=== PATIENT | male | born 1985 | race Caucasian/White ===

== ENCOUNTER 2023-08-25 01:14 | Emergency (ER) | payer SELFPAY ==
[2023-08-25 01:43] VITALS: BP 115/80
[2023-08-25 03:26] VITALS: PULSE 68; RESP 16
== END 2023-08-25 03:12 | disposition home or self-care (01) ==
LOC: EC 01:14
DX: Z02.83 Encounter for blood-alcohol and blood-drug test (principal)
CPT/HCPCS: 99499

== ENCOUNTER 2024-09-21 23:34 | Inpatient (IN) | payer OTHER ==
--- NOTE | 2024-09-22 00:07 | ED ---
Abdominal Pain HPI - General Chief Complaint: Abdominal Pain Stated Complaint: Abdominal Pain Time Seen by Provider: 09/21/24 23:49 Source: patient, EMS Mode of arrival: EMS Limitations: no limitations - History of Present Illness Initial Comments: Patient is a 39-year-old man with history of Crohn's disease. He presents to have evaluation of diffuse abdominal pain. The patient states he had been at work and started having abdominal pain that progressed until it was severe. He states it had come on about an hour prior to calling EMS. He states he has had similar episodes to this including 10 days ago when he was seen in emergency department here. The patient states at that time he had been discharged with prescription to have a course of steroid and other medication but he did not get the prescriptions filled. The patient states that he did have a bowel movement about 3 hours ago and that it was normal. No change in urination. He has had nausea. No hematemesis. Patient states he has had appendectomy when he was a youth. MD Complaint: abdominal pain Onset/Timin -: hour(s) Location: diffuse Radiation: none Migration to: no migration Severity: severe Quality: cramping, fullness Consistency: constant Improves With: nothing Worsens With: nothing Associated Symptoms: nausea - Related Data Home Medications Medication Instructions Recorded Confirmed No Known Home Medications 09/22/24 09/22/24 Allergies Allergy/AdvReac Type Severity Reaction Status Date / Time No Known Allergies Allergy Verified 09/22/24 09:43 Review of Systems ROS Statement: Those systems with pertinent positive or pertinent negative responses have been documented in the HPI. ROS Other: All systems not noted in ROS Statement are negative. Constitutional: Denies: fever, chills Respiratory: Denies: cough, dyspnea Cardiovascular: Denies: chest pain, palpitations, edema, syncope Gastrointestinal: Reports: abdominal pain, nausea. Denies: vomiting, diarrhea, constipation, melena, hematochezia Genitourinary: Denies: dysuria, hematuria, testicular pain, testicular mass Musculoskeletal: Denies: back pain Skin: Denies: rash Neurological: Denies: headache, weakness, numbness Past Medical History Additional Past Medical History / Comment(s): Crohns History of Any Multi-Drug Resistant Organisms: None Reported Past Surgical History: Appendectomy Past Psychological History: No Psychological Hx Reported Smoking Status: Current every day smoker, Vaper Past Alcohol Use History: Occasional Past Drug Use History: Marijuana General Exam Limitations: no limitations General appearance: alert, in no apparent distress Head exam: Present: atraumatic, normocephalic Eye exam: Present: normal appearance. Absent: scleral icterus, conjunctival injection ENT exam: Present: other (poor dentition) Neck exam: Present: normal inspection Respiratory exam: Present: normal lung sounds bilaterally. Absent: respiratory distress, wheezes, rales, rhonchi, stridor, accessory muscle use Cardiovascular Exam: Present: normal rhythm, bradycardia, normal heart sounds. Absent: systolic murmur, diastolic murmur, rubs, gallop GI/Abdominal exam: Present: distended, tenderness. Absent: guarding, rebound, rigid, mass, pulsatile mass, hernia Extremities exam: Present: normal inspection, normal capillary refill. Absent: pedal edema, calf tenderness Back exam: Present: normal inspection. Absent: CVA tenderness (R), CVA tenderness (L) Neurological exam: Present: alert Skin exam: Present: warm, dry, intact, normal color. Absent: rash Course Vital Signs 09/21/24 09/22/24 09/22/24 23:38 02:00 03:00 Temperature 97.8 F Pulse Rate 47 L 46 L 42 L Respiratory 20 20 18 Rate Blood Pressure 146/88 141/73 138/73 O2 Sat by Pulse 100 100 98 Oximetry 09/22/24 09/22/24 04:00 05:00 Temperature Pulse Rate 42 L 89 Respiratory 16 18 Rate Blood Pressure 122/72 138/82 O2 Sat by Pulse 96 100 Oximetry Medical Decision Making - Medical Decision Making Patient is a 39-year-old man here with abdominal pain. Patient is found to have distended abdomen with mild diffuse tenderness no rebound or guarding. The patient did have borborygmus. He is sent for CT scan and I did receive report that there were concerns about volvulus, however the symptoms had resolved after he had walked, had and passed some flatus an episode of vomiting. The patient's repeat lactic acid also decreasing. I did discuss the report with Dr. Reyes. Patient had been feeling better and was wanting to go home but then his symptoms began to recur. He had another episode of vomiting and recurrence of pain therefore patient will be admitted. At this time he did agree to have NG tube which he had initially refused which is placed by nursing staff and he is having nonbloody, clear yellow stomach content. - Lab Data Result diagrams: 09/22/24 18:30 09/22/24 18:30 Lab Results 09/21/24 09/21/24 09/21/24 Range/Units 23:50 23:50 23:50 WBC 15.72 H (4.50-10.00) 10*3/uL RBC 3.79 L (4.40-5.60) 10*6/uL Hgb 12.4 L (13.0-17.0) g/dL Hct 36.8 L (39.6-50.0) % MCV 97.1 H (80.0-97.0) fL MCH 32.7 H (27.0-32.0) pg MCHC 33.7 (32.0-37.0) g/dL Plt Count 498 H (140-440) 10*3/uL MPV 9.8 (9.5-12.2) fL Immature Gran % (Auto) 0.4 % Neutrophils % 66.2 % Lymphocytes % 23.7 % Monocytes % 7.9 % Eosinophils % 1.1 % Basophils % 0.7 % Immature Gran # 0.06 H (0.00-0.04) 10*3/uL Neutrophils # 10.41 H (1.80-7.70) 10*3/uL Lymphocytes # 3.73 (0.90-5.00) 10*3/uL Monocytes # 1.24 H (0.20-1.00) 10*3/uL Eosinophils # 0.17 (0.04-0.35) 10*3/uL Basophils # 0.11 H (0.00-0.10) 10*3/uL Sodium 142 (137-145) mmol/L Potassium 3.5 (3.5-5.1) mmol/L Chloride 107 (98-107) mmol/L Carbon Dioxide 20 L (22-30) mmol/L Anion Gap 15 mmol/L BUN 14 (9-20) mg/dL Creatinine 0.72 (0.66-1.25) mg/dL Est GFR (CKD-EPI)AfAm >90 (>60 ml/min/1.73 sqM) Est GFR (CKD-EPI)NonAf >90 (>60 ml/min/1.73 sqM) Glucose 108 H (74-99) mg/dL Lactic Ac Sepsis Rflx Plasma Lactic Acid Juan J 2.4 H* (0.7-2.0) mmol/L Calcium 10.0 (8.4-10.2) mg/dL Total Bilirubin 0.7 (0.2-1.3) mg/dL AST 48 (17-59) U/L ALT 56 H (4-49) U/L Alkaline Phosphatase 147 H (38-126) U/L C-Reactive Protein <0.5 (<1.0) mg/dL Total Protein 7.6 (6.3-8.2) g/dL Albumin 4.6 (3.5-5.0) g/dL Amylase 46 (30-110) U/L Lipase 68 (23-300) U/L Blood Type Confirm 09/21/24 09/22/24 09/22/24 Range/Units 23:50 00:49 03:19 WBC (4.50-10.00) 10*3/uL RBC (4.40-5.60) 10*6/uL Hgb (13.0-17.0) g/dL Hct (39.6-50.0) % MCV (80.0-97.0) fL MCH (27.0-32.0) pg MCHC (32.0-37.0) g/dL Plt Count (140-440) 10*3/uL MPV (9.5-12.2) fL Immature Gran % (Auto) % Neutrophils % % Lymphocytes % % Monocytes % % Eosinophils % % Basophils % % Immature Gran # (0.00-0.04) 10*3/uL Neutrophils # (1.80-7.70) 10*3/uL Lymphocytes # (0.90-5.00) 10*3/uL Monocytes # (0.20-1.00) 10*3/uL Eosinophils # (0.04-0.35) 10*3/uL Basophils # (0.00-0.10) 10*3/uL Sodium (137-145) mmol/L Potassium (3.5-5.1) mmol/L Chloride (98-107) mmol/L Carbon Dioxide (22-30) mmol/L Anion Gap mmol/L BUN (9-20) mg/dL Creatinine (0.66-1.25) mg/dL Est GFR (CKD-EPI)AfAm (>60 ml/min/1.73 sqM) Est GFR (CKD-EPI)NonAf (>60 ml/min/1.73 sqM) Glucose (74-99) mg/dL Lactic Ac Sepsis Rflx Y Plasma Lactic Acid Juan J 1.5 (0.7-2.0) mmol/L Calcium (8.4-10.2) mg/dL Total Bilirubin (0.2-1.3) mg/dL AST (17-59) U/L ALT (4-49) U/L Alkaline Phosphatase (38-126) U/L C-Reactive Protein (<1.0) mg/dL Total Protein (6.3-8.2) g/dL Albumin (3.5-5.0) g/dL Amylase (30-110) U/L Lipase (23-300) U/L Blood Type Confirm O Negative Disposition Clinical Impression: Abdominal pain Disposition: ADMITTED IP TO THIS HOSP Condition: Undetermined Is patient prescribed a controlled substance at d/c from ED?: No
[2024-09-22 00:19] LABS: Basophils # (A) 0.11 10*3/uL (0.00-0.10); Basophils % (A) 0.7 %; Eosinophils # (A) 0.17 10*3/uL (0.04-0.35); Eosinophils % (A) 1.1 %; HCT 36.8 % (39.6-50.0); HGB 12.4 g/dL (13.0-17.0); Lymphocytes # (A) 3.73 10*3/uL (0.90-5.00); Lymphocytes % (A) 23.7 %; MCH 32.7 pg (27.0-32.0); MCHC 33.7 g/dL (32.0-37.0); MCV 97.1 fL (80.0-97.0); Mean Platelet Volume 9.8 fL (9.5-12.2); Monocytes # (A) 1.24 10*3/uL (0.20-1.00); Monocytes % (A) 7.9 %; Neutrophils # (A) 10.41 10*3/uL (1.80-7.70); Neutrophils % (A) 66.2 %; Platelet Count 498 10*3/uL (140-440); RBC 3.79 10*6/uL (4.40-5.60); RDW 14.9 % (11.5-14.5); WBC 15.72 10*3/uL (4.50-10.00)
[2024-09-22] MEDS: SODIUM CHLORIDE 0.9% 500 ML 500 ML IV STA (00:24)
[2024-09-22] MEDS: MORPHINE SULFATE 4 MG/ML SYRINGE IV STA ×2 (00:25→00:55)
[2024-09-22 00:29] LABS: ALT 56 U/L (4-49); AST 48 U/L (17-59); African American GFR (CKD) >90 (>60 ml/min/1.73 sqM); Albumin 4.6 g/dL (3.5-5.0); Alkaline Phosphatase 147 U/L (38-126); Amylase 46 U/L (30-110); Anion Gap 15 mmol/L; Blood Urea Nitrogen 14 mg/dL (9-20); C Reactive Protein <0.5 mg/dL (<1.0); Carbon Dioxide 20 mmol/L (22-30); Chloride 107 mmol/L (98-107); Glucose 108 mg/dL (74-99); Lipase 68 U/L (23-300); Non-African American GFR(CKD) >90 (>60 ml/min/1.73 sqM); Potassium 3.5 mmol/L (3.5-5.1); Sodium 142 mmol/L (137-145); Total Bilirubin 0.7 mg/dL (0.2-1.3); Total Protein 7.6 g/dL (6.3-8.2)
[2024-09-22] MEDS: HYDROmorphone 0.5 MG/0.5 ML SYRINGE IVP STA ×3 (01:21→06:27)
--- NOTE | 2024-09-22 04:11 | CT ---
EXAM: CT Abdomen and Pelvis With Intravenous Contrast CLINICAL HISTORY: Diffuse Abdominal Pain TECHNIQUE: Axial computed tomography images of the abdomen and pelvis with intravenous contrast. CTDI is 14 mGy and DLP is 764.8 mGy-cm. This CT exam was performed using one or more of the following dose reduction techniques: automated exposure control, adjustment of the mA and/or kV according to patient size, and/or use of iterative reconstruction technique. COMPARISON: CT abdomen and pelvis 09/12/2024 FINDINGS: Lung bases: Unremarkable. No mass. No consolidation. ABDOMEN: Liver: Unremarkable. No mass. Gallbladder and bile ducts: Unremarkable. No calcified stones. No ductal dilation. Pancreas: Unremarkable. No mass. No ductal dilation. Spleen: Unremarkable. No splenomegaly. Adrenals: Unremarkable. No mass. Kidneys and ureters: Simple appearing bilateral renal cysts are present, no follow up is needed. No hydronephrosis. Stomach and bowel: Redemonstrated markedly distended small bowel with new thickening of the wall of the portion small bowel. PELVIS: Appendix: No findings to suggest acute appendicitis. Bladder: Unremarkable. No mass. Reproductive: Unremarkable as visualized. ABDOMEN and PELVIS: Intraperitoneal space: On the coronal images there appears to be swirling of the mesentery at the level of the occlusion of the SMA. No free air. No significant fluid collection. Bones/joints: No acute fracture. No dislocation. Soft tissues: Unremarkable. 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 No abdominal aortic aneurysm. Lymph nodes: Mesenteric lymphadenopathy is nonspecific. IMPRESSION: 1. 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 2. Redemonstrated markedly distended small bowel with new thickening of the wall of the portion small bowel. This is highly concerning for ischemia. 3. On the coronal images there appears to be swirling of the mesentery at the level of the occlusion of the SMA. Given this closed loop obstruction is high in the differential and could be the etiology of the occlusion of the SMA. Surgical consultation is recommended. 4. Mesenteric lymphadenopathy is nonspecific. <MYCVCSECTION> Communications: 09/22/24 04:18 Call Doctor Regarding Above results, called Dr. Walters on 09/22 04:18 (-04:00)
[2024-09-22] MEDS ORDERED: NALOXONE 0.4 MG/ML 1 ML VIAL IV PRN (05:09)
[2024-09-22] MEDS: SODIUM CHLORIDE 0.9% 1,000 ML IV SCH (06:27)
[2024-09-22] MEDS: ONDANSETRON 4 MG/2 ML VIAL IVP STA (06:28)
[2024-09-22] MEDS ORDERED: IOPAMIDOL CONTRAST (ORAL USE) VIAL PO PRN (06:58)
--- NOTE | 2024-09-22 07:13 | XR ---
EXAMINATION TYPE: XR chest 1V confirm line plcmt DATE OF EXAM: 09/22/2024 6:46 AM COMPARISON: CT CLINICAL INDICATION: Male, 39 years old with history of ng tube placement; [facility] TECHNIQUE: XR chest 1V confirm line plcmt Frontal view of the chest. FINDINGS: Lungs/Pleura: There is no evidence of pleural effusion, focal consolidation, or pneumothorax. Pulmonary vascularity: Unremarkable. Heart/mediastinum: Cardiomediastinal silhouette is unremarkable. Musculoskeletal: No acute osseous pathology. Other findings: Gaseous dilation of bowel throughout the abdomen Lines/Tubes: Nasogastric tube with its distal tip and side-port projecting under the diaphragm. IMPRESSION: Gaseous dilation of bowel throughout the abdomen with NG tube in appropriate position. [facility], , 09/22/2024 7:10 AM
--- NOTE | 2024-09-22 09:05 | P.GSCN ---
History of Present Illness Consult date: 09/22/24 Reason for Consult: Acute abdominal pain, nausea vomiting History of present illness: This is a 39-year-old male who presented the emergency room with complaints of severe abdominal pain nausea and vomiting. Patient was seen with similar symp toms on September 17 in the ER. Patient was sent home as it was thought to be a flareup of his Crohn's. Patient was prescribed prednisone. Patient has had increased abdominal distention nausea and abdominal pain. Patient is moaning in his bed. Patient's CAT scan is suggestive of possible small bowel ischemia with internal herniation and occlusion of the SMA. The patient has a massively distended stomach and small bowel. Past Medical History Additional Past Medical History / Comment(s): Crohns History of Any Multi-Drug Resistant Organisms: None Reported Past Surgical History: Appendectomy Past Psychological History: No Psychological Hx Reported Smoking Status: Current every day smoker, Vaper Past Alcohol Use History: Occasional Past Drug Use History: Marijuana Medications and Allergies Home Medications Medication Instructions Recorded Confirmed Type Ondansetron Odt [Zofran Odt] 4 mg PO Q8HR PRN #10 tab 09/12/24 Rx predniSONE [Deltasone] 40 mg PO DAILY 7 Days #14 tab 09/12/24 Rx Allergies Allergy/AdvReac Type Severity Reaction Status Date / Time No Known Allergies Allergy Verified 09/21/24 23:41 Surgical - Exam Vital Signs Temp Pulse Resp BP Pulse Ox 97.8 F 47 L 20 146/88 100 09/21/24 23:38 09/21/24 23:38 09/21/24 23:38 09/21/24 23:38 09/21/24 23:38 - General moderate distress, chronically ill - Eyes PERRL - ENT normal pinna - Cardiovascular Rhythm: regular - Abdomen Abdomen is massively distended. There is rebound tenderness. Results - Labs 09/21/24 23:50 09/21/24 23:50 Abnormal Lab Results - Last 24 Hours (Table) 09/21/24 09/21/24 09/21/24 Range/Units 23:50 23:50 23:50 WBC 15.72 H (4.50-10.00) 10*3/uL RBC 3.79 L (4.40-5.60) 10*6/uL Hgb 12.4 L (13.0-17.0) g/dL Hct 36.8 L (39.6-50.0) % MCV 97.1 H (80.0-97.0) fL MCH 32.7 H (27.0-32.0) pg Plt Count 498 H (140-440) 10*3/uL Immature Gran # 0.06 H (0.00-0.04) 10*3/uL Neutrophils # 10.41 H (1.80-7.70) 10*3/uL Monocytes # 1.24 H (0.20-1.00) 10*3/uL Basophils # 0.11 H (0.00-0.10) 10*3/uL Carbon Dioxide 20 L (22-30) mmol/L Glucose 108 H (74-99) mg/dL Plasma Lactic Acid Juan J 2.4 H* (0.7-2.0) mmol/L ALT 56 H (4-49) U/L Alkaline Phosphatase 147 H (38-126) U/L Diabetes panel 09/21/24 Range/Units 23:50 Sodium 142 (137-145) mmol/L Potassium 3.5 (3.5-5.1) mmol/L Chloride 107 (98-107) mmol/L Carbon Dioxide 20 L (22-30) mmol/L BUN 14 (9-20) mg/dL Creatinine 0.72 (0.66-1.25) mg/dL Glucose 108 H (74-99) mg/dL Calcium 10.0 (8.4-10.2) mg/dL AST 48 (17-59) U/L ALT 56 H (4-49) U/L Alkaline Phosphatase 147 H (38-126) U/L Total Protein 7.6 (6.3-8.2) g/dL Albumin 4.6 (3.5-5.0) g/dL Calcium panel 09/21/24 Range/Units 23:50 Calcium 10.0 (8.4-10.2) mg/dL Albumin 4.6 (3.5-5.0) g/dL Pituitary panel 09/21/24 Range/Units 23:50 Sodium 142 (137-145) mmol/L Potassium 3.5 (3.5-5.1) mmol/L Chloride 107 (98-107) mmol/L Carbon Dioxide 20 L (22-30) mmol/L BUN 14 (9-20) mg/dL Creatinine 0.72 (0.66-1.25) mg/dL Glucose 108 H (74-99) mg/dL Calcium 10.0 (8.4-10.2) mg/dL Adrenal panel 09/21/24 Range/Units 23:50 Sodium 142 (137-145) mmol/L Potassium 3.5 (3.5-5.1) mmol/L Chloride 107 (98-107) mmol/L Carbon Dioxide 20 L (22-30) mmol/L BUN 14 (9-20) mg/dL Creatinine 0.72 (0.66-1.25) mg/dL Glucose 108 H (74-99) mg/dL Calcium 10.0 (8.4-10.2) mg/dL Total Bilirubin 0.7 (0.2-1.3) mg/dL AST 48 (17-59) U/L ALT 56 H (4-49) U/L Alkaline Phosphatase 147 H (38-126) U/L Total Protein 7.6 (6.3-8.2) g/dL Albumin 4.6 (3.5-5.0) g/dL Assessment and Plan Plan: Small bowel obstruction. Patient will be taken to the OR today.
[2024-09-22] MEDS: HYDROmorphone 0.5 MG/0.5 ML SYRINGE IVP PRN (09:19)
[2024-09-22] MEDS: PANTOPRAZOLE 40 MG/10 ML VIAL IV SCH (09:20)
[2024-09-22 09:55] LABS: Glucose,Whole Blood 255 mg/dL (70-110)
[2024-09-22] MEDS: ALBUMIN HUMAN 5% 250 ML in EMPTY BAG 1 BAG IVPB STA (10:26)
[2024-09-22] MEDS ORDERED: ETOMIDATE 2 MG/ML 10 ML VIAL ONE (10:47)
[2024-09-22] MEDS ORDERED: KETAMINE HCL IN 0.9 % NACL 50 MG/5 ML SYRINGE ONE (10:47)
[2024-09-22] MEDS ORDERED: VASOPRESSIN 20 UNIT/ML 1 ML VIAL ONE (10:47)
[2024-09-22] MEDS ORDERED: SUCCINYLCHOLINE CHLORIDE 200 MG/10 ML VIAL IV ONE (10:47)
[2024-09-22] MEDS ORDERED: SODIUM BICARB 8.4% 50 ML SYR (1 MEQ/ML) ONE (10:47)
[2024-09-22] MEDS ORDERED: PROPOFOL 10 MG/ML 20 ML VIAL IV ONE (10:47)
[2024-09-22] MEDS ORDERED: WATER FOR INJECTION, STERILE 10 ML VIAL IV ONE (10:47)
[2024-09-22] MEDS ORDERED: CALCIUM CHLORIDE 100 MG/ML 10 ML SYRINGE ONE (10:47)
[2024-09-22] MEDS ORDERED: ROCURONIUM 10 MG/ML (5 ML VIAL) IV ONE (10:47)
[2024-09-22] MEDS: LACTATED RINGERS 1,000 ML IV ONE ×4 (10:52→18:50)
--- NOTE | 2024-09-22 11:10 | XR ---
EXAMINATION TYPE: XR chest 1V portable DATE OF EXAM: 09/22/2024 10:37 AM COMPARISON: Chest radiographs from CLINICAL INDICATION: Male, 39 years old with history of check line placement; [facility] TECHNIQUE: XR chest 1V portable Frontal view of the chest. FINDINGS: Lungs/Pleura: There is no evidence of pleural effusion, focal consolidation, or pneumothorax. Pulmonary vascularity: Unremarkable. Heart/mediastinum: Cardiomediastinal silhouette is unremarkable. Musculoskeletal: No acute osseous pathology. Other findings: Gaseous dilation of bowel in the abdomen. Lines/Tubes: Nasogastric tube with its distal tip and side-port projecting under the diaphragm. Right internal jugular central venous catheter with distal tip at the cavoatrial junction. IMPRESSION: 1. No acute cardiopulmonary disease/process. 2. NG tube noted in appropriate position. Gaseous dilation of bowel throughout the abdomen. [facility], , 09/22/2024 11:08 AM
[2024-09-22 12:28] LABS: Allen Test Performed? Yes
[2024-09-22 12:30] LABS: ABG Base Excess -14.2 mmol/L; ABG HCO3 14 mmol/L (21-25); ABG Oxygen Saturation 97.7 % (94-97); ABG PCO2 40 mmHg (35-45); ABG PO2 249 mmHg (83-108); ABG TCO2 15 mmol/L (19-24)
--- NOTE | 2024-09-22 12:30 | P.OP ---
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 He received general anesthesia. His abdomen was prepped and draped you sterile fashion. The abdomen was tense and quite distended. A skin incision was made. And then the skin abdominal cavity is entered by dividing the abdominal wall with electrocautery. The small bowel appeared to be dusky and was massively dilated. The small bowel was dilated to approximately 15 cm in diameter. Due to the small bowel dilatation it was very difficult to see the source of the obstruction. At this point a enterotomy was made in the small bowel and then decompression of the small bowel was performed with suction. Approximately 7 L of fluid was removed from the small bowel. The enterotomy was then stapled with a BI stapler. At this point the small bowel obstruction was visualized. The small bowel had been previously operated on. There was evidence of a ileotrans verse colonic anastomosis. It was unsure if the area prior to the anastomosis was strictured down due to scar tissue or Crohn's disease. The small bowel was transected proximal to the stricture and then the colon was transected distal to the stricture and then using the Enseal device the mesentery of the bowel was divided and steps of the pathology. At this point there appeared to be rotation of the small bowel. The small bowel w was rotated to relieve the torsion. The small bowel appeared to be viable. At this point the ileostomy brought up in the right lower quadrant. The fascia was closed looped in #1-0 PDS suture. The skin was closed A rodrigo s. The ileostomy matured with 3-0 Vicryl suture. Patient tolerated procedure. He was sent to the ICU in critical condition.
[2024-09-22 12:31] LABS: ABG PH 7.15 (7.35-7.45)
[2024-09-22 12:32] LABS: INR 1.5 (<1.2); Prothrombin Time 15.3 sec (10.0-12.5)
[2024-09-22 12:42] LABS: ALT 28 U/L (4-49); AST 25 U/L (17-59); African American GFR (CKD) >90 (>60 ml/min/1.73 sqM); Albumin 2.7 g/dL (3.5-5.0); Alkaline Phosphatase 67 U/L (38-126); Anion Gap 18 mmol/L; Blood Urea Nitrogen 16 mg/dL (9-20); Calcium 7.7 mg/dL (8.4-10.2); Carbon Dioxide 12 mmol/L (22-30); Chloride 114 mmol/L (98-107); Glucose 233 mg/dL (74-99); Non-African American GFR(CKD) >90 (>60 ml/min/1.73 sqM); Potassium 3.4 mmol/L (3.5-5.1); Sodium 144 mmol/L (137-145); Total Bilirubin 0.3 mg/dL (0.2-1.3); Total Protein 4.7 g/dL (6.3-8.2)
[2024-09-22] MEDS ORDERED: Magnesium Replacement Protocol 1 EACH MISC MISCELLANE PRN (12:53)
[2024-09-22] MEDS ORDERED: Potassium Replacement Protocol 1 EACH MISC MISCELLANE PRN (12:53)
[2024-09-22 13:03] LABS: Glucose,Whole Blood 181 mg/dL (70-110)
[2024-09-22 13:16] LABS: ABG Base Excess -6.8 mmol/L; ABG HCO3 20 mmol/L (21-25); ABG Oxygen Saturation 98.5 % (94-97); ABG PCO2 48 mmHg (35-45); ABG PH 7.24 (7.35-7.45); ABG PO2 279 mmHg (83-108); ABG TCO2 22 mmol/L (19-24); Allen Test Performed? Yes
[2024-09-22 13:23] LABS: Basophils # (A) 0.04 10*3/uL (0.00-0.10); Basophils % (A) 0.3 %; HCT 28.6 % (39.6-50.0); Lymphocytes # (A) 1.04 10*3/uL (0.90-5.00); Lymphocytes % (A) 7.7 %; MCHC 33.2 g/dL (32.0-37.0); MCV 96.3 fL (80.0-97.0); Mean Platelet Volume 8.9 fL (9.5-12.2); Monocytes # (A) 1.04 10*3/uL (0.20-1.00); Monocytes % (A) 7.7 %; Neutrophils # (A) 11.33 10*3/uL (1.80-7.70); Neutrophils % (A) 84.1 %; Platelet Count 233 10*3/uL (140-440); RBC 2.97 10*6/uL (4.40-5.60); RDW 16.8 % (11.5-14.5); WBC 13.48 10*3/uL (4.50-10.00)
--- NOTE | 2024-09-22 13:24 | P.HPIM ---
History of Present Illness 39-year-old male with history of severe Crohn's came to the hospital with nausea vomiting patient was recently discharged from the hospital after he was treated for Crohn's with prednisone. Patient is found to have bowel obstruction. Patient was taken to IR even before I evaluated the patient. 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 Patient underwent expiratory laparotomy and decompression of the small bowel, ileocolonic anastomotic resection and ileostomy creation. Patient is presently intubated on pressor support patient probably will require 2 pressors at this time receiving IV fluids. REVIEW OF SYSTEMS: All other systems are negative except those mentioned in the HPI PHYSICAL EXAMINATION: GENERAL intubated sedated on ventilatory support. HEENT: Pupils are round and equally reacting to light. EOMI. No scleral icterus. No conjunctival pallor. Normocephalic, atraumatic. No pharyngeal erythema. No thyromegaly. CARDIOVASCULAR: S1 and S2 present. No murmurs, rubs, or gallops. PULMONARY: Chest is clear to auscultation, no wheezing or crackles. ABDOMEN: Postsurgical defect abdomen, ileostomy MUSCULOSKELETAL: No joint swelling or deformity. EXTREMITIES: No cyanosis, clubbing, or pedal edema. NEUROLOGICAL sedated SKIN: No rashes. Assessment and plan -Small bowel obstruction status post small bowel resection patient has Crohn's disease and stricture secondary to that patient is presently hemodynamically unstable is on ventilatory support - Acute respiratory failure ventilator dependence post to surgery - Hypovolemic shock for which patient is on 2 pressors patient is presently not on IV antibiotics patient may end up needing empiric antibiotics. Continue with IV fluids - History of Crohn's disease complicated Hypokalemia replace potassium DVT prophylaxis: Subcutaneous heparin Past Medical History Additional Past Medical History / Comment(s): Crohns History of Any Multi-Drug Resistant Organisms: None Reported Past Surgical History: Appendectomy Past Psychological History: No Psychological Hx Reported Smoking Status: Current every day smoker, Vaper Past Alcohol Use History: Occasional Past Drug Use History: Marijuana Medications and Allergies Home Medications Medication Instructions Recorded Confirmed Type No Known Home Medications 09/22/24 09/22/24 History Allergies Allergy/AdvReac Type Severity Reaction Status Date / Time No Known Allergies Allergy Verified 09/22/24 09:43 Physical Exam Vitals: Vital Signs Temp Pulse Pulse Resp BP BP Pulse Ox 09/22/24 13:04 09/22/24 12:57 09/22/24 10:40 155 H 45 H 110/47 89 L 09/22/24 10:16 150 H 35 H 124/90 95 09/22/24 10:09 97.5 F L 144 H 35 H 154/82 96 09/22/24 05:00 89 18 138/82 100 09/22/24 04:00 42 L 16 122/72 96 09/22/24 03:00 42 L 18 138/73 98 09/22/24 02:00 46 L 20 141/73 100 09/21/24 23:38 97.8 F 47 L 20 146/88 100 FiO2 09/22/24 13:04 60 09/22/24 12:57 60 09/22/24 10:40 09/22/24 10:16 09/22/24 10:09 09/22/24 05:00 09/22/24 04:00 09/22/24 03:00 09/22/24 02:00 09/21/24 23:38 Intake and Output 09/21/24 09/22/24 09/22/24 22:59 06:59 14:59 Intake Total 2375 Output Total 360 2014 Intake: IV 1800 Blood Product 575 Rc Pheresis 2 As3 Unit 295 [id number] Rc Pheresis 2 As3 Unit 280 [id number] Output: Urine 200 Estimated Blood Loss 160 Other: Weight 63.503 kg Results CBC & Chem 7: 09/21/24 23:50 09/22/24 11:47 Labs: Abnormal Lab Results - Last 24 Hours (Table) 09/21/24 09/21/24 09/21/24 Range/Units 23:50 23:50 23:50 WBC 15.72 H (4.50-10.00) 10*3/uL RBC 3.79 L (4.40-5.60) 10*6/uL Hgb 12.4 L (13.0-17.0) g/dL Hct 36.8 L (39.6-50.0) % MCV 97.1 H (80.0-97.0) fL MCH 32.7 H (27.0-32.0) pg Plt Count 498 H (140-440) 10*3/uL Immature Gran # 0.06 H (0.00-0.04) 10*3/uL Neutrophils # 10.41 H (1.80-7.70) 10*3/uL Monocytes # 1.24 H (0.20-1.00) 10*3/uL Basophils # 0.11 H (0.00-0.10) 10*3/uL PT (10.0-12.5) sec INR (<1.2) ABG pH (7.35-7.45) ABG pCO2 (35-45) mmHg ABG pO2 (83-108) mmHg ABG HCO3 (21-25) mmol/L ABG Total CO2 (19-24) mmol/L ABG O2 Saturation (94-97) % Hemoglobin (13.0-17.5) gm/dL Potassium (3.5-5.1) mmol/L Chloride (98-107) mmol/L Carbon Dioxide 20 L (22-30) mmol/L Glucose 108 H (74-99) mg/dL POC Glucose (mg/dL) (70-110) mg/dL Plasma Lactic Acid Juan J 2.4 H* (0.7-2.0) mmol/L Calcium (8.4-10.2) mg/dL ALT 56 H (4-49) U/L Alkaline Phosphatase 147 H (38-126) U/L Total Protein (6.3-8.2) g/dL Albumin (3.5-5.0) g/dL Crossmatch 09/22/24 09/22/24 09/22/24 Range/Units 08:28 09:24 11:47 WBC (4.50-10.00) 10*3/uL RBC (4.40-5.60) 10*6/uL Hgb (13.0-17.0) g/dL Hct (39.6-50.0) % MCV (80.0-97.0) fL MCH (27.0-32.0) pg Plt Count (140-440) 10*3/uL Immature Gran # (0.00-0.04) 10*3/uL Neutrophils # (1.80-7.70) 10*3/uL Monocytes # (0.20-1.00) 10*3/uL Basophils # (0.00-0.10) 10*3/uL PT (10.0-12.5) sec INR (<1.2) ABG pH 7.15 L* (7.35-7.45) ABG pCO2 (35-45) mmHg ABG pO2 249 H (83-108) mmHg ABG HCO3 14 L (21-25) mmol/L ABG Total CO2 15 L (19-24) mmol/L ABG O2 Saturation 97.7 H (94-97) % Hemoglobin (13.0-17.5) gm/dL Potassium (3.5-5.1) mmol/L Chloride (98-107) mmol/L Carbon Dioxide (22-30) mmol/L Glucose (74-99) mg/dL POC Glucose (mg/dL) 255 H (70-110) mg/dL Plasma Lactic Acid Juan J (0.7-2.0) mmol/L Calcium (8.4-10.2) mg/dL ALT (4-49) U/L Alkaline Phosphatase (38-126) U/L Total Protein (6.3-8.2) g/dL Albumin (3.5-5.0) g/dL Crossmatch See Detail 09/22/24 09/22/24 09/22/24 Range/Units 11:47 11:47 13:01 WBC (4.50-10.00) 10*3/uL RBC (4.40-5.60) 10*6/uL Hgb (13.0-17.0) g/dL Hct (39.6-50.0) % MCV (80.0-97.0) fL MCH (27.0-32.0) pg Plt Count (140-440) 10*3/uL Immature Gran # (0.00-0.04) 10*3/uL Neutrophils # (1.80-7.70) 10*3/uL Monocytes # (0.20-1.00) 10*3/uL Basophils # (0.00-0.10) 10*3/uL PT 15.3 H (10.0-12.5) sec INR 1.5 H (<1.2) ABG pH (7.35-7.45) ABG pCO2 (35-45) mmHg ABG pO2 (83-108) mmHg ABG HCO3 (21-25) mmol/L ABG Total CO2 (19-24) mmol/L ABG O2 Saturation (94-97) % Hemoglobin (13.0-17.5) gm/dL Potassium 3.4 L (3.5-5.1) mmol/L Chloride 114 H (98-107) mmol/L Carbon Dioxide 12 L (22-30) mmol/L Glucose 233 H (74-99) mg/dL POC Glucose (mg/dL) 181 H (70-110) mg/dL Plasma Lactic Acid Juan J (0.7-2.0) mmol/L Calcium 7.7 L (8.4-10.2) mg/dL ALT (4-49) U/L Alkaline Phosphatase (38-126) U/L Total Protein 4.7 L (6.3-8.2) g/dL Albumin 2.7 L (3.5-5.0) g/dL Crossmatch 09/22/24 Range/Units 13:11 WBC (4.50-10.00) 10*3/uL RBC (4.40-5.60) 10*6/uL Hgb (13.0-17.0) g/dL Hct (39.6-50.0) % MCV (80.0-97.0) fL MCH (27.0-32.0) pg Plt Count (140-440) 10*3/uL Immature Gran # (0.00-0.04) 10*3/uL Neutrophils # (1.80-7.70) 10*3/uL Monocytes # (0.20-1.00) 10*3/uL Basophils # (0.00-0.10) 10*3/uL PT (10.0-12.5) sec INR (<1.2) ABG pH 7.24 L (7.35-7.45) ABG pCO2 48 H (35-45) mmHg ABG pO2 279 H (83-108) mmHg ABG HCO3 20 L (21-25) mmol/L ABG Total CO2 (19-24) mmol/L ABG O2 Saturation 98.5 H (94-97) % Hemoglobin 9.8 L (13.0-17.5) gm/dL Potassium (3.5-5.1) mmol/L Chloride (98-107) mmol/L Carbon Dioxide (22-30) mmol/L Glucose (74-99) mg/dL POC Glucose (mg/dL) (70-110) mg/dL Plasma Lactic Acid Juan J (0.7-2.0) mmol/L Calcium (8.4-10.2) mg/dL ALT (4-49) U/L Alkaline Phosphatase (38-126) U/L Total Protein (6.3-8.2) g/dL Albumin (3.5-5.0) g/dL Crossmatch
[2024-09-22] MEDS: NOREPINEPHRINE 8 MG in SODIUM CHLORIDE 0.9% 250 ML IV SCH (13:27)
[2024-09-22] MEDS: VASOPRESSIN 60 UNIT in SODIUM CHLORIDE 0.9% 150 ML IV SCH (13:28)
[2024-09-22 13:34] LABS: African American GFR (CKD) >90 (>60 ml/min/1.73 sqM); Anion Gap 11 mmol/L; Blood Urea Nitrogen 19 mg/dL (9-20); Calcium 8.1 mg/dL (8.4-10.2); Carbon Dioxide 20 mmol/L (22-30); Chloride 114 mmol/L (98-107); Glucose 178 mg/dL (74-99); Magnesium 1.7 mg/dL (1.6-2.3); Non-African American GFR(CKD) >90 (>60 ml/min/1.73 sqM); Potassium 3.5 mmol/L (3.5-5.1); Sodium 145 mmol/L (137-145)
[2024-09-22] MEDS: SODIUM BICARB 8.4% 50 ML SYR (1 MEQ/ML) IV STA (13:46)
--- NOTE | 2024-09-22 13:46 | XR ---
EXAMINATION TYPE: XR chest 1V portable DATE OF EXAM: 09/22/2024 1:36 PM COMPARISON: Chest radiographs from 09/22/2024 CLINICAL INDICATION: Male, 39 years old with history of Tube placement; [facility] TECHNIQUE: XR chest 1V portable Frontal view of the chest. FINDINGS: Lungs/Pleura: Low lung volumes are present. There is no evidence of pleural effusion, focal consolida tion, or pneumothorax. Pulmonary vascularity: Unremarkable. Heart/mediastinum: Cardiomediastinal silhouette is unremarkable. Musculoskeletal: No acute osseous pathology. Other findings: None Lines/Tubes: Endotracheal tube with distal tip 3.0 cm above the jeaneth. Nasogastric tube with its distal tip and side-port projecting under the diaphragm. Right internal jugular central venous catheter with distal tip at the cavoatrial junction. IMPRESSION: Support tubes in satisfactory position. [facility], , 09/22/2024 1:43 PM
[2024-09-22] MEDS: CISATRACURIUM 2 MG/ML 5 ML VIAL IV ONE (13:57)
[2024-09-22 14:07] LABS: HGB 9.5 g/dL (13.0-17.0)
[2024-09-22] MEDS: MAGNESIUM SULFATE-D5W PMX 1 GM in DEXTROSE/WATER 1 100ML.BAG IVPB ONE (14:12)
[2024-09-22] MEDS: POTASSIUM CHLORIDE 20 MEQ in WATER FOR INJECTION 1 100ML.BAG IVPB SCH (14:12)
[2024-09-22] MEDS: DEXTROSE 5% IN WATER 1,000 ML with SODIUM BICARB (1 MEQ/ML) 150 ML IV SCH (14:22)
[2024-09-22] MEDS: EPINEPHrine 4 MG in DEXTROSE 5% IN WATER 250 ML IV SCH (14:31)
--- NOTE | 2024-09-22 14:32 | P.CNPUL ---
History of Present Illness Consult date: 09/22/24 Requesting physician: Nazario Reyes Chief complaint: Severe hypotension, ICU management History of present illness: This is a 39-year-old white male with history of Crohn's disease, presented to the ER with chronic massive small bowel obstruction with small bowel dilated up to 15 cm. Patient is known to have history of Crohn's strictures of ileocolonic anastomosis. Patient had to be taken to the operating room by surgery, underwent exploratory laparotomy decompression of small bowel, ileocolonic anastomotic resection, and ileostomy. Patient was found to have small bowel appeared dusky with massive dilatation, it was dilated up to 15 cm in diameter. It was difficult to assess the source of the obstruction hence the patient underwent enterotomy made in the small bowel and then the decompression of the small bowel was performed with suction. Apparently the patient had 7 L of fluid removed from the small bowel, enterotomy was then stapled with a BI stapler. Then the surgeon was able to visualize the small bowel obstruction, surgeon was able to visualize the site of his previous small bowel surgery and the site was noted to have ileotransverse colonic anastomosis. It was unsure if the area prior to the anastomosis was strictured down due to scar tissue or Crohn's disease. Small bowel was transected proximal to the stricture and then the colon was transected distal to the stricture then using the Enseal device the mesentery of the bowel was divided and steps of the pathology. Patient was also noted to have rotation of the small bowel and small bowel was rotated to relieve the torsion. Small bowel appeared viable then the patient underwent ileostomy which was brought up to the right lower quadrant. Patient was transferred to the ICU after surgery and he was quite hypotensive presently intubated mechanically ventilated hypotensive requiring maximal pressors patient is now on maximal norepinephrine at 0.6 mcg/kg/min receiving vasopressin at 0.04 units/min he is also receiving epinephrine being titrated. Patient is intubated and mechanically ventilated. On assist-control rate of 12 which was changed to 16 tidal volume was 500 FiO2 100% which was brought down to 60% and PEEP at 5. ABG showed a pO2 of 279 pCO2 48 pH of 7.24 patient is also receiving bicarb is also on a bicarb drip because prior ABG showed a pH of 7.15 with a PCO2 of 40. WBC count is 13.48 hemoglobin 9.5 platelets are 233. When I saw the patient in the ICU, apparently he needed more venous access according to the nurse taking care of the patient, although he does have a double-lumen catheter in the right IJ area. Went ahead and placed a triple-lumen catheter in the right femoral vein. Recommended more fluids, more blood to be given, and pressors to be titrated accordingly. The overall picture looks very grim, clinically the patient is quite ill, and remains hypotensive in spite of all these pressors. Review of Systems ROS unobtainable: due to endotracheal tube Past Medical History Additional Past Medical History / Comment(s): Crohns History of Any Multi-Drug Resistant Organisms: None Reported Past Surgical History: Appendectomy Past Psychological History: No Psychological Hx Reported Smoking Status: Current every day smoker, Vaper Past Alcohol Use History: Occasional Past Drug Use History: Marijuana Medications and Allergies Home Medications Medication Instructions Recorded Confirmed Type No Known Home Medications 09/22/24 09/22/24 History Allergies Allergy/AdvReac Type Severity Reaction Status Date / Time No Known Allergies Allergy Verified 09/22/24 09:43 Physical Exam Vitals: Vital Signs Temp Pulse Pulse Resp BP BP Pulse Ox 09/22/24 13:04 09/22/24 12:57 09/22/24 12:06 146 H 16 121/74 09/22/24 10:40 155 H 45 H 110/47 89 L 09/22/24 10:16 150 H 35 H 124/90 95 09/22/24 10:09 97.5 F L 144 H 35 H 154/82 96 09/22/24 05:00 89 18 138/82 100 09/22/24 04:00 42 L 16 122/72 96 09/22/24 03:00 42 L 18 138/73 98 09/22/24 02:00 46 L 20 141/73 100 09/21/24 23:38 97.8 F 47 L 20 146/88 100 FiO2 09/22/24 13:04 60 09/22/24 12:57 60 09/22/24 12:06 09/22/24 10:40 09/22/24 10:16 09/22/24 10:09 09/22/24 05:00 09/22/24 04:00 09/22/24 03:00 09/22/24 02:00 09/21/24 23:38 Intake and Output 09/21/24 09/22/24 09/22/24 22:59 06:59 14:59 Intake Total 2709.143 Output Total 385 Balance 2324.143 Intake: IV 2133 Magnesium Sulfate-D5w Pmx 100 1 gm In Dextrose/Water 1 100ml.bag @ 100 mls/hr IVPB ONCE ONE Rx#: [id number] Potassium Chloride 20 meq 100 In Water For Injection 1 100ml.bag @ 50 mls/hr IVPB Q2H [facility] Rx#: [id number] Pressure bag 3 Sodium Chloride 0.9% 1, 130 000 ml @ 130 mls/hr IV . [id number] [facility] Rx#:[id number] Intake, IV Titration 1.143 Amount propofoL 1,000 mg In 1.143 Empty Bag 1 bag @ 15 MCG/ KG/MIN 5.715 mls/hr IV . [id number] [facility] Rx#:[id number] Blood Product 575 Rc Pheresis 2 As3 Unit 295 [id number] Rc Pheresis 2 As3 Unit 280 [id number] Rc Pheresis As-3 Unit 0 [id number] Output: Urine 225 Estimated Blood Loss 160 Other: Weight 63.503 kg GENERAL revealed 39-year-old white male, intubated, mechanically ventilated, given Nimbex during my evaluation. HEENT: Pupils are round and equally reacting to light. EOMI. No scleral icterus. No conjunctival pallor. Normocephalic, atraumatic. No pharyngeal erythema. No thyromegaly. CARDIOVASCULAR: Tachycardic, normal S1 and S2 present. No murmurs, rubs, or gallops. PULMONARY: Diminished breath sound bilaterally no rhonchi no wheezes ABDOMEN: Postsurgical defect abdomen, ileostomy noted. MUSCULOSKELETAL: No deformities EXTREMITIES: no clubbing edema or cyanosis. Diminished distal pulses NEUROLOGICAL sedated, could not assess. SKIN: No rashes, multiple tattoos noted. Results - Laboratory Findings CBC and BMP: 09/22/24 13:10 09/22/24 13:10 ABG ABG pH 7.24 (7.35-7.45) L 09/22/24 13:11 ABG pCO2 48 mmHg (35-45) H 09/22/24 13:11 ABG pO2 279 mmHg (83-108) H 09/22/24 13:11 ABG O2 Saturation 98.5 % (94-97) H 09/22/24 13:11 PT/INR, D-dimer PT 15.3 sec (10.0-12.5) H 09/22/24 11:47 INR 1.5 (<1.2) H 09/22/24 11:47 Abnormal lab findings: Abnormal Labs 09/21/24 09/21/24 09/21/24 23:50 23:50 23:50 WBC 15.72 H RBC 3.79 L Hgb 12.4 L Hct 36.8 L MCV 97.1 H MCH 32.7 H Plt Count 498 H MPV Immature Gran # 0.06 H Neutrophils # 10.41 H Monocytes # 1.24 H Eosinophils # Basophils # 0.11 H PT INR ABG pH ABG pCO2 ABG pO2 ABG HCO3 ABG Total CO2 ABG O2 Saturation Hemoglobin Potassium Chloride Carbon Dioxide 20 L Glucose 108 H POC Glucose (mg/dL) Plasma Lactic Acid Juan J 2.4 H* Calcium ALT 56 H Alkaline Phosphatase 147 H Total Protein Albumin Crossmatch 09/22/24 09/22/24 09/22/24 08:28 09:24 11:47 WBC RBC Hgb Hct MCV MCH Plt Count MPV Immature Gran # Neutrophils # Monocytes # Eosinophils # Basophils # PT INR ABG pH 7.15 L* ABG pCO2 ABG pO2 249 H ABG HCO3 14 L ABG Total CO2 15 L ABG O2 Saturation 97.7 H Hemoglobin Potassium Chloride Carbon Dioxide Glucose POC Glucose (mg/dL) 255 H Plasma Lactic Acid Juan J Calcium ALT Alkaline Phosphatase Total Protein Albumin Crossmatch See Detail 09/22/24 09/22/24 09/22/24 11:47 11:47 13:01 WBC RBC Hgb Hct MCV MCH Plt Count MPV Immature Gran # Neutrophils # Monocytes # Eosinophils # Basophils # PT 15.3 H INR 1.5 H ABG pH ABG pCO2 ABG pO2 ABG HCO3 ABG Total CO2 ABG O2 Saturation Hemoglobin Potassium 3.4 L Chloride 114 H Carbon Dioxide 12 L Glucose 233 H POC Glucose (mg/dL) 181 H Plasma Lactic Acid Juan J Calcium 7.7 L ALT Alkaline Phosphatase Total Protein 4.7 L Albumin 2.7 L Crossmatch 09/22/24 09/22/24 09/22/24 13:10 13:10 13:11 WBC 13.48 H RBC 2.97 L Hgb 9.5 L D Hct 28.6 L MCV MCH Plt Count MPV 8.9 L Immature Gran # Neutrophils # 11.33 H Monocytes # 1.04 H Eosinophils # 0.00 L Basophils # PT INR ABG pH 7.24 L ABG pCO2 48 H ABG pO2 279 H ABG HCO3 20 L ABG Total CO2 ABG O2 Saturation 98.5 H Hemoglobin 9.8 L Potassium Chloride 114 H Carbon Dioxide 20 L Glucose 178 H POC Glucose (mg/dL) Plasma Lactic Acid Juan J Calcium 8.1 L ALT Alkaline Phosphatase Total Protein Albumin Crossmatch - Diagnostic Findings Chest x-ray: image reviewed (Chest x-ray reviewed no evidence of active disease. Endotracheal tube in proper position nasogastric tube in proper position and ri ght IJ central line is also in the proper position.) Assessment and Plan Assessment: Impression: Status post exploratory laparotomy, decompression of small bowel, ileocolonic anastomotic resection and ileostomy. Postoperative #0 Severe hypotension secondary to hypovolemia and possible abdominal sepsis/septic shock. Acute small bowel obstruction, status post bowel resection and ileostomy History of Crohn's disease Recommendation: Continue ventilatory support Continue hemodynamic support/pressors including norepinephrine, epinephrine, and vasopressin Continue IV fluids, and blood products and albumin GI and DVT prophylaxis Antibiotics/broad-spectrum for presumptive abdominal sepsis Will address nutritional support in the next 24 hours may need to be on TPN Continue to monitor in the ICU Patient is critically ill prognosis is poor and guarded We will continue to follow Critical care time is over 55 minutes Time with Patient: Greater than 30
[2024-09-22] MEDS: LACTATED RINGERS 1,000 ML BAG IV STA ×2 (15:05→17:02)
[2024-09-22] MEDS: PIPERACILLIN-TAZOBACTAM 3.375 GM in SODIUM CHLORIDE 0.9% 100 ML IVPB SCH (15:18)
--- NOTE | 2024-09-22 15:24 | OP ---
OPERATIVE REPORT DATE OF SERVICE : OPERATIVE PROCEDURE: Placement of femoral triple-lumen catheter. PREOPERATIVE DIAGNOSES: 1. Profound hypotension. 2. Ischemic bowel. 3. Small-bowel obstruction. POSTOPERATIVE DIAGNOSES: 1. Profound hypotension. 2. Ischemic bowel. 3. Small-bowel obstruction. ANESTHESIA USED: None deployed. DESCRIPTION OF PROCEDURE: The right groin was prepared in a sterile fashion. Drapes were applied. The right femoral vein was easily cannulated, and a guidewire was placed. Area around the guidewire was dilated. The triple-lumen catheter was inserted over the guidewire, and the guidewire was removed. Good blood flow was noted in the 3 different ports of the triple-lumen catheter. Line was secured using 3.0 silk suture. No complications. MMODL / IJN: [id number] /
[2024-09-22] MEDS: CISATRACURIUM 200 MG in SODIUM CHLORIDE 0.9% 180 ML IV SCH (15:29)
[2024-09-22] MEDS: HYDROCORTISONE SUCCINATE 100 MG/2 ML VIAL IV SCH (15:41)
[2024-09-22 15:49] LABS: Glucose,Whole Blood 233 mg/dL (70-110)
[2024-09-22] MEDS ORDERED: DEXTROSE 50% SYRINGE 50 ML IVP PRN ×2 (15:50)
[2024-09-22] MEDS: INSULIN LISPRO (HumaLOG) 100 UNIT/ML 10 mL VL SQ SCH (16:28)
[2024-09-22 16:38] LABS: Appearance,Urine Cloudy (Clear); Bacteria,Urine Rare /hpf; Bilirubin,Urine Negative (Negative); Blood,Urine Moderate (Negative); Color,Urine Yellow; Glucose,Urine (UA) Trace (Negative); Hyaline Casts,Urine 50 /lpf (0-2); Ketones,Urine Negative (Negative); Leukocyte Esterase,Urine Negative (Negative); Mucus,Urine Rare /hpf; Nitrite,Urine Negative (Negative); PH, Urine 5.5 (5.0-8.0); Protein,Urine 1+ (Negative); RBC,Urine 12 /hpf (0-5); Specific Gravity,Urine 1.038 (1.001-1.035); Squamous Epithelial Cell,Urine 1 /hpf (0-4); Urobilinogen,Urine <2.0 mg/dL (<2.0); WBC,Urine 14 /hpf (0-5)
[2024-09-22] MEDS: ALBUMIN HUMAN 5% IVPB ONE (17:07)
--- NOTE | 2024-09-22 17:57 | P.ANPRN ---
Procedure Note - Anesthesia - Invasive Line Right Central Line Time Out Performed: Yes Date of Procedure: 09/22/24 Time of Procedure: 10:15 Location of Patient: PreOp Preparation: Sterile Prep, Sterile Dressing Central Line Location: Internal Jugular Ultrasound Used: No Purpose - Visualization and Identification of Vasculature: No Image Stored and Saved: No Narrative: Invasive line placement per sterile protocol utilized.
--- NOTE | 2024-09-22 17:57 | P.ANPRN ---
Procedure Note - Anesthesia - Invasive Line Left Arterial Line Time Out Performed: Yes Date of Procedure: 09/22/24 Time of Procedure: 11:09 Location of Patient: OR Preparation: Sterile Prep, Sterile Dressing Arterial Line Location: Briachial Ultrasound Used: No Purpose - Visualization and Identification of Vasculature: No Image Stored and Saved: No Narrative: Invasive line placement per sterile protocol utilized.
[2024-09-22 18:47] LABS: HCT 32.9 % (39.6-50.0); HGB 11.3 g/dL (13.0-17.0); MCHC 34.3 g/dL (32.0-37.0); Mean Platelet Volume 9.3 fL (9.5-12.2); Platelet Count 185 10*3/uL (140-440); RBC 3.64 10*6/uL (4.40-5.60); RDW 18.5 % (11.5-14.5); WBC 4.82 10*3/uL (4.50-10.00)
[2024-09-22 19:11] LABS: ALT 24 U/L (4-49); AST 64 U/L (17-59); African American GFR (CKD) >90 (>60 ml/min/1.73 sqM); Albumin 1.8 g/dL (3.5-5.0); Alkaline Phosphatase 37 U/L (38-126); Anion Gap 8 mmol/L; Blood Urea Nitrogen 20 mg/dL (9-20); Calcium 6.7 mg/dL (8.4-10.2); Carbon Dioxide 21 mmol/L (22-30); Chloride 114 mmol/L (98-107); Glucose 218 mg/dL (74-99); Non-African American GFR(CKD) >90 (>60 ml/min/1.73 sqM); Potassium 3.9 mmol/L (3.5-5.1); Sodium 143 mmol/L (137-145); Total Bilirubin 1.7 mg/dL (0.2-1.3); Total Protein 3.3 g/dL (6.3-8.2)
[2024-09-22 19:13] LABS: MCV 90.4 fL (80.0-97.0)
[2024-09-22 20:04] LABS: Glucose,Whole Blood 244 mg/dL (70-110)
[2024-09-22] MEDS: fentaNYL (PF). 1,000 MCG in SODIUM CHLORIDE 0.9% 80 ML IV SCH (20:45)
[2024-09-22] MEDS: CHLORHEXIDINE GLUCONATE 15 ML CUP MUCOUS MEM SCH (21:01)
[2024-09-22 22:47] LABS: HCT 31.4 % (39.6-50.0); MCH 31.4 pg (27.0-32.0); MCV 89.7 fL (80.0-97.0); Platelet Count 185 10*3/uL (140-440); RDW 18.7 % (11.5-14.5); WBC 5.11 10*3/uL (4.50-10.00)
[2024-09-22 23:35] LABS: ABG HCO3 22 mmol/L (21-25); ABG Oxygen Saturation 99.1 % (94-97); ABG PCO2 35 mmHg (35-45); ABG PH 7.39 (7.35-7.45); ABG PO2 256 mmHg (83-108); ABG TCO2 23 mmol/L (19-24)
[2024-09-22 23:42] LABS: Allen Test Performed? No
[2024-09-22] MEDS: HYDROmorphone 1 MG/ML 1 ML SYRINGE IVP PRN (23:42)
[2024-09-23] MEDS: LACTATED RINGERS 1,000 ML IV ONE (00:17)
[2024-09-23 00:26] LABS: Glucose,Whole Blood 232 mg/dL (70-110)
[2024-09-23 02:14] LABS: Band Neutrophils % 1 %; Metamyelocytes # (M) 0.05 k/uL (0); Metamyelocytes % 1 %; Monocytes # (M) 0.46 k/uL (0-1.0); Neutrophils # (M) 2.45 k/uL (1.3-7.7); Neutrophils % (M) 47 %; Nucleated Red Blood Cells 0 /100 WBC (0-0); Total Cells Counted 200
[2024-09-23 02:15] LABS: RBC Morphology Normal
[2024-09-23 03:24] LABS: HCT 29.8 % (39.6-50.0); HGB 10.2 g/dL (13.0-17.0); MCHC 34.2 g/dL (32.0-37.0); MCV 90.6 fL (80.0-97.0); Mean Platelet Volume 10.5 fL (9.5-12.2); Platelet Count 179 10*3/uL (140-440); RBC 3.29 10*6/uL (4.40-5.60); WBC 6.11 10*3/uL (4.50-10.00)
[2024-09-23 04:16] LABS: Glucose,Whole Blood 179 mg/dL (70-110)
[2024-09-23 04:29] LABS: Band Neutrophils % 4 %; Lymphocytes # (M) 1.49 k/uL (1.0-4.8); Metamyelocytes # (M) 0.19 k/uL (0); Metamyelocytes % 4 %; Monocytes # (M) 0.19 k/uL (0-1.0); Neutrophils # (M) 2.98 k/uL (1.3-7.7); Neutrophils % (M) 58 %; Nucleated Red Blood Cells 0 /100 WBC (0-0); Total Cells Counted 200
[2024-09-23 04:30] LABS: RBC Morphology Normal
[2024-09-23 05:22] LABS: African American GFR (CKD) >90 (>60 ml/min/1.73 sqM); Anion Gap 4 mmol/L; Blood Urea Nitrogen 22 mg/dL (9-20); Carbon Dioxide 25 mmol/L (22-30); Chloride 109 mmol/L (98-107); Glucose 159 mg/dL (74-99); Magnesium 1.1 mg/dL (1.6-2.3); Non-African American GFR(CKD) >90 (>60 ml/min/1.73 sqM); Potassium 4.1 mmol/L (3.5-5.1); Sodium 138 mmol/L (137-145)
[2024-09-23 05:24] LABS: Band Neutrophils % 2 %; Lymphocytes # (M) 1.77 k/uL (1.0-4.8); Metamyelocytes # (M) 0.12 k/uL (0); Metamyelocytes % 2 %; Monocytes # (M) 0.61 k/uL (0-1.0); Neutrophils # (M) 3.72 k/uL (1.3-7.7); Neutrophils % (M) 59 %; Nucleated Red Blood Cells 1 /100 WBC (0-0); Total Cells Counted 200
[2024-09-23 05:25] LABS: Mixed Population RBC Present
[2024-09-23 05:28] LABS: Calcium 6.1 mg/dL (8.4-10.2)
[2024-09-23 05:29] LABS: ABG Base Excess -2.9 mmol/L; ABG HCO3 24 mmol/L (21-25); ABG Oxygen Saturation 97.8 % (94-97); ABG PCO2 50 mmHg (35-45); ABG PH 7.29 (7.35-7.45); ABG PO2 120 mmHg (83-108); ABG TCO2 26 mmol/L (19-24)
[2024-09-23] MEDS: MAGNESIUM SULFATE-D5W PMX 1 GM in DEXTROSE/WATER 1 100ML.BAG IVPB SCH (06:06)
[2024-09-23 06:11] LABS: Allen Test Performed? No
[2024-09-23] MEDS: CALCIUM GLUCONATE IN NACL 1 GM in SALINE 1 100ML.BAG IVPB ONE (06:50)
--- NOTE | 2024-09-23 07:34 | XR ---
EXAMINATION TYPE: XR chest 1V portable DATE OF EXAM: 09/23/2024 5:20 AM COMPARISON: 09/22/2024 CLINICAL INDICATION: Male, 39 years old with history of Tube placement, TECHNIQUE: XR chest 1V portable view(s) obtained. FINDINGS: The heart size is normal. The pulmonary vasculature is normal. Mild bibasilar infiltrates are present. Correlate for atelectasis. Endometrial tracheal tube tip is 4.5 cm. Nasogastric tube transverses the thorax. Right central venou s catheter tip is in the proximal right atrium. No pneumothorax evident. IMPRESSION: 1. Development Bibasilar infiltrates. Correlate for atelectasis. 2. Lines and catheters discussed above. [facility], , 09/23/2024 7:32 AM
[2024-09-23] MEDS: IPRATROPIUM-ALBUTEROL 3 ML NEB INHALATION SCH (07:50)
[2024-09-23 08:01] LABS: Glucose,Whole Blood 204 mg/dL (70-110)
[2024-09-23] MEDS ORDERED: ACETAMINOPHEN IV (For NPO) 1,000 MG in EMPTY BAG 1 BAG IVPB PRN (09:15)
[2024-09-23 10:54] LABS: HCT 30.3 % (39.6-50.0); HGB 10.3 g/dL (13.0-17.0); MCH 31.2 pg (27.0-32.0); MCV 91.8 fL (80.0-97.0); Mean Platelet Volume 10.6 fL (9.5-12.2); Platelet Count 160 10*3/uL (140-440); WBC 11.37 10*3/uL (4.50-10.00)
--- NOTE | 2024-09-23 11:11 | P.PN ---
Subjective Progress Note Date: 09/23/24 SURGICAL PROGRESS NOTE CHIEF COMPLAINT: Ischemic bowel HISTORY OF PRESENT ILLNESS: Patient is postop day #1 status post exploratory laparotomy, decompression of small bowel, ileocolonic anastomotic resection and ileostomy. Patient remains in the ICU intubated and on mechanical ventilation. He is on blood pressure support with levo, vaso and epinephrine. Patient is receiving large amount of fluids including bicarb and normal saline. He did receive 4 units of blood yesterday. Patient remains tachycardic. Low-grade temp of 100.4. WBC 6.11 Hgb stable at 10.3 lactic acid 2.9. Magnesium 1.1 NG t ube with 180 mL output PHYSICAL EXAM: VITAL SIGNS: Reviewed. GENERAL: no acute distress. HEENT: No sclera icterus. Extraocular movements grossly intact. Moist buccal mucosa. Head is atraumatic, normocephalic. ABDOMEN: Distended. Incision site clean dry and intact. Ileostomy on the right stoma is dark. Bloody drainage noted in the ostomy bag. NEUROLOGIC: Intubated and sedated ASSESSMENT: 1. Chronic massive small bowel obstruction with small bowel dilated to 15 cm 2. Internal hernia with rotation of midgut 3. Possible Crohn's stricture of ileocolonic anastomosis PLAN: - Continue ICU management - Continue supportive care - Continue IV fluids - Keep patient n.p.o. - Magnesium being replaced - Continue to monitor stoma - Continue to monitor closely Physician Sales Assistant note has been reviewed by physician. Signing provider agrees with the documented findings, assessment, and plan of care. Objective - Vital Signs Vital signs: Vital Signs Temp 100.0 F H 09/23/24 08:00 Pulse 140 H 09/23/24 10:45 Resp 20 09/23/24 10:45 BP 99/59 09/23/24 10:45 Pulse Ox 96 09/23/24 10:45 FiO2 40 09/23/24 08:00 Intake & Output 09/22/24 09/23/24 09/23/24 18:59 06:59 18:59 Intake Total 7457.169 5504.770 1704.450 Output Total 630 2970 505 Balance 6827.169 2534.770 1199.450 Weight 74.6 kg Intake: IV 3268 3426 858 Dextrose 5% in Water 1, 600 1800 450 000 ml @ 150 mls/hr IV . Q7H40M [facility] with Sodium Bicarb (1 Meq/ml) 150 ml Rx#:[id number] Magnesium Sulfate-D5w Pmx 100 1 gm In Dextrose/Water 1 100ml.bag @ 100 mls/hr IVPB ONCE ONE Rx#: [id number] Potassium Chloride 20 meq 100 In Water For Injection 1 100ml.bag @ 50 mls/hr IVPB Q2H [facility] Rx#: [id number] Pressure bag 18 66 18 Sodium Chloride 0.9% 1, 650 1560 390 000 ml @ 130 mls/hr IV . Q7H42M [facility] Rx#:[id number] Intake, IV Titration 3053.169 2078.770 846.450 Amount Albumin Human 5% 250 ml 500 In Empty Bag 2 bag @ 250 mls/hr IVPB ONCE ONE Rx#: [id number] Cisatracurium 200 mg In 9.842 2.413 Sodium Chloride 0.9% 180 ml @ 1 MCG/KG/MIN 3.81 mls/hr IV .Q24H [facility] Rx#: [id number] EPINEPHrine 4 mg In 51.040 213.330 218.726 Dextrose 5% in Water 250 ml @ 0.03 MCG/KG/MIN 7. 144 mls/hr IV .Q24H [facility] Rx#:[id number] Lactated Ringers 1,000 ml 1000 @ 0 mls/hr IV .STK-MED ONE Rx#:[id number] Lactated Ringers 1,000 ml 1000 @ 0 mls/hr IV .STK-MED ONE Rx#:[id number] Lactated Ringers 1,000 ml 1000 @ 999 mls/hr IV .Q1H1M ONE Rx#:[id number] Magnesium Sulfate-D5w Pmx 200 1 gm In Dextrose/Water 1 100ml.bag @ 100 mls/hr IVPB Q1H [facility] Rx#: [id number] Norepinephrine 8 mg In 369.045 760.528 258.000 Sodium Chloride 0.9% 250 ml @ 0.03 MCG/KG/MIN 3. 686 mls/hr IV .Q24H [facility] Rx#:[id number] Piperacillin-Tazobactam 3 100 .375 gm In Sodium Chloride 0.9% 100 ml @ 25 mls/hr IVPB Q8HR [facility] Rx# :[id number] Vasopressin 60 unit In 27.693 90.984 Sodium Chloride 0.9% 150 ml @ 0.03 UNITS/MIN 4.59 mls/hr IV .Q24H [facility] Rx#: [id number] fentaNYL (PF). 1,000 mcg 2.381 78.74 In Sodium Chloride 0.9% 80 ml @ 0.5 MCG/KG/HR 3. 175 mls/hr IV .Q24H [facility] Rx#:[id number] propofoL 1,000 mg In 23.242 72.425 Empty Bag 1 bag @ 15 MCG/ KG/MIN 5.715 mls/hr IV . [id number] [facility] Rx#:[id number] Blood Product 1136 Rc Pheresis 2 As3 Unit 295 [id number] Rc Pheresis 2 As3 Unit 280 [id number] Rc Pheresis 2 As3 Unit 282 [id number] Rc Pheresis As-3 Unit 279 [id number] Output: Gastric Drainage 80 100 Urine 290 320 105 Stool 2550 400 Oral Regurgitation 100 Estimated Blood Loss 160 Other: Voiding Method Indwelling Catheter Indwelling Catheter ABP, PAP, CO, CI - Last Documented Arterial Blood Pressure 94/48 - Labs CBC & Chem 7: 09/23/24 10:24 09/23/24 04:11 Labs: Abnormal Lab Results - Last 24 Hours (Table) 09/22/24 09/22/24 09/22/24 Range/Units 09:24 11:47 11:47 WBC (4.50-10.00) 10*3/uL RBC (4.40-5.60) 10*6/uL Hgb (13.0-17.0) g/dL Hct (39.6-50.0) % MPV (9.5-12.2) fL Immature Gran # (0.00-0.04) 10*3/uL Neutrophils # (1.80-7.70) 10*3/uL Monocytes # (0.20-1.00) 10*3/uL Eosinophils # (0.04-0.35) 10*3/uL Metamyelocytes # (Man) (0) k/uL Nucleated RBCs (0-0) /100 WBC PT 15.3 H (10.0-12.5) sec INR 1.5 H (<1.2) ABG pH 7.15 L* (7.35-7.45) ABG pCO2 (35-45) mmHg ABG pO2 249 H (83-108) mmHg ABG HCO3 14 L (21-25) mmol/L ABG Total CO2 15 L (19-24) mmol/L ABG O2 Saturation 97.7 H (94-97) % ABG Lactic Acid (0.5-1.6) mmol/L Hemoglobin (13.0-17.5) gm/dL Potassium (3.5-5.1) mmol/L Chloride (98-107) mmol/L Carbon Dioxide (22-30) mmol/L BUN (9-20) mg/dL Glucose (74-99) mg/dL POC Glucose (mg/dL) (70-110) mg/dL Plasma Lactic Acid Juan J (0.7-2.0) mmol/L Calcium (8.4-10.2) mg/dL Ionized Calcium Carolyn (4.5-5.3) mg/dL Magnesium (1.6-2.3) mg/dL Total Bilirubin (0.2-1.3) mg/dL AST (17-59) U/L Alkaline Phosphatase (38-126) U/L Total Protein (6.3-8.2) g/dL Albumin (3.5-5.0) g/dL Ur Specific [place] (1.001-1.035) Urine Protein (Negative) Urine Glucose (UA) (Negative) Urine Blood (Negative) Urine RBC (0-5) /hpf Urine WBC (0-5) /hpf Urine WBC Clumps (None) /hpf Urine Bacteria (None) /hpf Hyaline Casts (0-2) /lpf Urine Mucus (None) /hpf Crossmatch See Detail 09/22/24 09/22/24 09/22/24 Range/Units 11:47 13:01 13:10 WBC 13.48 H (4.50-10.00) 10*3/uL RBC 2.97 L (4.40-5.60) 10*6/uL Hgb 9.5 L D (13.0-17.0) g/dL Hct 28.6 L (39.6-50.0) % MPV 8.9 L (9.5-12.2) fL Immature Gran # (0.00-0.04) 10*3/uL Neutrophils # 11.33 H (1.80-7.70) 10*3/uL Monocytes # 1.04 H (0.20-1.00) 10*3/uL Eosinophils # 0.00 L (0.04-0.35) 10*3/uL Metamyelocytes # (Man) (0) k/uL Nucleated RBCs (0-0) /100 WBC PT (10.0-12.5) sec INR (<1.2) ABG pH (7.35-7.45) ABG pCO2 (35-45) mmHg ABG pO2 (83-108) mmHg ABG HCO3 (21-25) mmol/L ABG Total CO2 (19-24) mmol/L ABG O2 Saturation (94-97) % ABG Lactic Acid (0.5-1.6) mmol/L Hemoglobin (13.0-17.5) gm/dL Potassium 3.4 L (3.5-5.1) mmol/L Chloride 114 H (98-107) mmol/L Carbon Dioxide 12 L (22-30) mmol/L BUN (9-20) mg/dL Glucose 233 H (74-99) mg/dL POC Glucose (mg/dL) 181 H (70-110) mg/dL Plasma Lactic Acid Juan J (0.7-2.0) mmol/L Calcium 7.7 L (8.4-10.2) mg/dL Ionized Calcium Carolyn (4.5-5.3) mg/dL Magnesium (1.6-2.3) mg/dL Total Bilirubin (0.2-1.3) mg/dL AST (17-59) U/L Alkaline Phosphatase (38-126) U/L Total Protein 4.7 L (6.3-8.2) g/dL Albumin 2.7 L (3.5-5.0) g/dL Ur Specific [place] (1.001-1.035) Urine Protein (Negative) Urine Glucose (UA) (Negative) Urine Blood (Negative) Urine RBC (0-5) /hpf Urine WBC (0-5) /hpf Urine WBC Clumps (None) /hpf Urine Bacteria (None) /hpf Hyaline Casts (0-2) /lpf Urine Mucus (None) /hpf Crossmatch 06/15/25 06/15/25 06/15/25 Range/Units 13:10 13:11 15:47 WBC (4.50-10.00) 10*3/uL RBC (4.40-5.60) 10*6/uL Hgb (13.0-17.0) g/dL Hct (39.6-50.0) % MPV (9.5-12.2) fL Immature Gran # (0.00-0.04) 10*3/uL Neutrophils # (1.80-7.70) 10*3/uL Monocytes # (0.20-1.00) 10*3/uL Eosinophils # (0.04-0.35) 10*3/uL Metamyelocytes # (Man) (0) k/uL Nucleated RBCs (0-0) /100 WBC PT (10.0-12.5) sec INR (<1.2) ABG pH 7.24 L (7.35-7.45) ABG pCO2 48 H (35-45) mmHg ABG pO2 279 H (83-108) mmHg ABG HCO3 20 L (21-25) mmol/L ABG Total CO2 (19-24) mmol/L ABG O2 Saturation 98.5 H (94-97) % ABG Lactic Acid (0.5-1.6) mmol/L Hemoglobin 9.8 L (13.0-17.5) gm/dL Potassium (3.5-5.1) mmol/L Chloride 114 H (98-107) mmol/L Carbon Dioxide 20 L (22-30) mmol/L BUN (9-20) mg/dL Glucose 178 H (74-99) mg/dL POC Glucose (mg/dL) 233 H (70-110) mg/dL Plasma Lactic Acid Juan J (0.7-2.0) mmol/L Calcium 8.1 L (8.4-10.2) mg/dL Ionized Calcium Carolyn (4.5-5.3) mg/dL Magnesium (1.6-2.3) mg/dL Total Bilirubin (0.2-1.3) mg/dL AST (17-59) U/L Alkaline Phosphatase (38-126) U/L Total Protein (6.3-8.2) g/dL Albumin (3.5-5.0) g/dL Ur Specific [place] (1.001-1.035) Urine Protein (Negative) Urine Glucose (UA) (Negative) Urine Blood (Negative) Urine RBC (0-5) /hpf Urine WBC (0-5) /hpf Urine WBC Clumps (None) /hpf Urine Bacteria (None) /hpf Hyaline Casts (0-2) /lpf Urine Mucus (None) /hpf Crossmatch 09/22/24 09/22/24 09/22/24 Range/Units 16:02 18:30 18:30 WBC (4.50-10.00) 10*3/uL RBC 3.64 L (4.40-5.60) 10*6/uL Hgb 11.3 L (13.0-17.0) g/dL Hct 32.9 L (39.6-50.0) % MPV 9.3 L (9.5-12.2) fL Immature Gran # (0.00-0.04) 10*3/uL Neutrophils # (1.80-7.70) 10*3/uL Monocytes # (0.20-1.00) 10*3/uL Eosinophils # (0.04-0.35) 10*3/uL Metamyelocytes # (Man) 0.19 H (0) k/uL Nucleated RBCs (0-0) /100 WBC PT (10.0-12.5) sec INR (<1.2) ABG pH (7.35-7.45) ABG pCO2 (35-45) mmHg ABG pO2 (83-108) mmHg ABG HCO3 (21-25) mmol/L ABG Total CO2 (19-24) mmol/L ABG O2 Saturation (94-97) % ABG Lactic Acid (0.5-1.6) mmol/L Hemoglobin (13.0-17.5) gm/dL Potassium (3.5-5.1) mmol/L Chloride 114 H (98-107) mmol/L Carbon Dioxide 21 L (22-30) mmol/L BUN (9-20) mg/dL Glucose 218 H (74-99) mg/dL POC Glucose (mg/dL) (70-110) mg/dL Plasma Lactic Acid Juan J (0.7-2.0) mmol/L Calcium 6.7 L (8.4-10.2) mg/dL Ionized Calcium Carolyn (4.5-5.3) mg/dL Magnesium (1.6-2.3) mg/dL Total Bilirubin 1.7 H (0.2-1.3) mg/dL AST 64 H (17-59) U/L Alkaline Phosphatase 37 L (38-126) U/L Total Protein 3.3 L (6.3-8.2) g/dL Albumin 1.8 L (3.5-5.0) g/dL Ur Specific [place] 1.038 H (1.001-1.035) Urine Protein 1+ H (Negative) Urine Glucose (UA) Trace H (Negative) Urine Blood Moderate H (Negative) Urine RBC 12 H (0-5) /hpf Urine WBC 14 H (0-5) /hpf Urine WBC Clumps Rare H (None) /hpf Urine Bacteria Rare H (None) /hpf Hyaline Casts 50 H (0-2) /lpf Urine Mucus Rare H (None) /hpf Crossmatch 09/22/24 09/22/24 09/22/24 Range/Units 20:03 22:35 23:31 WBC (4.50-10.00) 10*3/uL RBC 3.50 L (4.40-5.60) 10*6/uL Hgb 11.0 L (13.0-17.0) g/dL Hct 31.4 L (39.6-50.0) % MPV (9.5-12.2) fL Immature Gran # (0.00-0.04) 10*3/uL Neutrophils # (1.80-7.70) 10*3/uL Monocytes # (0.20-1.00) 10*3/uL Eosinophils # (0.04-0.35) 10*3/uL Metamyelocytes # (Man) 0.05 H (0) k/uL Nucleated RBCs (0-0) /100 WBC PT (10.0-12.5) sec INR (<1.2) ABG pH (7.35-7.45) ABG pCO2 (35-45) mmHg ABG pO2 256 H (83-108) mmHg ABG HCO3 (21-25) mmol/L ABG Total CO2 (19-24) mmol/L ABG O2 Saturation 99.1 H (94-97) % ABG Lactic Acid (0.5-1.6) mmol/L Hemoglobin 11.5 L (13.0-17.5) gm/dL Potassium (3.5-5.1) mmol/L Chloride (98-107) mmol/L Carbon Dioxide (22-30) mmol/L BUN (9-20) mg/dL Glucose (74-99) mg/dL POC Glucose (mg/dL) 244 H (70-110) mg/dL Plasma Lactic Acid Juan J (0.7-2.0) mmol/L Calcium (8.4-10.2) mg/dL Ionized Calcium Carolyn (4.5-5.3) mg/dL Magnesium (1.6-2.3) mg/dL Total Bilirubin (0.2-1.3) mg/dL AST (17-59) U/L Alkaline Phosphatase (38-126) U/L Total Protein (6.3-8.2) g/dL Albumin (3.5-5.0) g/dL Ur Specific [place] (1.001-1.035) Urine Protein (Negative) Urine Glucose (UA) (Negative) Urine Blood (Negative) Urine RBC (0-5) /hpf Urine WBC (0-5) /hpf Urine WBC Clumps (None) /hpf Urine Bacteria (None) /hpf Hyaline Casts (0-2) /lpf Urine Mucus (None) /hpf Crossmatch 09/23/24 09/23/24 09/23/24 Range/Units 00:24 03:00 03:15 WBC (4.50-10.00) 10*3/uL RBC 3.29 L (4.40-5.60) 10*6/uL Hgb 10.2 L (13.0-17.0) g/dL Hct 29.8 L (39.6-50.0) % MPV (9.5-12.2) fL Immature Gran # (0.00-0.04) 10*3/uL Neutrophils # (1.80-7.70) 10*3/uL Monocytes # (0.20-1.00) 10*3/uL Eosinophils # (0.04-0.35) 10*3/uL Metamyelocytes # (Man) 0.12 H (0) k/uL Nucleated RBCs 1 H (0-0) /100 WBC PT (10.0-12.5) sec INR (<1.2) ABG pH (7.35-7.45) ABG pCO2 (35-45) mmHg ABG pO2 (83-108) mmHg ABG HCO3 (21-25) mmol/L ABG Total CO2 (19-24) mmol/L ABG O2 Saturation (94-97) % ABG Lactic Acid 2.7 H* (0.5-1.6) mmol/L Hemoglobin (13.0-17.5) gm/dL Potassium (3.5-5.1) mmol/L Chloride (98-107) mmol/L Carbon Dioxide (22-30) mmol/L BUN (9-20) mg/dL Glucose (74-99) mg/dL POC Glucose (mg/dL) 232 H (70-110) mg/dL Plasma Lactic Acid Juan J (0.7-2.0) mmol/L Calcium (8.4-10.2) mg/dL Ionized Calcium Carolyn (4.5-5.3) mg/dL Magnesium (1.6-2.3) mg/dL Total Bilirubin (0.2-1.3) mg/dL AST (17-59) U/L Alkaline Phosphatase (38-126) U/L Total Protein (6.3-8.2) g/dL Albumin (3.5-5.0) g/dL Ur Specific [place] (1.001-1.035) Urine Protein (Negative) Urine Glucose (UA) (Negative) Urine Blood (Negative) Urine RBC (0-5) /hpf Urine WBC (0-5) /hpf Urine WBC Clumps (None) /hpf Urine Bacteria (None) /hpf Hyaline Casts (0-2) /lpf Urine Mucus (None) /hpf Crossmatch 09/23/24 09/23/24 09/23/24 Range/Units 04:11 04:15 05:34 WBC (4.50-10.00) 10*3/uL RBC (4.40-5.60) 10*6/uL Hgb (13.0-17.0) g/dL Hct (39.6-50.0) % MPV (9.5-12.2) fL Immature Gran # (0.00-0.04) 10*3/uL Neutrophils # (1.80-7.70) 10*3/uL Monocytes # (0.20-1.00) 10*3/uL Eosinophils # (0.04-0.35) 10*3/uL Metamyelocytes # (Man) (0) k/uL Nucleated RBCs (0-0) /100 WBC PT (10.0-12.5) sec INR (<1.2) ABG pH (7.35-7.45) ABG pCO2 (35-45) mmHg ABG pO2 (83-108) mmHg ABG HCO3 (21-25) mmol/L ABG Total CO2 (19-24) mmol/L ABG O2 Saturation (94-97) % ABG Lactic Acid (0.5-1.6) mmol/L Hemoglobin (13.0-17.5) gm/dL Potassium (3.5-5.1) mmol/L Chloride 109 H (98-107) mmol/L Carbon Dioxide (22-30) mmol/L BUN 22 H (9-20) mg/dL Glucose 159 H (74-99) mg/dL POC Glucose (mg/dL) 179 H (70-110) mg/dL Plasma Lactic Acid Juan J (0.7-2.0) mmol/L Calcium 6.1 L* (8.4-10.2) mg/dL Ionized Calcium Carolyn 3.9 L (4.5-5.3) mg/dL Magnesium 1.1 L (1.6-2.3) mg/dL Total Bilirubin (0.2-1.3) mg/dL AST (17-59) U/L Alkaline Phosphatase (38-126) U/L Total Protein (6.3-8.2) g/dL Albumin (3.5-5.0) g/dL Ur Specific [place] (1.001-1.035) Urine Protein (Negative) Urine Glucose (UA) (Negative) Urine Blood (Negative) Urine RBC (0-5) /hpf Urine WBC (0-5) /hpf Urine WBC Clumps (None) /hpf Urine Bacteria (None) /hpf Hyaline Casts (0-2) /lpf Urine Mucus (None) /hpf Crossmatch 09/23/24 09/23/24 09/23/24 Range/Units 07:55 07:55 10:24 WBC 11.37 H (4.50-10.00) 10*3/uL RBC 3.30 L (4.40-5.60) 10*6/uL Hgb 10.3 L (13.0-17.0) g/dL Hct 30.3 L (39.6-50.0) % MPV (9.5-12.2) fL Immature Gran # 0.08 H (0.00-0.04) 10*3/uL Neutrophils # (1.80-7.70) 10*3/uL Monocytes # (0.20-1.00) 10*3/uL Eosinophils # (0.04-0.35) 10*3/uL Metamyelocytes # (Man) (0) k/uL Nucleated RBCs (0-0) /100 WBC PT (10.0-12.5) sec INR (<1.2) ABG pH (7.35-7.45) ABG pCO2 (35-45) mmHg ABG pO2 (83-108) mmHg ABG HCO3 (21-25) mmol/L ABG Total CO2 (19-24) mmol/L ABG O2 Saturation (94-97) % ABG Lactic Acid (0.5-1.6) mmol/L Hemoglobin (13.0-17.5) gm/dL Potassium (3.5-5.1) mmol/L Chloride (98-107) mmol/L Carbon Dioxide (22-30) mmol/L BUN (9-20) mg/dL Glucose (74-99) mg/dL POC Glucose (mg/dL) 204 H (70-110) mg/dL Plasma Lactic Acid Juan J 2.9 H* (0.7-2.0) mmol/L Calcium (8.4-10.2) mg/dL Ionized Calcium Carolyn (4.5-5.3) mg/dL Magnesium (1.6-2.3) mg/dL Total Bilirubin (0.2-1.3) mg/dL AST (17-59) U/L Alkaline Phosphatase (38-126) U/L Total Protein (6.3-8.2) g/dL Albumin (3.5-5.0) g/dL Ur Specific [place] (1.001-1.035) Urine Protein (Negative) Urine Glucose (UA) (Negative) Urine Blood (Negative) Urine RBC (0-5) /hpf Urine WBC (0-5) /hpf Urine WBC Clumps (None) /hpf Urine Bacteria (None) /hpf Hyaline Casts (0-2) /lpf Urine Mucus (None) /hpf Crossmatch
[2024-09-23 12:03] LABS: Band Neutrophils % 3 %; Eosinophils # (M) 0.11 k/uL (0-0.7); Lymphocytes # (M) 1.71 k/uL (1.0-4.8); Metamyelocytes # (M) 0.11 k/uL (0); Metamyelocytes % 1 %; Monocytes # (M) 0.68 k/uL (0-1.0); Neutrophils # (M) 8.75 k/uL (1.3-7.7); Neutrophils % (M) 74 %; Nucleated Red Blood Cells 0 /100 WBC (0-0); Total Cells Counted 100
[2024-09-23 12:05] LABS: Glucose,Whole Blood 196 mg/dL (70-110)
[2024-09-23] MEDS: FLUDROCORTISONE 0.1 MG TAB PO SCH (13:28)
--- NOTE | 2024-09-23 14:07 | P.PN ---
Subjective Progress Note Date: 09/23/24 Principal diagnosis: Abdominal pain. This is a 39-year-old white male with history of Crohn's disease, presented to the ER with chronic massive small bowel obstruction with small bowel dilated up to 15 cm. Patient is known to have history of Crohn's strictures of ileocolonic anastomosis. Patient had to be taken to the operating room by surgery, underwent exploratory laparotomy decompression of small bowel, ileocolonic anastomotic resection, and ileostomy. Patient was found to have small bowel appeared dusky with massive dilatation, it was dilated up to 15 cm in diameter. It was difficult to assess the source of the obstruction hence the patient underwent enterotomy made in the small bowel and then the decompression of the small bowel was performed with suction. Apparently the patient had 7 L of fluid removed from the small bowel, enterotomy was then stapled with a BI stapler. Then the surgeon was able to visualize the small bowel obstruction, surgeon was able to visualize the site of his previous small bowel surgery and the site was noted to have ileotransverse colonic anastomosis. It was unsure if the area prior to the anastomosis was strictured down due to scar tissue or Crohn's disease. Small bowel was transected proximal to the stricture and then the colon was transected distal to the stricture then using the Enseal device the mesentery of the bowel was divided and steps of the pathology. Patient was also noted to have rotation of the small bowel and small bowel was rotated to relieve the torsion. Small bowel appeared viable then the patient underwent ileostomy which was brought up to the right lower quadrant. Patient was transferred to the ICU after surgery and he was quite hypotensive presently intubated mechanically ventilated hypotensive requiring maximal pressors patient is now on maximal norepinephrine at 0.6 mcg/kg/min receiving vasopressin at 0.04 units/min he is also receiving epinephrine being titrated. Patient is intubated and mechanically ventilated. On assist-control rate of 12 which was changed to 16 tidal volume was 500 FiO2 100% which was brought down to 60% and PEEP at 5. ABG showed a pO2 of 279 pCO2 48 pH of 7.24 patient is also receiving bicarb is also on a bicarb drip because prior ABG showed a pH of 7.15 with a PCO2 of 40. WBC count is 13.48 hemoglobin 9.5 platelets are 233. When I saw the patient in the ICU, apparently he needed more venous access according to the nurse taking care of the patient, although he does have a double-lumen catheter in the right IJ area. Went ahead and placed a triple-lumen catheter in the right femoral vein. Recommended more fluids, more blood to be given, and pressors to be titrated accordingly. The overall picture looks very grim, clinically the patient is quite ill, and remains hypotensive in spite of all these pressors. Progress note dated September 23, 2024. 39-year-old male with history of Crohn's disease, who presented to the emergency department, with massive small bowel obstruction, and small bowel dilated up to 15 cm. The patient is currently maintained in the intensive care unit, on the mechanical ventilator. He is on volume assist-control, rate 20, tidal volume 500, FiO2 40%, PEEP of 5. Blood gases from yesterday show pO2 of 256, pCO2 35, pH of 7.39. Today's blood gases on 45% show pO2 of 120, pCO2 of 50, pH of 7.29. He is postoperative day #1. He continues on multiple drips including Nimbex at 3 mcg/kg/min, saline at 130 cc an hour, D5W with 3 ampoules of sodium bicarbonate at 150 cc an hour, fentanyl at 1 mcg/kg/h, norepinephrine at 42 mcg/min, vasopressin at 0.04 units/min, epinephrine at 0.2 mcg/kg/min, propofol at 40 mcg/kg/min, and Zosyn. We will add Florinef, for better blood pressure support. Current laboratory data includes a white count 11.4, hemoglobin 10.3, hematocrit 30.3, platelet count 160,000. Sodium 138, potassium 4.1, chlorides 109, CO2 25, anion gap 4, BUN 22, creatinine 0.83. Glucose is 196. Lactic acid 2.9, calcium 6.1. TSH was normal. Cortisol levels pending. Culture studies are pending. Cultures are thus far negative. Chest x-ray shows bibasilar infiltrates, possible related to atelectasis. Objective - Vital Signs Vital signs: Vital Signs Temp 99.7 F H 09/23/24 12:00 Pulse 140 H 09/23/24 13:15 Resp 20 09/23/24 13:15 BP 101/60 09/23/24 13:15 Pulse Ox 95 09/23/24 13:15 FiO2 40 09/23/24 12:00 Intake & Output 09/22/24 09/23/24 09/23/24 18:59 06:59 18:59 Intake Total 7457.169 5504.770 2662.450 Output Total 630 2970 900 Balance 6827.169 2534.770 1762.450 Weight 74.6 kg 74.6 kg Intake: IV 3268 3426 1816 Dextrose 5% in Water 1, 600 1800 900 000 ml @ 150 mls/hr IV . Q7H40M [facility] with Sodium Bicarb (1 Meq/ml) 150 ml Rx#:[id number] Magnesium Sulfate-D5w Pmx 100 1 gm In Dextrose/Water 1 100ml.bag @ 100 mls/hr IVPB ONCE ONE Rx#: [id number] Piperacillin-Tazobactam 3 100 .375 gm In Sodium Chloride 0.9% 100 ml @ 25 mls/hr IVPB Q8HR PENDING SALE TO [facility] Rx# :[id number] Potassium Chloride 20 meq 100 In Water For Injection 1 100ml.bag @ 50 mls/hr IVPB Q2H PENDING SALE TO [facility] Rx#: [id number] Pressure bag 18 66 36 Sodium Chloride 0.9% 1, 650 1560 780 000 ml @ 130 mls/hr IV . Q7H42M PENDING SALE TO [facility] Rx#:[id number] Intake, IV Titration 3053.169 2078.770 846.450 Amount Albumin Human 5% 250 ml 500 In Empty Bag 2 bag @ 250 mls/hr IVPB ONCE ONE Rx#: [id number] Cisatracurium 200 mg In 9.842 2.413 Sodium Chloride 0.9% 180 ml @ 1 MCG/KG/MIN 3.81 mls/hr IV .Q24H PENDING SALE TO [facility] Rx#: [id number] EPINEPHrine 4 mg In 51.040 213.330 218.726 Dextrose 5% in Water 250 ml @ 0.03 MCG/KG/MIN 7. 144 mls/hr IV .Q24H PENDING SALE TO [facility] Rx#:[id number] Lactated Ringers 1,000 ml 1000 @ 0 mls/hr IV .STK-MED ONE Rx#:[id number] Lactated Ringers 1,000 ml 1000 @ 0 mls/hr IV .STK-MED ONE Rx#:[id number] Lactated Ringers 1,000 ml 1000 @ 999 mls/hr IV .Q1H1M [facility] Rx#:[id number] Magnesium Sulfate-D5w Pmx 200 1 gm In Dextrose/Water 1 100ml.bag @ 100 mls/hr IVPB Q1H PENDING SALE TO [facility] Rx#: [id number] Norepinephrine 8 mg In 369.045 760.528 258.000 Sodium Chloride 0.9% 250 ml @ 0.03 MCG/KG/MIN 3. 686 mls/hr IV .Q24H [facility] Rx#:[id number] Piperacillin-Tazobactam 3 100 .375 gm In Sodium Chloride 0.9% 100 ml @ 25 mls/hr IVPB Q8HR [facility] Rx# :[id number] Vasopressin 60 unit In 27.693 90.984 Sodium Chloride 0.9% 150 ml @ 0.03 UNITS/MIN 4.59 mls/hr IV .Q24H PENDING SALE TO [facility] Rx#: [id number] fentaNYL (PF). 1,000 mcg 2.381 78.74 In Sodium Chloride 0.9% 80 ml @ 0.5 MCG/KG/HR 3. 175 mls/hr IV .Q24H [facility] Rx#:[id number] propofoL 1,000 mg In 23.242 72.425 Empty Bag 1 bag @ 15 MCG/ KG/MIN 5.715 mls/hr IV . [id number] PENDING SALE TO [facility] Rx#:[id number] Blood Product 1136 Rc Pheresis 2 As3 Unit 295 [id number] Rc Pheresis 2 As3 Unit 280 [id number] Rc Pheresis 2 As3 Unit 282 [id number] Rc Pheresis As-3 Unit 279 [id number] Output: Gastric Drainage 80 100 Urine 290 320 175 Stool 2550 725 Oral Regurgitation 100 Estimated Blood Loss 160 Other: Voiding Method Indwelling Catheter Indwelling Catheter Indwelling Catheter ABP, PAP, CO, CI - Last Documented Arterial Blood Pressure 89/50 - Exam No acute distress, sedated, with an oral endotracheal tube. HEENT examination is grossly unremarkable. Mucous membranes are moist. No oral lesions. Neck supple. Full range of motion. No adenopathy thyromegaly or neck vein distention. Cardiovascular examination reveals regular rhythm rate. S1-S2 normal. No S3 or S4. No discernible murmur noted. Heart sounds are distant. Lungs reveal diminished breath sounds throughout. Minimal scattered rhonchi. No wheezes or crackles. Breath sounds are equal. Abdomen soft without bowel sounds. Ileostomy is noted. Extremities are intact. No cyanosis clubbing or edema. Skin reveals multiple tattoos. No rash. Neurologic examination cannot be assessed at this time. - Labs CBC & Chem 7: 09/23/24 10:24 09/23/24 04:11 Labs: Abnormal Lab Results - Last 24 Hours (Table) 09/22/24 09/22/24 09/22/24 Range/Units 09:24 13:10 15:47 WBC 13.48 H (4.50-10.00) 10*3/uL RBC 2.97 L (4.40-5.60) 10*6/uL Hgb 9.5 L D (13.0-17.0) g/dL Hct 28.6 L (39.6-50.0) % MPV 8.9 L (9.5-12.2) fL Immature Gran # (0.00-0.04) 10*3/uL Neutrophils # 11.33 H (1.80-7.70) 10*3/uL Neutrophils # (Manual) (1.3-7.7) k/uL Monocytes # 1.04 H (0.20-1.00) 10*3/uL Eosinophils # 0.00 L (0.04-0.35) 10*3/uL Metamyelocytes # (Man) (0) k/uL Nucleated RBCs (0-0) /100 WBC ABG pO2 (83-108) mmHg ABG O2 Saturation (94-97) % ABG Lactic Acid (0.5-1.6) mmol/L Hemoglobin (13.0-17.5) gm/dL Chloride (98-107) mmol/L Carbon Dioxide (22-30) mmol/L BUN (9-20) mg/dL Glucose (74-99) mg/dL POC Glucose (mg/dL) 233 H (70-110) mg/dL Plasma Lactic Acid Juan J (0.7-2.0) mmol/L Calcium (8.4-10.2) mg/dL Ionized Calcium Carolyn (4.5-5.3) mg/dL Magnesium (1.6-2.3) mg/dL Total Bilirubin (0.2-1.3) mg/dL AST (17-59) U/L Alkaline Phosphatase (38-126) U/L Total Protein (6.3-8.2) g/dL Albumin (3.5-5.0) g/dL Ur Specific Harper (1.001-1.035) Urine Protein (Negative) Urine Glucose (UA) (Negative) Urine Blood (Negative) Urine RBC (0-5) /hpf Urine WBC (0-5) /hpf Urine WBC Clumps (None) /hpf Urine Bacteria (None) /hpf Hyaline Casts (0-2) /lpf Urine Mucus (None) /hpf Crossmatch See Detail 09/22/24 09/22/24 09/22/24 Range/Units 16:02 18:30 18:30 WBC (4.50-10.00) 10*3/uL RBC 3.64 L (4.40-5.60) 10*6/uL Hgb 11.3 L (13.0-17.0) g/dL Hct 32.9 L (39.6-50.0) % MPV 9.3 L (9.5-12.2) fL Immature Gran # (0.00-0.04) 10*3/uL Neutrophils # (1.80-7.70) 10*3/uL Neutrophils # (Manual) (1.3-7.7) k/uL Monocytes # (0.20-1.00) 10*3/uL Eosinophils # (0.04-0.35) 10*3/uL Metamyelocytes # (Man) 0.19 H (0) k/uL Nucleated RBCs (0-0) /100 WBC ABG pO2 (83-108) mmHg ABG O2 Saturation (94-97) % ABG Lactic Acid (0.5-1.6) mmol/L Hemoglobin (13.0-17.5) gm/dL Chloride 114 H (98-107) mmol/L Carbon Dioxide 21 L (22-30) mmol/L BUN (9-20) mg/dL Glucose 218 H (74-99) mg/dL POC Glucose (mg/dL) (70-110) mg/dL Plasma Lactic Acid Juan J (0.7-2.0) mmol/L Calcium 6.7 L (8.4-10.2) mg/dL Ionized Calcium Carolyn (4.5-5.3) mg/dL Magnesium (1.6-2.3) mg/dL Total Bilirubin 1.7 H (0.2-1.3) mg/dL AST 64 H (17-59) U/L Alkaline Phosphatase 37 L (38-126) U/L Total Protein 3.3 L (6.3-8.2) g/dL Albumin 1.8 L (3.5-5.0) g/dL Ur Specific Harper 1.038 H (1.001-1.035) Urine Protein 1+ H (Negative) Urine Glucose (UA) Trace H (Negative) Urine Blood Moderate H (Negative) Urine RBC 12 H (0-5) /hpf Urine WBC 14 H (0-5) /hpf Urine WBC Clumps Rare H (None) /hpf Urine Bacteria Rare H (None) /hpf Hyaline Casts 50 H (0-2) /lpf Urine Mucus Rare H (None) /hpf Crossmatch 09/22/24 09/22/24 09/22/24 Range/Units 20:03 22:35 23:31 WBC (4.50-10.00) 10*3/uL RBC 3.50 L (4.40-5.60) 10*6/uL Hgb 11.0 L (13.0-17.0) g/dL Hct 31.4 L (39.6-50.0) % MPV (9.5-12.2) fL Immature Gran # (0.00-0.04) 10*3/uL Neutrophils # (1.80-7.70) 10*3/uL Neutrophils # (Manual) (1.3-7.7) k/uL Monocytes # (0.20-1.00) 10*3/uL Eosinophils # (0.04-0.35) 10*3/uL Metamyelocytes # (Man) 0.05 H (0) k/uL Nucleated RBCs (0-0) /100 WBC ABG pO2 256 H (83-108) mmHg ABG O2 Saturation 99.1 H (94-97) % ABG Lactic Acid (0.5-1.6) mmol/L Hemoglobin 11.5 L (13.0-17.5) gm/dL Chloride (98-107) mmol/L Carbon Dioxide (22-30) mmol/L BUN (9-20) mg/dL Glucose (74-99) mg/dL POC Glucose (mg/dL) 244 H (70-110) mg/dL Plasma Lactic Acid Juan J (0.7-2.0) mmol/L Calcium (8.4-10.2) mg/dL Ionized Calcium Carolyn (4.5-5.3) mg/dL Magnesium (1.6-2.3) mg/dL Total Bilirubin (0.2-1.3) mg/dL AST (17-59) U/L Alkaline Phosphatase (38-126) U/L Total Protein (6.3-8.2) g/dL Albumin (3.5-5.0) g/dL Ur Specific Harper (1.001-1.035) Urine Protein (Negative) Urine Glucose (UA) (Negative) Urine Blood (Negative) Urine RBC (0-5) /hpf Urine WBC (0-5) /hpf Urine WBC Clumps (None) /hpf Urine Bacteria (None) /hpf Hyaline Casts (0-2) /lpf Urine Mucus (None) /hpf Crossmatch 09/23/24 09/23/24 09/23/24 Range/Units 00:24 03:00 03:15 WBC (4.50-10.00) 10*3/uL RBC 3.29 L (4.40-5.60) 10*6/uL Hgb 10.2 L (13.0-17.0) g/dL Hct 29.8 L (39.6-50.0) % MPV (9.5-12.2) fL Immature Gran # (0.00-0.04) 10*3/uL Neutrophils # (1.80-7.70) 10*3/uL Neutrophils # (Manual) (1.3-7.7) k/uL Monocytes # (0.20-1.00) 10*3/uL Eosinophils # (0.04-0.35) 10*3/uL Metamyelocytes # (Man) 0.12 H (0) k/uL Nucleated RBCs 1 H (0-0) /100 WBC ABG pO2 (83-108) mmHg ABG O2 Saturation (94-97) % ABG Lactic Acid 2.7 H* (0.5-1.6) mmol/L Hemoglobin (13.0-17.5) gm/dL Chloride (98-107) mmol/L Carbon Dioxide (22-30) mmol/L BUN (9-20) mg/dL Glucose (74-99) mg/dL POC Glucose (mg/dL) 232 H (70-110) mg/dL Plasma Lactic Acid Juan J (0.7-2.0) mmol/L Calcium (8.4-10.2) mg/dL Ionized Calcium Carolyn (4.5-5.3) mg/dL Magnesium (1.6-2.3) mg/dL Total Bilirubin (0.2-1.3) mg/dL AST (17-59) U/L Alkaline Phosphatase (38-126) U/L Total Protein (6.3-8.2) g/dL Albumin (3.5-5.0) g/dL Ur Specific Harper (1.001-1.035) Urine Protein (Negative) Urine Glucose (UA) (Negative) Urine Blood (Negative) Urine RBC (0-5) /hpf Urine WBC (0-5) /hpf Urine WBC Clumps (None) /hpf Urine Bacteria (None) /hpf Hyaline Casts (0-2) /lpf Urine Mucus (None) /hpf Crossmatch 09/23/24 09/23/24 09/23/24 Range/Units 04:11 04:15 05:34 WBC (4.50-10.00) 10*3/uL RBC (4.40-5.60) 10*6/uL Hgb (13.0-17.0) g/dL Hct (39.6-50.0) % MPV (9.5-12.2) fL Immature Gran # (0.00-0.04) 10*3/uL Neutrophils # (1.80-7.70) 10*3/uL Neutrophils # (Manual) (1.3-7.7) k/uL Monocytes # (0.20-1.00) 10*3/uL Eosinophils # (0.04-0.35) 10*3/uL Metamyelocytes # (Man) (0) k/uL Nucleated RBCs (0-0) /100 WBC ABG pO2 (83-108) mmHg ABG O2 Saturation (94-97) % ABG Lactic Acid (0.5-1.6) mmol/L Hemoglobin (13.0-17.5) gm/dL Chloride 109 H (98-107) mmol/L Carbon Dioxide (22-30) mmol/L BUN 22 H (9-20) mg/dL Glucose 159 H (74-99) mg/dL POC Glucose (mg/dL) 179 H (70-110) mg/dL Plasma Lactic Acid Juan J (0.7-2.0) mmol/L Calcium 6.1 L* (8.4-10.2) mg/dL Ionized Calcium Carolyn 3.9 L (4.5-5.3) mg/dL Magnesium 1.1 L (1.6-2.3) mg/dL Total Bilirubin (0.2-1.3) mg/dL AST (17-59) U/L Alkaline Phosphatase (38-126) U/L Total Protein (6.3-8.2) g/dL Albumin (3.5-5.0) g/dL Ur Specific Harper (1.001-1.035) Urine Protein (Negative) Urine Glucose (UA) (Negative) Urine Blood (Negative) Urine RBC (0-5) /hpf Urine WBC (0-5) /hpf Urine WBC Clumps (None) /hpf Urine Bacteria (None) /hpf Hyaline Casts (0-2) /lpf Urine Mucus (None) /hpf Crossmatch 09/23/24 09/23/24 09/23/24 Range/Units 07:55 07:55 10:24 WBC 11.37 H (4.50-10.00) 10*3/uL RBC 3.30 L (4.40-5.60) 10*6/uL Hgb 10.3 L (13.0-17.0) g/dL Hct 30.3 L (39.6-50.0) % MPV (9.5-12.2) fL Immature Gran # 0.08 H (0.00-0.04) 10*3/uL Neutrophils # (1.80-7.70) 10*3/uL Neutrophils # (Manual) 8.75 H (1.3-7.7) k/uL Monocytes # (0.20-1.00) 10*3/uL Eosinophils # (0.04-0.35) 10*3/uL Metamyelocytes # (Man) 0.11 H (0) k/uL Nucleated RBCs (0-0) /100 WBC ABG pO2 (83-108) mmHg ABG O2 Saturation (94-97) % ABG Lactic Acid (0.5-1.6) mmol/L Hemoglobin (13.0-17.5) gm/dL Chloride (98-107) mmol/L Carbon Dioxide (22-30) mmol/L BUN (9-20) mg/dL Glucose (74-99) mg/dL POC Glucose (mg/dL) 204 H (70-110) mg/dL Plasma Lactic Acid Juan J 2.9 H* (0.7-2.0) mmol/L Calcium (8.4-10.2) mg/dL Ionized Calcium Carolyn (4.5-5.3) mg/dL Magnesium (1.6-2.3) mg/dL Total Bilirubin (0.2-1.3) mg/dL AST (17-59) U/L Alkaline Phosphatase (38-126) U/L Total Protein (6.3-8.2) g/dL Albumin (3.5-5.0) g/dL Ur Specific Harper (1.001-1.035) Urine Protein (Negative) Urine Glucose (UA) (Negative) Urine Blood (Negative) Urine RBC (0-5) /hpf Urine WBC (0-5) /hpf Urine WBC Clumps (None) /hpf Urine Bacteria (None) /hpf Hyaline Casts (0-2) /lpf Urine Mucus (None) /hpf Crossmatch 09/23/24 Range/Units 12:03 WBC (4.50-10.00) 10*3/uL RBC (4.40-5.60) 10*6/uL Hgb (13.0-17.0) g/dL Hct (39.6-50.0) % MPV (9.5-12.2) fL Immature Gran # (0.00-0.04) 10*3/uL Neutrophils # (1.80-7.70) 10*3/uL Neutrophils # (Manual) (1.3-7.7) k/uL Monocytes # (0.20-1.00) 10*3/uL Eosinophils # (0.04-0.35) 10*3/uL Metamyelocytes # (Man) (0) k/uL Nucleated RBCs (0-0) /100 WBC ABG pO2 (83-108) mmHg ABG O2 Saturation (94-97) % ABG Lactic Acid (0.5-1.6) mmol/L Hemoglobin (13.0-17.5) gm/dL Chloride (98-107) mmol/L Carbon Dioxide (22-30) mmol/L BUN (9-20) mg/dL Glucose (74-99) mg/dL POC Glucose (mg/dL) 196 H (70-110) mg/dL Plasma Lactic Acid Juan J (0.7-2.0) mmol/L Calcium (8.4-10.2) mg/dL Ionized Calcium Carolyn (4.5-5.3) mg/dL Magnesium (1.6-2.3) mg/dL Total Bilirubin (0.2-1.3) mg/dL AST (17-59) U/L Alkaline Phosphatase (38-126) U/L Total Protein (6.3-8.2) g/dL Albumin (3.5-5.0) g/dL Ur Specific Harper (1.001-1.035) Urine Protein (Negative) Urine Glucose (UA) (Negative) Urine Blood (Negative) Urine RBC (0-5) /hpf Urine WBC (0-5) /hpf Urine WBC Clumps (None) /hpf Urine Bacteria (None) /hpf Hyaline Casts (0-2) /lpf Urine Mucus (None) /hpf Crossmatch Assessment and Plan Assessment: Postop day #1, S/P exploratory laparotomy, decompression of small bowel, ileocolonic anastomotic resection, and ileostomy. Intubation, and mechanical ventilation, secondary to above surgery. Severe hypotension, likely related to sepsis/septic shock as well as hypovolemia. Acute small bowel obstruction, status post resection and ileostomy. History of Crohn's disease. Plan: Plan dated September 23, 2024. The patient is seen today in room 256. He remains on mechanical ventilator. He is on volume assist-control, rate 20, tidal volume 500, FiO2 40%, PEEP of 5. Blood gases show pO2 120, pCO2 50, pH is 7.29. The patient is postoperative day #1. He continues on Nimbex at 3 mcg/kg/min, saline at 130 cc an hour, D5W with 3 ampoules of sodium bicarbonate 150 cc an hour, fentanyl at 1 mcg/kg/h, norepinephrine 42 mcg/min, vasopressin at 0.04 units/min, epinephrine at 0.2 mcg/kg/min, propofol at 40 mcg/kg/min, and Zosyn. We added Florinef to the regimen, 0.2 mg daily. Labs, x-rays, and all medications are reviewed. We will continue to follow the patient, make recommendations. Overall prognosis remains guarded. The patient will likely need TPN in the near future. The patient continues on GI and DVT prophylaxis. Dictation was produced using [employer] software. Please excuse any grammatical, word or spelling errors. Time with Patient: Greater than 30
--- NOTE | 2024-09-23 15:01 | P.PN ---
Subjective Progress Note Date: 09/23/24 39-year-old male with history of severe Crohn's came to the hospital with nausea vomiting patient was recently discharged from the hospital after he was treated for Crohn's with prednisone. Patient is found to have bowel obstruction. Patient was taken to IR even before I evaluated the patient. 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 Patient underwent expiratory laparotomy and decompression of the small bowel, ileocolonic anastomotic resection and ileostomy creation. Patient is presently intubated on pressor support patient probably will require 2 pressors at this time receiving IV fluids. 09/23/2024 Patient is evaluated today in the intensive care unit. He is postoperative day #1 exploratory laparotomy with decompression of small bowel and ileocolonic a nastomotic resection with ileostomy placement. Chest x-ray today reveals development of bibasilar infiltrates correlate for atelectasis. patient remains on the mechanical ventilator.. He remains on multiple pressor support so he is on vasopressin as well as epinephrine. Patient is receiving IV fentanyl as Nimbex. He is receiving antibiotics in the form of Zosyn. He is on normal saline at 130 mL/h patient is also started on a bicarb drip. His blood pressure is 98/59. His heart rate is in the 130s. He has been febrile 100.4. His labs today reveal a white blood cell count 6.11, hemoglobin 10.2, sodium of 138 potassium 4.1, BUN of 22 creatinine 0.83, lactic acid of 2.9, calcium 6.1, mag nesium 1.1. Unable to complete a review of systems as patient is currently intubated sedated and on the mechanical ventilator in the intensive care unit PHYSICAL EXAMINATION: GENERAL intubated sedated on ventilatory support. HEENT: Pupils are round and equally reacting to light. EOMI. No scleral icterus. No conjunctival pallor. Normocephalic, atraumatic. No pharyngeal erythema. No thyromegaly. CARDIOVASCULAR: S1 and S2 present. No murmurs, rubs, or gallops. PULMONARY: Chest is clear to auscultation, no wheezing or crackles. ABDOMEN: Postsurgical defect abdomen, ileostomy MUSCULOSKELETAL: No joint swelling or deformity. EXTREMITIES: No cyanosis, clubbing, or pedal edema. NEUROLOGICAL sedated SKIN: No rashes. Assessment and plan - Small bowel obstruction status post small bowel resection patient has Crohn's disease and stricture secondary to that patient is presently hemodynamically unstable is on ventilatory support - Acute respiratory failure ventilator dependence post to surgery - Hypovolemic shock for which patient is on 2 pressors - Septic shock on IV zosyn - Lactic acidosis - Hypmagnesemia, hypocalcemia - History of Crohn's disease complicated Hypokalemia replace potassium DVT prophylaxis: Subcutaneous heparin Patient currently intubated and sedated on the mechanical ventilator. He is on IV solucortef. He is receiving electrolyte supplementation with magnesium, calcium. The impression and plan of care has been dictated by Ellen Duarte Nurse Practitioner as directed. Dr. Ronnie MD I have performed a history and physical examination and medical decision making of this patient, discussed the same with the dictator, and agree with the dictators assessment and plan as written, documented as a scribe. Based on total visit time, I have performed more than 50% of this visit. Objective - Vital Signs Vital signs: Vital Signs Temp 100.4 F H 09/23/24 04:00 Pulse 131 H 09/23/24 08:08 Resp 20 09/23/24 07:10 BP 105/83 09/23/24 07:10 Pulse Ox 99 09/23/24 07:10 FiO2 40 09/23/24 07:51 Intake & Output 09/22/24 09/23/24 09/23/24 18:59 06:59 18:59 Intake Total 7457.169 5504.770 544.000 Output Total 630 2970 285 Balance 6827.169 2534.770 259.000 Weight 74.6 kg Intake: IV 3268 3426 286 Dextrose 5% in Water 1, 600 1800 150 000 ml @ 150 mls/hr IV . Q7H40M [facility] with Sodium Bicarb (1 Meq/ml) 150 ml Rx#:[id number] Magnesium Sulfate-D5w Pmx 100 1 gm In Dextrose/Water 1 100ml.bag @ 100 mls/hr IVPB ONCE ONE Rx#: [id number] Potassium Chloride 20 meq 100 In Water For Injection 1 100ml.bag @ 50 mls/hr IVPB Q2H [facility] Rx#: [id number] Pressure bag 18 66 6 Sodium Chloride 0.9% 1, 650 1560 130 000 ml @ 130 mls/hr IV . Q7H42M [facility] Rx#:[id number] Intake, IV Titration 3053.169 2078.770 258.000 Amount Albumin Human 5% 250 ml 500 In Empty Bag 2 bag @ 250 mls/hr IVPB ONCE ONE Rx#: [id number] Cisatracurium 200 mg In 9.842 2.413 Sodium Chloride 0.9% 180 ml @ 1 MCG/KG/MIN 3.81 mls/hr IV .Q24H [facility] Rx#: [id number] EPINEPHrine 4 mg In 51.040 213.330 Dextrose 5% in Water 250 ml @ 0.03 MCG/KG/MIN 7. 144 mls/hr IV .Q24H [facility] Rx#:[id number] Lactated Ringers 1,000 ml 1000 @ 0 mls/hr IV .STK-MED ONE Rx#:[id number] Lactated Ringers 1,000 ml 1000 @ 0 mls/hr IV .STK-MED ONE Rx#:[id number] Lactated Ringers 1,000 ml 1000 @ 999 mls/hr IV .Q1H1M [facility] Rx#:[id number] Norepinephrine 8 mg In 369.045 760.528 258.000 Sodium Chloride 0.9% 250 ml @ 0.03 MCG/KG/MIN 3. 686 mls/hr IV .Q24H [facility] Rx#:[id number] Piperacillin-Tazobactam 3 100 .375 gm In Sodium Chloride 0.9% 100 ml @ 25 mls/hr IVPB Q8HR [facility] Rx# :[id number] Vasopressin 60 unit In 27.693 Sodium Chloride 0.9% 150 ml @ 0.03 UNITS/MIN 4.59 mls/hr IV .Q24H [facility] Rx#: [id number] fentaNYL (PF). 1,000 mcg 2.381 In Sodium Chloride 0.9% 80 ml @ 0.5 MCG/KG/HR 3. 175 mls/hr IV .Q24H [facility] Rx#:[id number] propofoL 1,000 mg In 23.242 72.425 Empty Bag 1 bag @ 15 MCG/ KG/MIN 5.715 mls/hr IV . [id number] [facility] Rx#:[id number] Blood Product 1136 Rc Pheresis 2 As3 Unit 295 [id number] Rc Pheresis 2 As3 Unit 280 [id number] Rc Pheresis 2 As3 Unit 282 [id number] Rc Pheresis As-3 Unit 279 [id number] Output: Gastric Drainage 80 100 Urine 290 320 35 Stool 2550 250 Oral Regurgitation 100 Estimated Blood Loss 160 Other: Voiding Method Indwelling Catheter Indwelling Catheter ABP, PAP, CO, CI - Last Documented Arterial Blood Pressure 98/59 - Labs CBC & Chem 7: 09/23/24 10:24 09/23/24 04:11 Labs: Abnormal Lab Results - Last 24 Hours (Table) 09/22/24 09/22/24 09/22/24 Range/Units 08:28 09:24 11:47 WBC (4.50-10.00) 10*3/uL RBC (4.40-5.60) 10*6/uL Hgb (13.0-17.0) g/dL Hct (39.6-50.0) % MPV (9.5-12.2) fL Neutrophils # (1.80-7.70) 10*3/uL Monocytes # (0.20-1.00) 10*3/uL Eosinophils # (0.04-0.35) 10*3/uL Metamyelocytes # (Man) (0) k/uL Nucleated RBCs (0-0) /100 WBC PT (10.0-12.5) sec INR (<1.2) ABG pH 7.15 L* (7.35-7.45) ABG pCO2 (35-45) mmHg ABG pO2 249 H (83-108) mmHg ABG HCO3 14 L (21-25) mmol/L ABG Total CO2 15 L (19-24) mmol/L ABG O2 Saturation 97.7 H (94-97) % ABG Lactic Acid (0.5-1.6) mmol/L Hemoglobin (13.0-17.5) gm/dL Potassium (3.5-5.1) mmol/L Chloride (98-107) mmol/L Carbon Dioxide (22-30) mmol/L BUN (9-20) mg/dL Glucose (74-99) mg/dL POC Glucose (mg/dL) 255 H (70-110) mg/dL Plasma Lactic Acid Juan J (0.7-2.0) mmol/L Calcium (8.4-10.2) mg/dL Ionized Calcium Carolyn (4.5-5.3) mg/dL Magnesium (1.6-2.3) mg/dL Total Bilirubin (0.2-1.3) mg/dL AST (17-59) U/L Alkaline Phosphatase (38-126) U/L Total Protein (6.3-8.2) g/dL Albumin (3.5-5.0) g/dL Ur Specific [place] (1.001-1.035) Urine Protein (Negative) Urine Glucose (UA) (Negative) Urine Blood (Negative) Urine RBC (0-5) /hpf Urine WBC (0-5) /hpf Urine WBC Clumps (None) /hpf Urine Bacteria (None) /hpf Hyaline Casts (0-2) /lpf Urine Mucus (None) /hpf Crossmatch See Detail 09/22/24 09/22/24 09/22/24 Range/Units 11:47 11:47 13:01 WBC (4.50-10.00) 10*3/uL RBC (4.40-5.60) 10*6/uL Hgb (13.0-17.0) g/dL Hct (39.6-50.0) % MPV (9.5-12.2) fL Neutrophils # (1.80-7.70) 10*3/uL Monocytes # (0.20-1.00) 10*3/uL Eosinophils # (0.04-0.35) 10*3/uL Metamyelocytes # (Man) (0) k/uL Nucleated RBCs (0-0) /100 WBC PT 15.3 H (10.0-12.5) sec INR 1.5 H (<1.2) ABG pH (7.35-7.45) ABG pCO2 (35-45) mmHg ABG pO2 (83-108) mmHg ABG HCO3 (21-25) mmol/L ABG Total CO2 (19-24) mmol/L ABG O2 Saturation (94-97) % ABG Lactic Acid (0.5-1.6) mmol/L Hemoglobin (13.0-17.5) gm/dL Potassium 3.4 L (3.5-5.1) mmol/L Chloride 114 H (98-107) mmol/L Carbon Dioxide 12 L (22-30) mmol/L BUN (9-20) mg/dL Glucose 233 H (74-99) mg/dL POC Glucose (mg/dL) 181 H (70-110) mg/dL Plasma Lactic Acid Juan J (0.7-2.0) mmol/L Calcium 7.7 L (8.4-10.2) mg/dL Ionized Calcium Carolyn (4.5-5.3) mg/dL Magnesium (1.6-2.3) mg/dL Total Bilirubin (0.2-1.3) mg/dL AST (17-59) U/L Alkaline Phosphatase (38-126) U/L Total Protein 4.7 L (6.3-8.2) g/dL Albumin 2.7 L (3.5-5.0) g/dL Ur Specific [place] (1.001-1.035) Urine Protein (Negative) Urine Glucose (UA) (Negative) Urine Blood (Negative) Urine RBC (0-5) /hpf Urine WBC (0-5) /hpf Urine WBC Clumps (None) /hpf Urine Bacteria (None) /hpf Hyaline Casts (0-2) /lpf Urine Mucus (None) /hpf Crossmatch 09/22/24 09/22/24 09/22/24 Range/Units 13:10 13:10 13:11 WBC 13.48 H (4.50-10.00) 10*3/uL RBC 2.97 L (4.40-5.60) 10*6/uL Hgb 9.5 L D (13.0-17.0) g/dL Hct 28.6 L (39.6-50.0) % MPV 8.9 L (9.5-12.2) fL Neutrophils # 11.33 H (1.80-7.70) 10*3/uL Monocytes # 1.04 H (0.20-1.00) 10*3/uL Eosinophils # 0.00 L (0.04-0.35) 10*3/uL Metamyelocytes # (Man) (0) k/uL Nucleated RBCs (0-0) /100 WBC PT (10.0-12.5) sec INR (<1.2) ABG pH 7.24 L (7.35-7.45) ABG pCO2 48 H (35-45) mmHg ABG pO2 279 H (83-108) mmHg ABG HCO3 20 L (21-25) mmol/L ABG Total CO2 (19-24) mmol/L ABG O2 Saturation 98.5 H (94-97) % ABG Lactic Acid (0.5-1.6) mmol/L Hemoglobin 9.8 L (13.0-17.5) gm/dL Potassium (3.5-5.1) mmol/L Chloride 114 H (98-107) mmol/L Carbon Dioxide 20 L (22-30) mmol/L BUN (9-20) mg/dL Glucose 178 H (74-99) mg/dL POC Glucose (mg/dL) (70-110) mg/dL Plasma Lactic Acid Juan J (0.7-2.0) mmol/L Calcium 8.1 L (8.4-10.2) mg/dL Ionized Calcium Carolyn (4.5-5.3) mg/dL Magnesium (1.6-2.3) mg/dL Total Bilirubin (0.2-1.3) mg/dL AST (17-59) U/L Alkaline Phosphatase (38-126) U/L Total Protein (6.3-8.2) g/dL Albumin (3.5-5.0) g/dL Ur Specific [place] (1.001-1.035) Urine Protein (Negative) Urine Glucose (UA) (Negative) Urine Blood (Negative) Urine RBC (0-5) /hpf Urine WBC (0-5) /hpf Urine WBC Clumps (None) /hpf Urine Bacteria (None) /hpf Hyaline Casts (0-2) /lpf Urine Mucus (None) /hpf Crossmatch 09/22/24 09/22/24 09/22/24 Range/Units 15:47 16:02 18:30 WBC (4.50-10.00) 10*3/uL RBC 3.64 L (4.40-5.60) 10*6/uL Hgb 11.3 L (13.0-17.0) g/dL Hct 32.9 L (39.6-50.0) % MPV 9.3 L (9.5-12.2) fL Neutrophils # (1.80-7.70) 10*3/uL Monocytes # (0.20-1.00) 10*3/uL Eosinophils # (0.04-0.35) 10*3/uL Metamyelocytes # (Man) 0.19 H (0) k/uL Nucleated RBCs (0-0) /100 WBC PT (10.0-12.5) sec INR (<1.2) ABG pH (7.35-7.45) ABG pCO2 (35-45) mmHg ABG pO2 (83-108) mmHg ABG HCO3 (21-25) mmol/L ABG Total CO2 (19-24) mmol/L ABG O2 Saturation (94-97) % ABG Lactic Acid (0.5-1.6) mmol/L Hemoglobin (13.0-17.5) gm/dL Potassium (3.5-5.1) mmol/L Chloride (98-107) mmol/L Carbon Dioxide (22-30) mmol/L BUN (9-20) mg/dL Glucose (74-99) mg/dL POC Glucose (mg/dL) 233 H (70-110) mg/dL Plasma Lactic Acid Juan J (0.7-2.0) mmol/L Calcium (8.4-10.2) mg/dL Ionized Calcium Carolyn (4.5-5.3) mg/dL Magnesium (1.6-2.3) mg/dL Total Bilirubin (0.2-1.3) mg/dL AST (17-59) U/L Alkaline Phosphatase (38-126) U/L Total Protein (6.3-8.2) g/dL Albumin (3.5-5.0) g/dL Ur Specific [place] 1.038 H (1.001-1.035) Urine Protein 1+ H (Negative) Urine Glucose (UA) Trace H (Negative) Urine Blood Moderate H (Negative) Urine RBC 12 H (0-5) /hpf Urine WBC 14 H (0-5) /hpf Urine WBC Clumps Rare H (None) /hpf Urine Bacteria Rare H (None) /hpf Hyaline Casts 50 H (0-2) /lpf Urine Mucus Rare H (None) /hpf Crossmatch 09/22/24 09/22/24 09/22/24 Range/Units 18:30 20:03 22:35 WBC (4.50-10.00) 10*3/uL RBC 3.50 L (4.40-5.60) 10*6/uL Hgb 11.0 L (13.0-17.0) g/dL Hct 31.4 L (39.6-50.0) % MPV (9.5-12.2) fL Neutrophils # (1.80-7.70) 10*3/uL Monocytes # (0.20-1.00) 10*3/uL Eosinophils # (0.04-0.35) 10*3/uL Metamyelocytes # (Man) 0.05 H (0) k/uL Nucleated RBCs (0-0) /100 WBC PT (10.0-12.5) sec INR (<1.2) ABG pH (7.35-7.45) ABG pCO2 (35-45) mmHg ABG pO2 (83-108) mmHg ABG HCO3 (21-25) mmol/L ABG Total CO2 (19-24) mmol/L ABG O2 Saturation (94-97) % ABG Lactic Acid (0.5-1.6) mmol/L Hemoglobin (13.0-17.5) gm/dL Potassium (3.5-5.1) mmol/L Chloride 114 H (98-107) mmol/L Carbon Dioxide 21 L (22-30) mmol/L BUN (9-20) mg/dL Glucose 218 H (74-99) mg/dL POC Glucose (mg/dL) 244 H (70-110) mg/dL Plasma Lactic Acid Juan J (0.7-2.0) mmol/L Calcium 6.7 L (8.4-10.2) mg/dL Ionized Calcium Carolyn (4.5-5.3) mg/dL Magnesium (1.6-2.3) mg/dL Total Bilirubin 1.7 H (0.2-1.3) mg/dL AST 64 H (17-59) U/L Alkaline Phosphatase 37 L (38-126) U/L Total Protein 3.3 L (6.3-8.2) g/dL Albumin 1.8 L (3.5-5.0) g/dL Ur Specific [place] (1.001-1.035) Urine Protein (Negative) Urine Glucose (UA) (Negative) Urine Blood (Negative) Urine RBC (0-5) /hpf Urine WBC (0-5) /hpf Urine WBC Clumps (None) /hpf Urine Bacteria (None) /hpf Hyaline Casts (0-2) /lpf Urine Mucus (None) /hpf Crossmatch 09/22/24 09/23/24 09/23/24 Range/Units 23:31 00:24 03:00 WBC (4.50-10.00) 10*3/uL RBC 3.29 L (4.40-5.60) 10*6/uL Hgb 10.2 L (13.0-17.0) g/dL Hct 29.8 L (39.6-50.0) % MPV (9.5-12.2) fL Neutrophils # (1.80-7.70) 10*3/uL Monocytes # (0.20-1.00) 10*3/uL Eosinophils # (0.04-0.35) 10*3/uL Metamyelocytes # (Man) 0.12 H (0) k/uL Nucleated RBCs 1 H (0-0) /100 WBC PT (10.0-12.5) sec INR (<1.2) ABG pH (7.35-7.45) ABG pCO2 (35-45) mmHg ABG pO2 256 H (83-108) mmHg ABG HCO3 (21-25) mmol/L ABG Total CO2 (19-24) mmol/L ABG O2 Saturation 99.1 H (94-97) % ABG Lactic Acid (0.5-1.6) mmol/L Hemoglobin 11.5 L (13.0-17.5) gm/dL Potassium (3.5-5.1) mmol/L Chloride (98-107) mmol/L Carbon Dioxide (22-30) mmol/L BUN (9-20) mg/dL Glucose (74-99) mg/dL POC Glucose (mg/dL) 232 H (70-110) mg/dL Plasma Lactic Acid Juan J (0.7-2.0) mmol/L Calcium (8.4-10.2) mg/dL Ionized Calcium Carolyn (4.5-5.3) mg/dL Magnesium (1.6-2.3) mg/dL Total Bilirubin (0.2-1.3) mg/dL AST (17-59) U/L Alkaline Phosphatase (38-126) U/L Total Protein (6.3-8.2) g/dL Albumin (3.5-5.0) g/dL Ur Specific [place] (1.001-1.035) Urine Protein (Negative) Urine Glucose (UA) (Negative) Urine Blood (Negative) Urine RBC (0-5) /hpf Urine WBC (0-5) /hpf Urine WBC Clumps (None) /hpf Urine Bacteria (None) /hpf Hyaline Casts (0-2) /lpf Urine Mucus (None) /hpf Crossmatch 09/23/24 09/23/24 09/23/24 Range/Units 03:15 04:11 04:15 WBC (4.50-10.00) 10*3/uL RBC (4.40-5.60) 10*6/uL Hgb (13.0-17.0) g/dL Hct (39.6-50.0) % MPV (9.5-12.2) fL Neutrophils # (1.80-7.70) 10*3/uL Monocytes # (0.20-1.00) 10*3/uL Eosinophils # (0.04-0.35) 10*3/uL Metamyelocytes # (Man) (0) k/uL Nucleated RBCs (0-0) /100 WBC PT (10.0-12.5) sec INR (<1.2) ABG pH (7.35-7.45) ABG pCO2 (35-45) mmHg ABG pO2 (83-108) mmHg ABG HCO3 (21-25) mmol/L ABG Total CO2 (19-24) mmol/L ABG O2 Saturation (94-97) % ABG Lactic Acid 2.7 H* (0.5-1.6) mmol/L Hemoglobin (13.0-17.5) gm/dL Potassium (3.5-5.1) mmol/L Chloride 109 H (98-107) mmol/L Carbon Dioxide (22-30) mmol/L BUN 22 H (9-20) mg/dL Glucose 159 H (74-99) mg/dL POC Glucose (mg/dL) 179 H (70-110) mg/dL Plasma Lactic Acid Juan J (0.7-2.0) mmol/L Calcium 6.1 L* (8.4-10.2) mg/dL Ionized Calcium Carolyn (4.5-5.3) mg/dL Magnesium 1.1 L (1.6-2.3) mg/dL Total Bilirubin (0.2-1.3) mg/dL AST (17-59) U/L Alkaline Phosphatase (38-126) U/L Total Protein (6.3-8.2) g/dL Albumin (3.5-5.0) g/dL Ur Specific [place] (1.001-1.035) Urine Protein (Negative) Urine Glucose (UA) (Negative) Urine Blood (Negative) Urine RBC (0-5) /hpf Urine WBC (0-5) /hpf Urine WBC Clumps (None) /hpf Urine Bacteria (None) /hpf Hyaline Casts (0-2) /lpf Urine Mucus (None) /hpf Crossmatch 09/23/24 09/23/24 09/23/24 Range/Units 05:34 07:55 07:55 WBC (4.50-10.00) 10*3/uL RBC (4.40-5.60) 10*6/uL Hgb (13.0-17.0) g/dL Hct (39.6-50.0) % MPV (9.5-12.2) fL Neutrophils # (1.80-7.70) 10*3/uL Monocytes # (0.20-1.00) 10*3/uL Eosinophils # (0.04-0.35) 10*3/uL Metamyelocytes # (Man) (0) k/uL Nucleated RBCs (0-0) /100 WBC PT (10.0-12.5) sec INR (<1.2) ABG pH (7.35-7.45) ABG pCO2 (35-45) mmHg ABG pO2 (83-108) mmHg ABG HCO3 (21-25) mmol/L ABG Total CO2 (19-24) mmol/L ABG O2 Saturation (94-97) % ABG Lactic Acid (0.5-1.6) mmol/L Hemoglobin (13.0-17.5) gm/dL Potassium (3.5-5.1) mmol/L Chloride (98-107) mmol/L Carbon Dioxide (22-30) mmol/L BUN (9-20) mg/dL Glucose (74-99) mg/dL POC Glucose (mg/dL) 204 H (70-110) mg/dL Plasma Lactic Acid Juan J 2.9 H* (0.7-2.0) mmol/L Calcium (8.4-10.2) mg/dL Ionized Calcium Carolyn 3.9 L (4.5-5.3) mg/dL Magnesium (1.6-2.3) mg/dL Total Bilirubin (0.2-1.3) mg/dL AST (17-59) U/L Alkaline Phosphatase (38-126) U/L Total Protein (6.3-8.2) g/dL Albumin (3.5-5.0) g/dL Ur Specific [place] (1.001-1.035) Urine Protein (Negative) Urine Glucose (UA) (Negative) Urine Blood (Negative) Urine RBC (0-5) /hpf Urine WBC (0-5) /hpf Urine WBC Clumps (None) /hpf Urine Bacteria (None) /hpf Hyaline Casts (0-2) /lpf Urine Mucus (None) /hpf Crossmatch Assessment and Plan Time with Patient: Less than 30
[2024-09-23 15:49] LABS: Glucose,Whole Blood 162 mg/dL (70-110)
[2024-09-23] MEDS: MVI, ADULT NO.4 WITH VIT K 10 ML, TRACE (CONC-1ML/DOSE) 1 ML in AMINO ACID 5%-D20W+LYTE... IV SCH (15:54)
[2024-09-23 17:28] LABS: HCT 29.7 % (39.6-50.0); HGB 10.1 g/dL (13.0-17.0); MCH 31.3 pg (27.0-32.0); Mean Platelet Volume 11.1 fL (9.5-12.2); Platelet Count 146 10*3/uL (140-440); RBC 3.23 10*6/uL (4.40-5.60); RDW 18.6 % (11.5-14.5); WBC 19.59 10*3/uL (4.50-10.00)
[2024-09-23 18:26] LABS: Band Neutrophils % 31 %; Lymphocytes # (M) 1.76 k/uL (1.0-4.8); Metamyelocytes # (M) 3.33 k/uL (0); Metamyelocytes % 17 %; Monocytes # (M) 1.18 k/uL (0-1.0); Myelocytes # (M) 1.76 k/uL (0); Myelocytes % 9 %; Neutrophils # (M) 11.75 k/uL (1.3-7.7); Neutrophils % (M) 29 %; Nucleated Red Blood Cells 0 /100 WBC (0-0); Total Cells Counted 200
[2024-09-23 18:27] LABS: Large Platelets Present; Toxic Vacuolation Present
[2024-09-23 18:28] LABS: Polychromasia Present
[2024-09-23 19:59] LABS: Glucose,Whole Blood 193 mg/dL (70-110)
[2024-09-23 22:42] LABS: HCT 27.8 % (39.6-50.0); HGB 9.5 g/dL (13.0-17.0); MCH 31.6 pg (27.0-32.0); MCHC 34.2 g/dL (32.0-37.0); MCV 92.4 fL (80.0-97.0); Mean Platelet Volume 11.1 fL (9.5-12.2); Platelet Count 146 10*3/uL (140-440); RBC 3.01 10*6/uL (4.40-5.60); RDW 18.7 % (11.5-14.5); WBC 22.24 10*3/uL (4.50-10.00)
[2024-09-23 23:02] LABS: Band Neutrophils % 38 %; Lymphocytes # (M) 1.56 k/uL (1.0-4.8); Metamyelocytes # (M) 3.34 k/uL (0); Metamyelocytes % 15 %; Monocytes # (M) 0.67 k/uL (0-1.0); Myelocytes # (M) 2.89 k/uL (0); Myelocytes % 13 %; Neutrophils # (M) 14.23 k/uL (1.3-7.7); Neutrophils % (M) 26 %; Nucleated Red Blood Cells 0 /100 WBC (0-0); Total Cells Counted 200
[2024-09-23 23:03] LABS: Large Platelets Present; Polychromasia Present; Toxic Vacuolation Present
[2024-09-23 23:24] LABS: Glucose,Whole Blood 176 mg/dL (70-110)
[2024-09-24 00:05] LABS: Glucose,Whole Blood 211 mg/dL (70-110)
[2024-09-24 04:08] LABS: Glucose,Whole Blood 218 mg/dL (70-110)
[2024-09-24 04:55] LABS: ABG Base Excess 1.7 mmol/L; ABG HCO3 27 mmol/L (21-25); ABG Oxygen Saturation 92.4 % (94-97); ABG PCO2 44 mmHg (35-45); ABG PH 7.39 (7.35-7.45); ABG PO2 64 mmHg (83-108); ABG TCO2 28 mmol/L (19-24)
[2024-09-24 04:57] LABS: Allen Test Performed? no
[2024-09-24 05:48] LABS: HGB 9.2 g/dL (13.0-17.0); MCH 31.5 pg (27.0-32.0); MCHC 34.1 g/dL (32.0-37.0); MCV 92.5 fL (80.0-97.0); Mean Platelet Volume 11.8 fL (9.5-12.2); Platelet Count 131 10*3/uL (140-440); RBC 2.92 10*6/uL (4.40-5.60); RDW 18.5 % (11.5-14.5); WBC 17.64 10*3/uL (4.50-10.00)
[2024-09-24 06:07] LABS: African American GFR (CKD) >90 (>60 ml/min/1.73 sqM); Anion Gap 4 mmol/L; Blood Urea Nitrogen 28 mg/dL (9-20); Carbon Dioxide 26 mmol/L (22-30); Chloride 103 mmol/L (98-107); Glucose 207 mg/dL (74-99); Magnesium 1.7 mg/dL (1.6-2.3); Non-African American GFR(CKD) >90 (>60 ml/min/1.73 sqM); Phosphorus 3.5 mg/dL (2.5-4.5); Sodium 133 mmol/L (137-145)
[2024-09-24 06:18] LABS: Calcium 5.4 mg/dL (8.4-10.2)
[2024-09-24] MEDS: MAGNESIUM SULFATE-D5W PMX 1 GM in DEXTROSE/WATER 1 100ML.BAG IVPB ONE (06:33)
[2024-09-24] MEDS: CALCIUM GLUCONATE IN NACL 2 GM in SALINE 1 100ML.BAG IVPB ONE ×2 (06:43→13:26)
[2024-09-24 07:17] VITALS: BP 108/73
[2024-09-24 07:19] LABS: Band Neutrophils % 38 %; Lymphocytes # (M) 2.82 k/uL (1.0-4.8); Metamyelocytes # (M) 0.71 k/uL (0); Metamyelocytes % 4 %; Monocytes # (M) 1.06 k/uL (0-1.0); Myelocytes # (M) 0.18 k/uL (0); Myelocytes % 1 %; Neutrophils # (M) 12.87 k/uL (1.3-7.7); Neutrophils % (M) 35 %; Nucleated Red Blood Cells 0 /100 WBC (0-0); Total Cells Counted 200
[2024-09-24 08:23] LABS: Glucose,Whole Blood 255 mg/dL (70-110)
--- NOTE | 2024-09-24 10:00 | XR ---
EXAMINATION TYPE: XR chest 1V portable DATE OF EXAM: 09/24/2024 6:03 AM COMPARISON: 09/23/2024 CLINICAL INDICATION: Male, 39 years old with history of Tube placement, TECHNIQUE: XR chest 1V portable view(s) obtained. FINDINGS: The heart size is normal. The pulmonary vasculature is normal. Small left pleural effusion is present. Endotracheal tube tip is 5.3 cm above the jeaneth. Right central venous catheter tip is within the rig ht atrium region. Nasogastric tube transverses the thorax. IMPRESSION: 1. Small right pleural effusion silhouetting the left diaphragm. 2. Lines and catheters discussed above [facility], , 09/24/2024 9:58 AM
--- NOTE | 2024-09-24 10:42 | P.PN ---
Subjective Progress Note Date: 09/24/24 History of present illness; This is a 39-year-old white male with history of Crohn's disease, presented to the ER with chronic massive small bowel obstruction with small bowel dilated up to 15 cm. Patient is known to have history of Crohn's strictures of ileocolonic anastomosis. Patient had to be taken to the operating room by surgery, underwent exploratory laparotomy decompression of small bowel, ileocolonic anastomotic resection, and ileostomy. Patient was found to have small bowel appeared dusky with massive dilatation, it was dilated up to 15 cm in diameter. It was difficult to assess the source of the obstruction hence the patient underwent enterotomy made in the small bowel and then the decompression of the small bowel was performed with suction. Apparently the patient had 7 L of fluid removed from the small bowel, enterotomy was then stapled with a BI stapler. Then the surgeon was able to visualize the small bowel obstruction, surgeon was able to visualize the site of his previous small bowel surgery and the site was noted to have ileotransverse colonic anastomosis. It was unsure if the area prior to the anastomosis was strictured down due to scar tissue or Crohn's disease. Small bowel was transected proximal to the stricture and then the colon was transected distal to the stricture then using the Enseal device the mesentery of the bowel was divided and steps of the pathology. Patient was also noted to have rotation of the small bowel and small bowel was rotated to relieve the torsion. Small bowel appeared viable then the patient underwent ileostomy which was brought up to the right lower quadrant. Patient was transferred to the ICU after surgery and he was quite hypotensive presently intubated mechanically ventilated hypotensive requiring maximal pressors patient is now on maximal norepinephrine at 0.6 mcg/kg/min receiving vasopressin at 0.04 units/min he is also receiving epinephrine being titrated. Patient is intubated and mechanically ventilated. On assist-control rate of 12 which was changed to 16 tidal volume was 500 FiO2 100% which was brought down to 60% and PEEP at 5. ABG showed a pO2 of 279 pCO2 48 pH of 7.24 patient is also receiving bicarb is also on a bicarb drip because prior ABG showed a pH of 7.15 with a PCO2 of 40. WBC count is 13.48 hemoglobin 9.5 platelets are 233. When I saw the patient in the ICU, apparently he needed more venous access according to the nurse taking care of the patient, although he does have a double-lumen catheter in the right IJ area. Went ahead and placed a triple-lumen catheter in the right femoral vein. Recommended more fluids, more blood to be given, and pressors to be titrated accordingly. The overall picture looks very grim, clinically the patient is quite ill, and remains hypotensive in spite of all these pressors. Progress note dated September 23, 2024. 39-year-old male with history of Crohn's disease, who presented to the emergency department, with massive small bowel obstruction, and small bowel dilated up to 15 cm. The patient is currently maintained in the intensive care unit, on the mechanical ventilator. He is on volume assist-control, rate 20, tidal volume 500, FiO2 40%, PEEP of 5. Blood gases from yesterday show pO2 of 256, pCO2 35, pH of 7.39. Today's blood gases on 45% show pO2 of 120, pCO2 of 50, pH of 7.29. He is postoperative day #1. He continues on multiple drips including Nimbex at 3 mcg/kg/min, saline at 130 cc an hour, D5W with 3 ampoules of sodium bicarbonate at 150 cc an hour, fentanyl at 1 mcg/kg/h, norepinephrine at 42 mcg/min, vasopressin at 0.04 units/min, epinephrine at 0.2 mcg/kg/min, propofol at 40 mcg/kg/min, and Zosyn. We will add Florinef, for better blood pressure support. Current laboratory data includes a white count 11.4, hemoglobin 10.3, hematocrit 30.3, platelet count 160,000. Sodium 138, potassium 4.1, chlorides 109, CO2 25, anion gap 4, BUN 22, creatinine 0.83. Glucose is 196. Lactic acid 2.9, calcium 6.1. TSH was normal. Cortisol levels pending. Culture studies are pending. Cultures are thus far negative. Chest x-ray shows bibasilar infiltrates, possible related to atelectasis. 09/24/24 - He is seen and evaluated in the ICU, room 256. He is on the mechanical ventilator, volume assist control , rate of 20, tidal volume of 500, FiO2 40% and PEEP of 5. Blood gases this morning show pO2 of 64, pCO2 of 44, pH of 7.39. He is pos-op day #2. He continues to be on Norepinephrine at .34 mcg/kg/min, Vasopressin at 0.01 units/min, Epinephrine at 0.15 mcg/kg/min, propofol at 45 mcg/kg/min, Nimbex at 3 mcg/kg/min and Zosyn. Current labs include WBCs 17.64, Hgb 9.2, Hct 27.0, PLT 131, Na 133, K 4.0, BUN 28, Cr 0.93, Ca 5.4. Urine culture is negative, sputum cultures continue to be pending at this time. Chest X-ray from this morning shows possible small right pleural effusion. REVIEW OF SYSTEMS: Pertinent positives and negatives noted in HPI. Physical Exam: General: nontoxic, no distress, appears at stated age; has an oral endotracheal tube in place. Derm: warm, dry, intact Head: atraumatic, normocephalic, symmetric Eyes: EOMI, anicteric sclera Mouth: no lip lesion, mucus membranes moist Cardiovascular: S1 S2 reg, no murmur, rubs, or gallops; distant heart sounds. Lungs: CTA bilateral, no rales, no accessory muscle use Abdominal: soft, non-tender to palpataion, no appreciable organomegaly Extremities: No cyanosis or edema present. Neuro: Cannot be assessed at this time. Psych: well appearing, appropriate affect Assessment/Plan: #Postop day #1, S/P exploratory laparotomy, decompression of small bowel, ileocolonic anastomotic resection, and ileostomy. #Intubation, and mechanical ventilation, secondary to above surgery. #Severe hypotension, likely related to sepsis/septic shock as well as hypovolemia. #Acute small bowel obstruction, status post resection and ileostomy. #History of Crohn's disease. #Hypocalcemia Plan dated September 24, 2024. The patient is seen today in room 256. He remains on mechanical ventilator. He is on volume assist-control, rate 20, tidal volume 500, FiO2 40%, PEEP of 5. Blood gases show pO2 64, pCO2 27, pH is 7.39. The patient is postoperative day #2. He continues on Nimbex at 3 mcg/kg/min, NS at 130 cc an hour, fentanyl at 1 mcg/kg/h, norepinephrine .34 mcg/min, epinephrine at 0.2 mcg/kg/min, propofol at 40 mcg/kg/min, and Zosyn. Plan is to increase vasopressin from 0.01 units/min back up to 0.4 units/min - after which, if weaning is possible will wean epinephrine -> vasopressin -> norepinephrine in that order D5W with 3 ampoules of sodium bicarbonate 150 cc an hour has been discontinued as patients bicarb w as 26. Florinef was added yesterday however he is unable to take anything by mouth as per surgery. Calcium was noted to be 5.4, reokaced with 2 grams - ionized calcium ordered, will continue to replace as necessary. Labs, x-rays, and all medications are reviewed. We will continue to follow the patient, make recommendations. Overall prognosis remains guarded. The patient will likely need TPN in the near future. The patient continues on GI and DVT prophylaxis. Dictation was produced using [employer]mat[employer] software. Please excuse any grammatical, word or spelling errors. Dictation was produced using [employer] dictation software. please excuse any grammatical, word or spelling errors. Sushil Jimenez MD PGY-1 IM Objective - Vital Signs Vital signs: Vital Signs Temp 99.1 F 09/24/24 04:00 Pulse 130 H 09/24/24 08:08 Resp 20 09/24/24 07:15 BP 108/73 09/24/24 07:15 Pulse Ox 94 L 09/24/24 07:15 FiO2 40 09/24/24 08:00 Intake & Output 09/23/24 09/24/24 09/24/24 18:59 06:59 18:59 Intake Total 4969.545 5166.788 419.132 Output Total 1150 1355 25 Balance 3819.545 3811.788 394.132 Weight 74.6 kg 83.4 kg Intake: IV 3436 3792 316 Dextrose 5% in Water 1, 1650 1800 150 000 ml @ 150 mls/hr IV . Q7H40M [facility] with Sodium Bicarb (1 Meq/ml) 150 ml Rx#:[id number] [facility], Adult No.4 with Vit 90 360 30 K 10 ml Trace (Conc-1Ml/ Dose) 1 ml In Amino Acid 5%-D20w+Lytes*E* 1,000 ml @ 30 mls/hr IV .Q24H [facility] Rx#:[id number] Piperacillin-Tazobactam 3 200 .375 gm In Sodium Chloride 0.9% 100 ml @ 25 mls/hr IVPB Q8HR [facility] Rx# :[id number] Pressure bag 66 72 6 Sodium Chloride 0.9% 1, 1430 1560 130 000 ml @ 130 mls/hr IV . Q7H42M [facility] Rx#:[id number] Intake, IV Titration 3657.872 6607.788 103.132 Amount Cisatracurium 200 mg In 168.036 171.846 Sodium Chloride 0.9% 180 ml @ 1 MCG/KG/MIN 3.81 mls/hr IV .Q24H [facility] Rx#: [id number] EPINEPHrine 4 mg In 468.726 406.736 Dextrose 5% in Water 250 ml @ 0.03 MCG/KG/MIN 7. 144 mls/hr IV .Q24H [facility] Rx#:[id number] Magnesium Sulfate-D5w Pmx 200 1 gm In Dextrose/Water 1 100ml.bag @ 100 mls/hr IVPB Q1H [facility] Rx#: [id number] Mvi, Adult No.4 with Vit 30 K 10 ml Trace (Conc-1Ml/ Dose) 1 ml In Amino Acid 5%-D20w+Lytes*E* 1,000 ml @ 75 mls/hr IV .BY DURATION [facility] Rx#: [id number] Norepinephrine 8 mg In 527.059 476.846 103.132 Sodium Chloride 0.9% 250 ml @ 0.03 MCG/KG/MIN 3. 686 mls/hr IV .Q24H [facility] Rx#:[id number] Vasopressin 60 unit In 90.984 90.194 Sodium Chloride 0.9% 150 ml @ 0.03 UNITS/MIN 4.59 mls/hr IV .Q24H [facility] Rx#: [id number] fentaNYL (PF). 1,000 mcg 78.74 99.166 In Sodium Chloride 0.9% 80 ml @ 0.5 MCG/KG/HR 3. 175 mls/hr IV .Q24H [facility] Rx#:[id number] propofoL 1,000 mg In 100 Empty Bag 1 bag @ 15 MCG/ KG/MIN 5.715 mls/hr IV . [id number] [facility] Rx#:[id number] Output: Urine 295 405 25 Stool 855 950 Other: Voiding Method Indwelling Catheter Indwelling Catheter ABP, PAP, CO, CI - Last Documented Arterial Blood Pressure 94/59 - Labs CBC & Chem 7: 09/24/24 05:05 09/24/24 05:05 Labs: Abnormal Lab Results - Last 24 Hours (Table) 09/23/24 09/23/24 09/23/24 Range/Units 05:29 07:55 10:24 WBC 11.37 H (4.50-10.00) 10*3/uL RBC 3.30 L (4.40-5.60) 10*6/uL Hgb 10.3 L (13.0-17.0) g/dL Hct 30.3 L (39.6-50.0) % Plt Count (140-440) 10*3/uL Immature Gran # 0.08 H (0.00-0.04) 10*3/uL Neutrophils # (Manual) 8.75 H (1.3-7.7) k/uL Monocytes # (Manual) (0-1.0) k/uL Metamyelocytes # (Man) 0.11 H (0) k/uL Myelocytes # (Manual) (0) k/uL ABG pH 7.29 L (7.35-7.45) ABG pCO2 50 H (35-45) mmHg ABG pO2 120 H (83-108) mmHg ABG HCO3 (21-25) mmol/L ABG Total CO2 26 H (19-24) mmol/L ABG O2 Saturation 97.8 H (94-97) % Hemoglobin 9.4 L (13.0-17.5) gm/dL Sodium (137-145) mmol/L BUN (9-20) mg/dL Glucose (74-99) mg/dL POC Glucose (mg/dL) (70-110) mg/dL Plasma Lactic Acid Juan J 2.9 H* (0.7-2.0) mmol/L Calcium (8.4-10.2) mg/dL 09/23/24 09/23/24 09/23/24 Range/Units 12:03 15:45 16:30 WBC 19.59 H (4.50-10.00) 10*3/uL RBC 3.23 L (4.40-5.60) 10*6/uL Hgb 10.1 L (13.0-17.0) g/dL Hct 29.7 L (39.6-50.0) % Plt Count (140-440) 10*3/uL Immature Gran # 0.32 H (0.00-0.04) 10*3/uL Neutrophils # (Manual) 11.75 H (1.3-7.7) k/uL Monocytes # (Manual) 1.18 H (0-1.0) k/uL Metamyelocytes # (Man) 3.33 H (0) k/uL Myelocytes # (Manual) 1.76 H (0) k/uL ABG pH (7.35-7.45) ABG pCO2 (35-45) mmHg ABG pO2 (83-108) mmHg ABG HCO3 (21-25) mmol/L ABG Total CO2 (19-24) mmol/L ABG O2 Saturation (94-97) % Hemoglobin (13.0-17.5) gm/dL Sodium (137-145) mmol/L BUN (9-20) mg/dL Glucose (74-99) mg/dL POC Glucose (mg/dL) 196 H 162 H (70-110) mg/dL Plasma Lactic Acid Juan J (0.7-2.0) mmol/L Calcium (8.4-10.2) mg/dL 09/23/24 09/23/24 09/23/24 Range/Units 19:57 22:30 23:22 WBC 22.24 H (4.50-10.00) 10*3/uL RBC 3.01 L (4.40-5.60) 10*6/uL Hgb 9.5 L (13.0-17.0) g/dL Hct 27.8 L (39.6-50.0) % Plt Count (140-440) 10*3/uL Immature Gran # 0.45 H (0.00-0.04) 10*3/uL Neutrophils # (Manual) 14.23 H (1.3-7.7) k/uL Monocytes # (Manual) (0-1.0) k/uL Metamyelocytes # (Man) 3.34 H (0) k/uL Myelocytes # (Manual) 2.89 H (0) k/uL ABG pH (7.35-7.45) ABG pCO2 (35-45) mmHg ABG pO2 (83-108) mmHg ABG HCO3 (21-25) mmol/L ABG Total CO2 (19-24) mmol/L ABG O2 Saturation (94-97) % Hemoglobin (13.0-17.5) gm/dL Sodium (137-145) mmol/L BUN (9-20) mg/dL Glucose (74-99) mg/dL POC Glucose (mg/dL) 193 H 176 H (70-110) mg/dL Plasma Lactic Acid Juan J (0.7-2.0) mmol/L Calcium (8.4-10.2) mg/dL 09/24/24 09/24/24 09/24/24 Range/Units 00:03 04:06 04:50 WBC (4.50-10.00) 10*3/uL RBC (4.40-5.60) 10*6/uL Hgb (13.0-17.0) g/dL Hct (39.6-50.0) % Plt Count (140-440) 10*3/uL Immature Gran # (0.00-0.04) 10*3/uL Neutrophils # (Manual) (1.3-7.7) k/uL Monocytes # (Manual) (0-1.0) k/uL Metamyelocytes # (Man) (0) k/uL Myelocytes # (Manual) (0) k/uL ABG pH (7.35-7.45) ABG pCO2 (35-45) mmHg ABG pO2 64 L (83-108) mmHg ABG HCO3 27 H (21-25) mmol/L ABG Total CO2 28 H (19-24) mmol/L ABG O2 Saturation 92.4 L (94-97) % Hemoglobin 9.5 L (13.0-17.5) gm/dL Sodium (137-145) mmol/L BUN (9-20) mg/dL Glucose (74-99) mg/dL POC Glucose (mg/dL) 211 H 218 H (70-110) mg/dL Plasma Lactic Acid Juan J (0.7-2.0) mmol/L Calcium (8.4-10.2) mg/dL 09/24/24 09/24/24 09/24/24 Range/Units 05:05 05:05 08:21 WBC 17.64 H (4.50-10.00) 10*3/uL RBC 2.92 L (4.40-5.60) 10*6/uL Hgb 9.2 L (13.0-17.0) g/dL Hct 27.0 L (39.6-50.0) % Plt Count 131 L (140-440) 10*3/uL Immature Gran # 0.70 H (0.00-0.04) 10*3/uL Neutrophils # (Manual) 12.87 H (1.3-7.7) k/uL Monocytes # (Manual) 1.06 H (0-1.0) k/uL Metamyelocytes # (Man) 0.71 H (0) k/uL Myelocytes # (Manual) 0.18 H (0) k/uL ABG pH (7.35-7.45) ABG pCO2 (35-45) mmHg ABG pO2 (83-108) mmHg ABG HCO3 (21-25) mmol/L ABG Total CO2 (19-24) mmol/L ABG O2 Saturation (94-97) % Hemoglobin (13.0-17.5) gm/dL Sodium 133 L (137-145) mmol/L BUN 28 H (9-20) mg/dL Glucose 207 H (74-99) mg/dL POC Glucose (mg/dL) 255 H (70-110) mg/dL Plasma Lactic Acid Juan J (0.7-2.0) mmol/L Calcium 5.4 L* (8.4-10.2) mg/dL Microbiology - Last 24 Hours (Table) 09/22/24 16:02 Urine Culture - Final Urine,Catheterized 09/23/24 15:13 Gram Stain - Preliminary Sputum
[2024-09-24 11:48] LABS: Glucose,Whole Blood 187 mg/dL (70-110)
--- NOTE | 2024-09-24 12:35 | P.PN ---
Subjective Progress Note Date: 09/24/24 SURGICAL PROGRESS NOTE CHIEF COMPLAINT: Ischemic bowel HISTORY OF PRESENT ILLNESS: Patient is postop day #2 status post exploratory laparotomy, decompression of small bowel, ileocolonic anastomotic resection and ileostomy. Patient remains in the ICU intubated and on mechanical ventilation. They are working on weaning down on some of the blood pressure supports. He currently is off of epinephrine. He was started on TPN for nutrition support. He has remained tachycardic. WBC is down from 22-17.6 Hgb 9.2 lactic acid 6.1 down to 5.4 PHYSICAL EXAM: VITAL SIGNS: Reviewed. GENERAL: no acute distress. HEENT: No sclera icterus. Extraocular movements grossly intact. Moist buccal mucosa. Head is atraumatic, normocephalic. ABDOMEN: Distended. Incision site clean dry and intact. Ileostomy on the right stoma is black NEUROLOGIC: Intubated and sedated ASSESSMENT: 1. Chronic massive small bowel obstruction with small bowel dilated to 15 cm 2. Internal hernia with rotation of midgut 3. Possible Crohn's stricture of ileocolonic anastomosis 4. Severe protein calorie malnutrition PLAN: - TPN started yesterday for nutrition support - Continue ICU management - Continue supportive care - Continue IV fluids - Keep patient n.p.o. - Continue to monitor stoma - Continue to monitor closely - Follow-up on pathology results - DVT prophylaxis subcu heparin Physician Flour Inspector note has been reviewed by physician. Signing provider agrees with the documented findings, assessment, and plan of care. Objective - Vital Signs Vital signs: Vital Signs Temp 99.0 F 09/24/24 12:00 Pulse 135 H 09/24/24 12:11 Resp 20 09/24/24 12:00 BP 108/73 09/24/24 07:15 Pulse Ox 95 09/24/24 12:00 FiO2 40 09/24/24 12:00 Intake & Output 09/23/24 09/24/24 09/24/24 18:59 06:59 18:59 Intake Total 4969.545 5166.788 1850.276 Output Total 1150 1355 175 Balance 3819.545 3811.788 1675.276 Weight 74.6 kg 83.4 kg Intake: IV 3436 3792 1546 Dextrose 5% in Water 1 1650 1800 450 000 ml @ 150 mls/hr IV . Q7H40M [facility] with Sodium Bicarb (1 Meq/ml) 150 ml Rx#:[id number] [facility], Adult No.4 with Vit 90 360 180 K 10 ml Trace (Conc-1Ml/ Dose) 1 ml In Amino Acid 5%-D20w+Lytes*E* 1,000 ml @ 30 mls/hr IV .Q24H [facility] Rx#:[id number] Piperacillin-Tazobactam 3 200 100 .375 gm In Sodium Chloride 0.9% 100 ml @ 25 mls/hr IVPB Q8HR [facility] Rx# :[id number] Pressure bag 66 72 36 Sodium Chloride 0.9% 1, 1430 1560 780 000 ml @ 130 mls/hr IV . Q7H42M [facility] Rx#:[id number] Intake, IV Titration 0953.131 8493.788 304.276 Amount Cisatracurium 200 mg In 168.036 171.846 Sodium Chloride 0.9% 180 ml @ 1 MCG/KG/MIN 3.81 mls/hr IV .Q24H [facility] Rx#: [id number] EPINEPHrine 4 mg In 468.726 406.736 93.264 Dextrose 5% in Water 250 ml @ 0.03 MCG/KG/MIN 7. 144 mls/hr IV .Q24H [facility] Rx#:[id number] Magnesium Sulfate-D5w Pmx 100 1 gm In Dextrose/Water 1 100ml.bag @ 100 mls/hr IVPB ONCE ONE Rx#: [id number] Magnesium Sulfate-D5w Pmx 200 1 gm In Dextrose/Water 1 100ml.bag @ 100 mls/hr IVPB Q1H [facility] Rx#: [id number] Mvi, Adult No.4 with Vit 30 K 10 ml Trace (Conc-1Ml/ Dose) 1 ml In Amino Acid 5%-D20w+Lytes*E* 1,000 ml @ 75 mls/hr IV .BY DURATION [facility] Rx#: [id number] Norepinephrine 8 mg In 527.059 476.846 103.132 Sodium Chloride 0.9% 250 ml @ 0.03 MCG/KG/MIN 3. 686 mls/hr IV .Q24H [facility] Rx#:[id number] Vasopressin 60 unit In 90.984 90.194 7.880 Sodium Chloride 0.9% 150 ml @ 0.03 UNITS/MIN 4.59 mls/hr IV .Q24H [facility] Rx#: [id number] fentaNYL (PF). 1,000 mcg 78.74 99.166 In Sodium Chloride 0.9% 80 ml @ 0.5 MCG/KG/HR 3. 175 mls/hr IV .Q24H [facility] Rx#:[id number] propofoL 1,000 mg In 100 Empty Bag 1 bag @ 15 MCG/ KG/MIN 5.715 mls/hr IV . [id number] [facility] Rx#:[id number] Output: Urine 295 405 175 Stool 855 950 Other: Voiding Method Indwelling Catheter Indwelling Catheter Indwelling Catheter ABP, PAP, CO, CI - Last Documented Arterial Blood Pressure 82/55 - Labs CBC & Chem 7: 09/24/24 05:05 09/24/24 05:05 Labs: Abnormal Lab Results - Last 24 Hours (Table) 09/23/24 09/23/24 09/23/24 Range/Units 05:29 15:45 16:30 WBC 19.59 H (4.50-10.00) 10*3/uL RBC 3.23 L (4.40-5.60) 10*6/uL Hgb 10.1 L (13.0-17.0) g/dL Hct 29.7 L (39.6-50.0) % Plt Count (140-440) 10*3/uL Immature Gran # 0.32 H (0.00-0.04) 10*3/uL Neutrophils # (Manual) 11.75 H (1.3-7.7) k/uL Monocytes # (Manual) 1.18 H (0-1.0) k/uL Metamyelocytes # (Man) 3.33 H (0) k/uL Myelocytes # (Manual) 1.76 H (0) k/uL ABG pH 7.29 L (7.35-7.45) ABG pCO2 50 H (35-45) mmHg ABG pO2 120 H (83-108) mmHg ABG HCO3 (21-25) mmol/L ABG Total CO2 26 H (19-24) mmol/L ABG O2 Saturation 97.8 H (94-97) % Hemoglobin 9.4 L (13.0-17.5) gm/dL Sodium (137-145) mmol/L BUN (9-20) mg/dL Glucose (74-99) mg/dL POC Glucose (mg/dL) 162 H (70-110) mg/dL Calcium (8.4-10.2) mg/dL Ionized Calcium Carolyn (4.5-5.3) mg/dL Triglycerides (0.00-149.00) mg/dL 09/23/24 09/23/24 09/23/24 Range/Units 19:57 22:30 23:22 WBC 22.24 H (4.50-10.00) 10*3/uL RBC 3.01 L (4.40-5.60) 10*6/uL Hgb 9.5 L (13.0-17.0) g/dL Hct 27.8 L (39.6-50.0) % Plt Count (140-440) 10*3/uL Immature Gran # 0.45 H (0.00-0.04) 10*3/uL Neutrophils # (Manual) 14.23 H (1.3-7.7) k/uL Monocytes # (Manual) (0-1.0) k/uL Metamyelocytes # (Man) 3.34 H (0) k/uL Myelocytes # (Manual) 2.89 H (0) k/uL ABG pH (7.35-7.45) ABG pCO2 (35-45) mmHg ABG pO2 (83-108) mmHg ABG HCO3 (21-25) mmol/L ABG Total CO2 (19-24) mmol/L ABG O2 Saturation (94-97) % Hemoglobin (13.0-17.5) gm/dL Sodium (137-145) mmol/L BUN (9-20) mg/dL Glucose (74-99) mg/dL POC Glucose (mg/dL) 193 H 176 H (70-110) mg/dL Calcium (8.4-10.2) mg/dL Ionized Calcium Carolyn (4.5-5.3) mg/dL Triglycerides (0.00-149.00) mg/dL 09/24/24 09/24/24 09/24/24 Range/Units 00:03 04:06 04:50 WBC (4.50-10.00) 10*3/uL RBC (4.40-5.60) 10*6/uL Hgb (13.0-17.0) g/dL Hct (39.6-50.0) % Plt Count (140-440) 10*3/uL Immature Gran # (0.00-0.04) 10*3/uL Neutrophils # (Manual) (1.3-7.7) k/uL Monocytes # (Manual) (0-1.0) k/uL Metamyelocytes # (Man) (0) k/uL Myelocytes # (Manual) (0) k/uL ABG pH (7.35-7.45) ABG pCO2 (35-45) mmHg ABG pO2 64 L (83-108) mmHg ABG HCO3 27 H (21-25) mmol/L ABG Total CO2 28 H (19-24) mmol/L ABG O2 Saturation 92.4 L (94-97) % Hemoglobin 9.5 L (13.0-17.5) gm/dL Sodium (137-145) mmol/L BUN (9-20) mg/dL Glucose (74-99) mg/dL POC Glucose (mg/dL) 211 H 218 H (70-110) mg/dL Calcium (8.4-10.2) mg/dL Ionized Calcium Carolyn (4.5-5.3) mg/dL Triglycerides (0.00-149.00) mg/dL 09/24/24 09/24/24 09/24/24 Range/Units 05:05 05:05 08:21 WBC 17.64 H (4.50-10.00) 10*3/uL RBC 2.92 L (4.40-5.60) 10*6/uL Hgb 9.2 L (13.0-17.0) g/dL Hct 27.0 L (39.6-50.0) % Plt Count 131 L (140-440) 10*3/uL Immature Gran # 0.70 H (0.00-0.04) 10*3/uL Neutrophils # (Manual) 12.87 H (1.3-7.7) k/uL Monocytes # (Manual) 1.06 H (0-1.0) k/uL Metamyelocytes # (Man) 0.71 H (0) k/uL Myelocytes # (Manual) 0.18 H (0) k/uL ABG pH (7.35-7.45) ABG pCO2 (35-45) mmHg ABG pO2 (83-108) mmHg ABG HCO3 (21-25) mmol/L ABG Total CO2 (19-24) mmol/L ABG O2 Saturation (94-97) % Hemoglobin (13.0-17.5) gm/dL Sodium 133 L (137-145) mmol/L BUN 28 H (9-20) mg/dL Glucose 207 H (74-99) mg/dL POC Glucose (mg/dL) 255 H (70-110) mg/dL Calcium 5.4 L* (8.4-10.2) mg/dL Ionized Calcium Carolyn (4.5-5.3) mg/dL Triglycerides 201.00 H (0.00-149.00) mg/dL 09/24/24 09/24/24 Range/Units 10:35 11:45 WBC (4.50-10.00) 10*3/uL RBC (4.40-5.60) 10*6/uL Hgb (13.0-17.0) g/dL Hct (39.6-50.0) % Plt Count (140-440) 10*3/uL Immature Gran # (0.00-0.04) 10*3/uL Neutrophils # (Manual) (1.3-7.7) k/uL Monocytes # (Manual) (0-1.0) k/uL Metamyelocytes # (Man) (0) k/uL Myelocytes # (Manual) (0) k/uL ABG pH (7.35-7.45) ABG pCO2 (35-45) mmHg ABG pO2 (83-108) mmHg ABG HCO3 (21-25) mmol/L ABG Total CO2 (19-24) mmol/L ABG O2 Saturation (94-97) % Hemoglobin (13.0-17.5) gm/dL Sodium (137-145) mmol/L BUN (9-20) mg/dL Glucose (74-99) mg/dL POC Glucose (mg/dL) 187 H (70-110) mg/dL Calcium (8.4-10.2) mg/dL Ionized Calcium Carolyn 3.8 L (4.5-5.3) mg/dL Triglycerides (0.00-149.00) mg/dL Microbiology - Last 24 Hours (Table) 09/22/24 16:02 Urine Culture - Final Urine,Catheterized 09/23/24 15:13 Gram Stain - Preliminary Sputum
[2024-09-24] MEDS: HEPARIN SODIUM,PORCINE 5,000 UNIT/ML 1 ML VIAL SQ SCH (12:39)
--- NOTE | 2024-09-24 12:54 | P.PN ---
Subjective Progress Note Date: 09/24/24 39-year-old male with history of severe Crohn's came to the hospital with nausea vomiting patient was recently discharged from the hospital after he was treated for Crohn's with prednisone. Patient is found to have bowel obstruction. Patient was taken to IR even before I evaluated the patient. 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 Patient underwent expiratory laparotomy and decompression of the small bowel, ileocolonic anastomotic resection and ileostomy creation. Patient is presently intubated on pressor support patient probably will require 2 pressors at this time receiving IV fluids. 09/23/2024 Patient is evaluated today in the intensive care unit. He is postoperative day #1 exploratory laparotomy with decompression of small bowel and ileocolonic a nastomotic resection with ileostomy placement. Chest x-ray today reveals development of bibasilar infiltrates correlate for atelectasis. patient remains on the mechanical ventilator.. He remains on multiple pressor support so he is on vasopressin as well as epinephrine. Patient is receiving IV fentanyl as Nimbex. He is receiving antibiotics in the form of Zosyn. He is on normal saline at 130 mL/h patient is also started on a bicarb drip. His blood pressure is 98/59. His heart rate is in the 130s. He has been febrile 100.4. His labs today reveal a white blood cell count 6.11, hemoglobin 10.2, sodium of 138 potassium 4.1, BUN of 22 creatinine 0.83, lactic acid of 2.9, calcium 6.1, mag nesium 1.1. 09/24/2024 Patient reamins in the ICU currently intubated and sedated on the mechanical ventilator. He remains on IV Levophed and IV vasopressin. Is currently sedated with propofol and Nimbex. He is receiving IV fentanyl. He is also not IV Solu- Cortef . Receiving TPN. He is currently on IV zosyn. He has active bowel sounds. He has output from the ostomy. Labs today reveal white blood cell count of 17.64, hgb 9.2, sodium 133, potassium 4.0, BUN 28, creatinine 0.93, calcium 5.4. Triglycerides of 201. Magnesium 1.7. Unable to complete a review of systems as patient is currently intubated sedated and on the mechanical ventilator in the intensive care unit PHYSICAL EXAMINATION: GENERAL intubated sedated on ventilatory support. HEENT: Pupils are round and equally reacting to light. EOMI. No scleral icterus. No conjunctival pallor. Normocephalic, atraumatic. No pharyngeal erythema. No thyromegaly. CARDIOVASCULAR: S1 and S2 present. No murmurs, rubs, or gallops. PULMONARY: Chest is clear to auscultation, no wheezing or crackles. ABDOMEN: Postsurgical defect abdomen, ileostomy MUSCULOSKELETAL: No joint swelling or deformity. EXTREMITIES: No cyanosis, clubbing, or pedal edema. NEUROLOGICAL sedated SKIN: No rashes. Assessment and plan - Small bowel obstruction status post small bowel resection patient has Crohn's disease and stricture secondary to that patient is presently hemodynamically unstable is on ventilatory support - Acute respiratory failure ventilator dependence post to surgery - Hypovolemic shock for which patient is on 2 pressors - Septic shock on IV zosyn pending blood cultures patient is febrile - Lactic acidosis - Hypmagnesemia, hypocalcemia - History of Crohn's disease complicated - Chronic nicotine use - Hypokalemia replace potassium - Hypocalcmia replace calcium DVT prophylaxis: Subcutaneous heparin Patient currently intubated and sedated on the mechanical ventilator. He is on IV solucortef. He is receiving electrolyte supplementation with magnesium, calcium. The impression and plan of care has been dictated by Ellen Duarte, Nurse Practitioner as directed. Dr. Ronnie MD I have performed a history and physical examination and medical decision making of this patient, discussed the same with the dictator, and agree with the dictators assessment and plan as written, documented as a scribe. Based on total visit time, I have performed more than 50% of this visit. Objective - Vital Signs Vital signs: Vital Signs Temp 98.4 F 09/24/24 08:00 Pulse 134 H 09/24/24 08:30 Resp 20 09/24/24 08:30 BP 108/73 09/24/24 07:15 Pulse Ox 89 L 09/24/24 08:30 FiO2 50 09/24/24 08:00 Intake & Output 09/23/24 09/24/24 09/24/24 18:59 06:59 18:59 Intake Total 4969.545 5166.788 735.132 Output Total 1150 1355 55 Balance 3819.545 3811.788 680.132 Weight 74.6 kg 83.4 kg Intake: IV 3436 3792 632 Dextrose 5% in Water 1, 1650 1800 300 000 ml @ 150 mls/hr IV . Q7H40M [facility] with Sodium Bicarb (1 Meq/ml) 150 ml Rx#:[id number] Mvi, Adult No.4 with Vit 90 360 60 K 10 ml Trace (Conc-1Ml/ Dose) 1 ml In Amino Acid 5%-D20w+Lytes*E* 1,000 ml @ 30 mls/hr IV .Q24H [facility] Rx#:[id number] Piperacillin-Tazobactam 3 200 .375 gm In Sodium Chloride 0.9% 100 ml @ 25 mls/hr IVPB Q8HR [facility] Rx# :[id number] Pressure bag 66 72 12 Sodium Chloride 0.9% 1, 1430 1560 260 000 ml @ 130 mls/hr IV . Q7H42M [facility] Rx#:[id number] Intake, IV Titration 2526.165 6488.788 103.132 Amount Cisatracurium 200 mg In 168.036 171.846 Sodium Chloride 0.9% 180 ml @ 1 MCG/KG/MIN 3.81 mls/hr IV .Q24H [facility] Rx#: [id number] EPINEPHrine 4 mg In 468.726 406.736 Dextrose 5% in Water 250 ml @ 0.03 MCG/KG/MIN 7. 144 mls/hr IV .Q24H [facility] Rx#:[id number] Magnesium Sulfate-D5w Pmx 200 1 gm In Dextrose/Water 1 100ml.bag @ 100 mls/hr IVPB Q1H [facility] Rx#: [id number] Mvi, Adult No.4 with Vit 30 K 10 ml Trace (Conc-1Ml/ Dose) 1 ml In Amino Acid 5%-D20w+Lytes*E* 1,000 ml @ 75 mls/hr IV .BY DURATION [facility] Rx#: [id number] Norepinephrine 8 mg In 527.059 476.846 103.132 Sodium Chloride 0.9% 250 ml @ 0.03 MCG/KG/MIN 3. 686 mls/hr IV .Q24H [facility] Rx#:[id number] Vasopressin 60 unit In 90.984 90.194 Sodium Chloride 0.9% 150 ml @ 0.03 UNITS/MIN 4.59 mls/hr IV .Q24H [facility] Rx#: [id number] fentaNYL (PF). 1,000 mcg 78.74 99.166 In Sodium Chloride 0.9% 80 ml @ 0.5 MCG/KG/HR 3. 175 mls/hr IV .Q24H [facility] Rx#:[id number] propofoL 1,000 mg In 100 Empty Bag 1 bag @ 15 MCG/ KG/MIN 5.715 mls/hr IV . [id number] [facility] Rx#:[id number] Output: Urine 295 405 55 Stool 855 950 Other: Voiding Method Indwelling Catheter Indwelling Catheter Indwelling Catheter ABP, PAP, CO, CI - Last Documented Arterial Blood Pressure 92/55 - Labs CBC & Chem 7: 09/24/24 05:05 09/24/24 05:05 Labs: Abnormal Lab Results - Last 24 Hours (Table) 09/23/24 09/23/24 09/23/24 Range/Units 05:29 10:24 12:03 WBC 11.37 H (4.50-10.00) 10*3/uL RBC 3.30 L (4.40-5.60) 10*6/uL Hgb 10.3 L (13.0-17.0) g/dL Hct 30.3 L (39.6-50.0) % Plt Count (140-440) 10*3/uL Immature Gran # 0.08 H (0.00-0.04) 10*3/uL Neutrophils # (Manual) 8.75 H (1.3-7.7) k/uL Monocytes # (Manual) (0-1.0) k/uL Metamyelocytes # (Man) 0.11 H (0) k/uL Myelocytes # (Manual) (0) k/uL ABG pH 7.29 L (7.35-7.45) ABG pCO2 50 H (35-45) mmHg ABG pO2 120 H (83-108) mmHg ABG HCO3 (21-25) mmol/L ABG Total CO2 26 H (19-24) mmol/L ABG O2 Saturation 97.8 H (94-97) % Hemoglobin 9.4 L (13.0-17.5) gm/dL Sodium (137-145) mmol/L BUN (9-20) mg/dL Glucose (74-99) mg/dL POC Glucose (mg/dL) 196 H (70-110) mg/dL Calcium (8.4-10.2) mg/dL 09/23/24 09/23/24 09/23/24 Range/Units 15:45 16:30 19:57 WBC 19.59 H (4.50-10.00) 10*3/uL RBC 3.23 L (4.40-5.60) 10*6/uL Hgb 10.1 L (13.0-17.0) g/dL Hct 29.7 L (39.6-50.0) % Plt Count (140-440) 10*3/uL Immature Gran # 0.32 H (0.00-0.04) 10*3/uL Neutrophils # (Manual) 11.75 H (1.3-7.7) k/uL Monocytes # (Manual) 1.18 H (0-1.0) k/uL Metamyelocytes # (Man) 3.33 H (0) k/uL Myelocytes # (Manual) 1.76 H (0) k/uL ABG pH (7.35-7.45) ABG pCO2 (35-45) mmHg ABG pO2 (83-108) mmHg ABG HCO3 (21-25) mmol/L ABG Total CO2 (19-24) mmol/L ABG O2 Saturation (94-97) % Hemoglobin (13.0-17.5) gm/dL Sodium (137-145) mmol/L BUN (9-20) mg/dL Glucose (74-99) mg/dL POC Glucose (mg/dL) 162 H 193 H (70-110) mg/dL Calcium (8.4-10.2) mg/dL 09/23/24 09/23/24 09/24/24 Range/Units 22:30 23:22 00:03 WBC 22.24 H (4.50-10.00) 10*3/uL RBC 3.01 L (4.40-5.60) 10*6/uL Hgb 9.5 L (13.0-17.0) g/dL Hct 27.8 L (39.6-50.0) % Plt Count (140-440) 10*3/uL Immature Gran # 0.45 H (0.00-0.04) 10*3/uL Neutrophils # (Manual) 14.23 H (1.3-7.7) k/uL Monocytes # (Manual) (0-1.0) k/uL Metamyelocytes # (Man) 3.34 H (0) k/uL Myelocytes # (Manual) 2.89 H (0) k/uL ABG pH (7.35-7.45) ABG pCO2 (35-45) mmHg ABG pO2 (83-108) mmHg ABG HCO3 (21-25) mmol/L ABG Total CO2 (19-24) mmol/L ABG O2 Saturation (94-97) % Hemoglobin (13.0-17.5) gm/dL Sodium (137-145) mmol/L BUN (9-20) mg/dL Glucose (74-99) mg/dL POC Glucose (mg/dL) 176 H 211 H (70-110) mg/dL Calcium (8.4-10.2) mg/dL 09/24/24 09/24/24 09/24/24 Range/Units 04:06 04:50 05:05 WBC (4.50-10.00) 10*3/uL RBC (4.40-5.60) 10*6/uL Hgb (13.0-17.0) g/dL Hct (39.6-50.0) % Plt Count (140-440) 10*3/uL Immature Gran # (0.00-0.04) 10*3/uL Neutrophils # (Manual) (1.3-7.7) k/uL Monocytes # (Manual) (0-1.0) k/uL Metamyelocytes # (Man) (0) k/uL Myelocytes # (Manual) (0) k/uL ABG pH (7.35-7.45) ABG pCO2 (35-45) mmHg ABG pO2 64 L (83-108) mmHg ABG HCO3 27 H (21-25) mmol/L ABG Total CO2 28 H (19-24) mmol/L ABG O2 Saturation 92.4 L (94-97) % Hemoglobin 9.5 L (13.0-17.5) gm/dL Sodium 133 L (137-145) mmol/L BUN 28 H (9-20) mg/dL Glucose 207 H (74-99) mg/dL POC Glucose (mg/dL) 218 H (70-110) mg/dL Calcium 5.4 L* (8.4-10.2) mg/dL 09/24/24 09/24/24 Range/Units 05:05 08:21 WBC 17.64 H (4.50-10.00) 10*3/uL RBC 2.92 L (4.40-5.60) 10*6/uL Hgb 9.2 L (13.0-17.0) g/dL Hct 27.0 L (39.6-50.0) % Plt Count 131 L (140-440) 10*3/uL Immature Gran # 0.70 H (0.00-0.04) 10*3/uL Neutrophils # (Manual) 12.87 H (1.3-7.7) k/uL Monocytes # (Manual) 1.06 H (0-1.0) k/uL Metamyelocytes # (Man) 0.71 H (0) k/uL Myelocytes # (Manual) 0.18 H (0) k/uL ABG pH (7.35-7.45) ABG pCO2 (35-45) mmHg ABG pO2 (83-108) mmHg ABG HCO3 (21-25) mmol/L ABG Total CO2 (19-24) mmol/L ABG O2 Saturation (94-97) % Hemoglobin (13.0-17.5) gm/dL Sodium (137-145) mmol/L BUN (9-20) mg/dL Glucose (74-99) mg/dL POC Glucose (mg/dL) 255 H (70-110) mg/dL Calcium (8.4-10.2) mg/dL Microbiology - Last 24 Hours (Table) 09/22/24 16:02 Urine Culture - Final Urine,Catheterized 09/23/24 15:13 Gram Stain - Preliminary Sputum Assessment and Plan Time with Patient: Less than 30
[2024-09-24] MEDS: 1: MVI, ADULT NO.4 WITH VIT K 10 ML, TRACE (CONC-1ML/DOSE) 1 ML in AMINO ACID 5%-D20W+LY IV SCH (15:27)
[2024-09-24 15:39] LABS: Glucose,Whole Blood 148 mg/dL (70-110)
[2024-09-24 20:08] LABS: Glucose,Whole Blood 172 mg/dL (70-110)
[2024-09-24 23:40] LABS: Glucose,Whole Blood 185 mg/dL (70-110)
[2024-09-25 04:16] LABS: Glucose,Whole Blood 161 mg/dL (70-110)
[2024-09-25 04:52] LABS: HCT 24.6 % (39.6-50.0); HGB 8.5 g/dL (13.0-17.0); MCH 31.5 pg (27.0-32.0); MCHC 34.6 g/dL (32.0-37.0); MCV 91.1 fL (80.0-97.0); Mean Platelet Volume 11.9 fL (9.5-12.2); Platelet Count 109 10*3/uL (140-440); RDW 17.2 % (11.5-14.5); WBC 13.69 10*3/uL (4.50-10.00)
[2024-09-25 05:08] LABS: African American GFR (CKD) >90 (>60 ml/min/1.73 sqM); Albumin 1.3 g/dL (3.5-5.0); Alkaline Phosphatase 89 U/L (38-126); Anion Gap 4 mmol/L; Blood Urea Nitrogen 32 mg/dL (9-20); Carbon Dioxide 25 mmol/L (22-30); Chloride 102 mmol/L (98-107); Glucose 135 mg/dL (74-99); Magnesium 2.1 mg/dL (1.6-2.3); Non-African American GFR(CKD) 82 (>60 ml/min/1.73 sqM); Phosphorus 2.6 mg/dL (2.5-4.5); Potassium 3.9 mmol/L (3.5-5.1); Sodium 131 mmol/L (137-145); Total Protein 2.8 g/dL (6.3-8.2)
[2024-09-25 05:23] LABS: ABG Base Excess 1.7 mmol/L; ABG HCO3 26 mmol/L (21-25); ABG Oxygen Saturation 97.3 % (94-97); ABG PCO2 38 mmHg (35-45); ABG PH 7.44 (7.35-7.45); ABG PO2 101 mmHg (83-108); ABG TCO2 27 mmol/L (19-24)
[2024-09-25 05:24] LABS: Allen Test Performed? no
[2024-09-25 05:57] LABS: ALT 1386 U/L (4-49); AST 1345 U/L (17-59); Calcium 6.4 mg/dL (8.4-10.2)
[2024-09-25] MEDS: POTASSIUM CHLORIDE 10 MEQ in WATER FOR INJECTION 1 100ML.BAG IVPB SCH (06:14)
[2024-09-25] MEDS: CALCIUM GLUCONATE IN NACL 2 GM in SALINE 1 100ML.BAG IVPB ONE (06:22)
--- NOTE | 2024-09-25 07:35 | XR ---
EXAMINATION TYPE: XR chest 1V portable DATE OF EXAM: 09/25/2024 5:40 AM COMPARISON: 09/24/2024 CLINICAL INDICATION: Male, 39 years old with history of Tube placement, difficulty breathing TECHNIQUE: XR chest 1V portable view(s) obtained. FINDINGS: The heart size is normal. The pulmonary vasculature is normal. Bibasilar infiltrates are present. Small effusions are present Endotracheal tube tip is 3.2 cm above the jeaneth. Nasogastric tube tip is within the abdomen. Right c entral venous catheter tip is in the proximal right atrium. IMPRESSION: 1. Bibasilar atelectasis and pleural effusions. Follow-up is recommended. 2. Lines and catheters discussed above [facility], , 09/25/2024 7:32 AM
[2024-09-25 08:13] LABS: Lymphocytes # (M) 0.55 k/uL (1.0-4.8); Neutrophils # (M) 12.05 k/uL (1.3-7.7); Neutrophils % (M) 88 %; Nucleated Red Blood Cells 0 /100 WBC (0-0); Total Cells Counted 100
[2024-09-25 09:51] LABS: Glucose,Whole Blood 171 mg/dL (70-110)
--- NOTE | 2024-09-25 10:53 | P.PN ---
Subjective Progress Note Date: 09/25/24 History of present illness; This is a 39-year-old white male with history of Crohn's disease, presented to the ER with chronic massive small bowel obstruction with small bowel dilated up to 15 cm. Patient is known to have history of Crohn's strictures of ileocolonic anastomosis. Patient had to be taken to the operating room by surgery, underwent exploratory laparotomy decompression of small bowel, ileocolonic anastomotic resection, and ileostomy. Patient was found to have small bowel appeared dusky with massive dilatation, it was dilated up to 15 cm in diameter. It was difficult to assess the source of the obstruction hence the patient underwent enterotomy made in the small bowel and then the decompression of the small bowel was performed with suction. Apparently the patient had 7 L of fluid removed from the small bowel, enterotomy was then stapled with a BI stapler. Then the surgeon was able to visualize the small bowel obstruction, surgeon was able to visualize the site of his previous small bowel surgery and the site was noted to have ileotransverse colonic anastomosis. It was unsure if the area prior to the anastomosis was strictured down due to scar tissue or Crohn's disease. Small bowel was transected proximal to the stricture and then the colon was transected distal to the stricture then using the Enseal device the mesentery of the bowel was divided and steps of the pathology. Patient was also noted to have rotation of the small bowel and small bowel was rotated to relieve the torsion. Small bowel appeared viable then the patient underwent ileostomy which was brought up to the right lower quadrant. Patient was transferred to the ICU after surgery and he was quite hypotensive presently intubated mechanically ventilated hypotensive requiring maximal pressors patient is now on maximal norepinephrine at 0.6 mcg/kg/min receiving vasopressin at 0.04 units/min he is also receiving epinephrine being titrated. Patient is intubated and mechanically ventilated. On assist-control rate of 12 which was changed to 16 tidal volume was 500 FiO2 100% which was brought down to 60% and PEEP at 5. ABG showed a pO2 of 279 pCO2 48 pH of 7.24 patient is also receiving bicarb is also on a bicarb drip because prior ABG showed a pH of 7.15 with a PCO2 of 40. WBC count is 13.48 hemoglobin 9.5 platelets are 233. When I saw the patient in the ICU, apparently he needed more venous access according to the nurse taking care of the patient, although he does have a double-lumen catheter in the right IJ area. Went ahead and placed a triple-lumen catheter in the right femoral vein. Recommended more fluids, more blood to be given, and pressors to be titrated accordingly. The overall picture looks very grim, clinically the patient is quite ill, and remains hypotensive in spite of all these pressors. Progress note dated September 23, 2024. 39-year-old male with history of Crohn's disease, who presented to the emergency department, with massive small bowel obstruction, and small bowel dilated up to 15 cm. The patient is currently maintained in the intensive care unit, on the mechanical ventilator. He is on volume assist-control, rate 20, tidal volume 500, FiO2 40%, PEEP of 5. Blood gases from yesterday show pO2 of 256, pCO2 35, pH of 7.39. Today's blood gases on 45% show pO2 of 120, pCO2 of 50, pH of 7.29. He is postoperative day #1. He continues on multiple drips including Nimbex at 3 mcg/kg/min, saline at 130 cc an hour, D5W with 3 ampoules of sodium bicarbonate at 150 cc an hour, fentanyl at 1 mcg/kg/h, norepinephrine at 42 mcg/min, vasopressin at 0.04 units/min, epinephrine at 0.2 mcg/kg/min, propofol at 40 mcg/kg/min, and Zosyn. We will add Florinef, for better blood pressure support. Current laboratory data includes a white count 11.4, hemoglobin 10.3, hematocrit 30.3, platelet count 160,000. Sodium 138, potassium 4.1, chlorides 109, CO2 25, anion gap 4, BUN 22, creatinine 0.83. Glucose is 196. Lactic acid 2.9, calcium 6.1. TSH was normal. Cortisol levels pending. Culture studies are pending. Cultures are thus far negative. Chest x-ray shows bibasilar infiltrates, possible related to atelectasis. 09/24/24 - He is seen and evaluated in the ICU, room 256. He is on the mechanical ventilator, volume assist control , rate of 20, tidal volume of 500, FiO2 40% and PEEP of 5. Blood gases this morning show pO2 of 64, pCO2 of 44, pH of 7.39. He is pos-op day #2. He continues to be on Norepinephrine at .34 mcg/kg/min, Vasopressin at 0.01 units/min, Epinephrine at 0.15 mcg/kg/min, propofol at 45 mcg/kg/min, Nimbex at 3 mcg/kg/min and Zosyn. Current labs include WBCs 17.64, Hgb 9.2, Hct 27.0, PLT 131, Na 133, K 4.0, BUN 28, Cr 0.93, Ca 5.4. Urine culture is negative, sputum cultures continue to be pending at this time. Chest X-ray from this morning shows possible small right pleural effusion. 09/25/24 - He is seen and evaluated in the ICU, room 256. He is on the mechanical ventilator, volume assist control , rate of 20, tidal volume of 500, FiO2 40% and PEEP of 5. Blood gases this morning show pO2 101, pCO2 38, pH 7.44. He is post-op day #3. He continues to be on Norepinephrine at 0.26 mcg/kg/min, sedated on propofol at 45 mcg/kg/min, NS at 130 cc/h, TPN (Vital HP) at 75 cc/h and on Zosyn. Labs show WBCs 13.89, Hgb 8.5, Hct 24.6, PLT 109, Na 131, K 3.9, bicarb 25, BUN 32, Cr 1.14, Ca 6.4, Ionized Ca 4.0, AST 1345, ALT 1386, Albumin 1.3. Sputum and blood cultures continue to be pending at this time. Chest X-ray from this morning shows bibasilar atelectasis. REVIEW OF SYSTEMS: Pertinent positives and negatives noted in HPI. Physical Exam: General: nontoxic, no distress, appears at stated age; has an oral endotracheal tube in place. Derm: warm, dry, intact Head: atraumatic, normocephalic, symmetric Eyes: EOMI, anicteric sclera Mouth: no lip lesion, mucus membranes moist Cardiovascular: S1 S2 reg, no murmur, rubs, or gallops; distant heart sounds. Lungs: CTA bilateral, no rales, no accessory muscle use Abdominal: soft, non-tender to palpataion, no appreciable organomegaly; blackened, necrotic appearing stoma. Extremities: No cyanosis or edema present. Neuro: Cannot be assessed at this time. Psych: well appearing, appropriate affect Assessment/Plan: #Postop day #3, S/P exploratory laparotomy, decompression of small bowel, ileocolonic anastomotic resection, and ileostomy. #Intubation, and mechanical ventilation, secondary to above surgery. #Severe hypotension, likely related to sepsis/septic shock as well as hypovolemia. #Acute small bowel obstruction, status post resection and ileostomy. #History of Crohn's disease. #Hypocalcemia #Likely septic hepatopathy #Relative adrenal insufficiency Plan dated September 25, 2024. The patient is seen today in room 256. He remains on mechanical ventilator. He is on volume assist-control, rate 20, tidal volume 500, FiO2 40%, PEEP of 5. Blood gases show pO2 101, pCO2 38, pH is 7.44. The patient is postoperative day #3. He continues on Norepinephrine .26 mcg/min, propofol at 40 mcg/kg/min, NS at 130 cc/h, TPN (Vital HP) at 75 cc/h and Zosyn. Vasopressin and Epinephrine have been discontinued. Calcium was noted to be 6.4, replaced with 2 grams - ionized calcium this morning (prior to replacement) was 4.0, will continue to replace as necessary. Previous plan of administering Florinef was held due to being unable to take anything by mouth, however after discussion with surgery, able to crush the Florinef - however we are uncertain of how well it will be absorbed. Serum cortisol level ordered, currently pending. Will continue to wean off norepinephrine and nimbex as able. Vitamin D studies are currently pending. Acute increase in AST and ALT to 1345 and 1386 respectively, as compared to previous level on 09/22/24 of 64 and 24, will order abdominal CT w/contrast and an US of the liver. Labs, x-rays, and all medications are reviewed. We will continue to follow the patient, make recommendations. The patient continues on GI and DVT prophylaxis. Dictation was produced using [employer] software. Please excuse any grammatical, word or spelling errors. Dictation was produced using [email or web address] software. please excuse any grammatical, word or spelling errors. Sushil Jimenez MD PGY-1 IM Objective - Vital Signs Vital signs: Vital Signs Temp 98.6 F 09/25/24 05:00 Pulse 121 H 06/18/25 08:34 Resp 20 09/25/24 08:34 BP 108/73 09/24/24 07:15 Pulse Ox 97 09/25/24 07:00 FiO2 40 09/25/24 08:35 Intake & Output 09/24/24 09/25/24 09/25/24 18:59 06:59 18:59 Intake Total 4007.281 4416.049 246.506 Output Total 605 1170 50 Balance 3402.281 3246.049 196.506 Weight 83 kg Intake: IV 2452 1632 136 Dextrose 5% in Water 1, 450 000 ml @ 150 mls/hr IV . Q7H40M [facility] with Sodium Bicarb (1 Meq/ml) 150 ml Rx#:[id number] Mvi, Adult No.4 with Vit 270 K 10 ml Trace (Conc-1Ml/ Dose) 1 ml In Amino Acid 5%-D20w+Lytes*E* 1,000 ml @ 30 mls/hr IV .Q24H [facility] Rx#:[id number] Piperacillin-Tazobactam 3 100 .375 gm In Sodium Chloride 0.9% 100 ml @ 25 mls/hr IVPB Q8HR [facility] Rx# :[id number] Pressure bag 72 72 6 Sodium Chloride 0.9% 1, 1560 1560 130 000 ml @ 130 mls/hr IV . Q7H42M [facility] Rx#:[id number] Intake, IV Titration 1151.810 9728.049 110.506 Amount Amino Acid 5%-D20w+Lytes* 225 450 E* 1,000 ml @ 75 mls/hr IV .BY DURATION [facility] Rx#: [id number] Calcium Gluconate in NaCl 100 2 gm In Saline 1 100ml. bag @ 100 mls/hr IVPB ONCE ONE Rx#:[id number] Cisatracurium 200 mg In 281.919 Sodium Chloride 0.9% 180 ml @ 1 MCG/KG/MIN 3.81 mls/hr IV .Q24H [facility] Rx#: [id number] EPINEPHrine 4 mg In 93.264 Dextrose 5% in Water 250 ml @ 0.03 MCG/KG/MIN 7. 144 mls/hr IV .Q24H [facility] Rx#:[id number] Magnesium Sulfate-D5w Pmx 100 1 gm In Dextrose/Water 1 100ml.bag @ 100 mls/hr IVPB ONCE ONE Rx#: [id number] Mvi, Adult No.4 with Vit 1300 K 10 ml Trace (Conc-1Ml/ Dose) 1 ml In Amino Acid 5%-D20w+Lytes*E* 1,000 ml @ 75 mls/hr IV .BY DURATION [facility] Rx#: [id number] Norepinephrine 8 mg In 609.146 552.130 10.506 Sodium Chloride 0.9% 250 ml @ 0.03 MCG/KG/MIN 3. 686 mls/hr IV .Q24H [facility] Rx#:[id number] Piperacillin-Tazobactam 3 100 .375 gm In Sodium Chloride 0.9% 100 ml @ 25 mls/hr IVPB Q8HR [facility] Rx# :[id number] Potassium Chloride 10 meq 100 100 In Water For Injection 1 100ml.bag @ 100 mls/hr IVPB Q1H [facility] Rx#: [id number] Vasopressin 60 unit In 44.371 Sodium Chloride 0.9% 150 ml @ 0.03 UNITS/MIN 4.59 mls/hr IV .Q24H [facility] Rx#: [id number] fentaNYL (PF). 1,000 mcg 97.896 In Sodium Chloride 0.9% 80 ml @ 0.5 MCG/KG/HR 3. 175 mls/hr IV .Q24H [facility] Rx#:[id number] propofoL 1,000 mg In 185.604 100.000 Empty Bag 1 bag @ 15 MCG/ KG/MIN 5.715 mls/hr IV . [id number] [facility] Rx#:[id number] Output: Gastric Drainage 350 Urine 255 870 50 Stool 300 Other: Voiding Method Indwelling Catheter Indwelling Catheter ABP, PAP, CO, CI - Last Documented Arterial Blood Pressure 109/66 - Labs CBC & Chem 7: 09/25/24 04:15 09/25/24 04:15 Labs: Abnormal Lab Results - Last 24 Hours (Table) 09/24/24 09/24/24 09/24/24 Range/Units 05:05 10:35 11:45 WBC (4.50-10.00) 10*3/uL RBC (4.40-5.60) 10*6/uL Hgb (13.0-17.0) g/dL Hct (39.6-50.0) % Plt Count (140-440) 10*3/uL Immature Gran # (0.00-0.04) 10*3/uL Neutrophils # (Manual) (1.3-7.7) k/uL Lymphocytes # (Manual) (1.0-4.8) k/uL Monocytes # (Manual) (0-1.0) k/uL ABG HCO3 (21-25) mmol/L ABG Total CO2 (19-24) mmol/L ABG O2 Saturation (94-97) % Hemoglobin (13.0-17.5) gm/dL Sodium (137-145) mmol/L BUN (9-20) mg/dL Glucose (74-99) mg/dL POC Glucose (mg/dL) 187 H (70-110) mg/dL Calcium (8.4-10.2) mg/dL Ionized Calcium Carolyn 3.8 L (4.5-5.3) mg/dL AST (17-59) U/L ALT (4-49) U/L Total Protein (6.3-8.2) g/dL Albumin (3.5-5.0) g/dL Triglycerides 201.00 H (0.00-149.00) mg/dL 09/24/24 09/24/24 09/24/24 Range/Units 15:38 20:06 23:39 WBC (4.50-10.00) 10*3/uL RBC (4.40-5.60) 10*6/uL Hgb (13.0-17.0) g/dL Hct (39.6-50.0) % Plt Count (140-440) 10*3/uL Immature Gran # (0.00-0.04) 10*3/uL Neutrophils # (Manual) (1.3-7.7) k/uL Lymphocytes # (Manual) (1.0-4.8) k/uL Monocytes # (Manual) (0-1.0) k/uL ABG HCO3 (21-25) mmol/L ABG Total CO2 (19-24) mmol/L ABG O2 Saturation (94-97) % Hemoglobin (13.0-17.5) gm/dL Sodium (137-145) mmol/L BUN (9-20) mg/dL Glucose (74-99) mg/dL POC Glucose (mg/dL) 148 H 172 H 185 H (70-110) mg/dL Calcium (8.4-10.2) mg/dL Ionized Calcium Carolyn (4.5-5.3) mg/dL AST (17-59) U/L ALT (4-49) U/L Total Protein (6.3-8.2) g/dL Albumin (3.5-5.0) g/dL Triglycerides (0.00-149.00) mg/dL 09/25/24 09/25/24 09/25/24 Range/Units 04:13 04:15 04:15 WBC 13.69 H (4.50-10.00) 10*3/uL RBC 2.70 L (4.40-5.60) 10*6/uL Hgb 8.5 L (13.0-17.0) g/dL Hct 24.6 L (39.6-50.0) % Plt Count 109 L (140-440) 10*3/uL Immature Gran # 0.20 H (0.00-0.04) 10*3/uL Neutrophils # (Manual) 12.05 H (1.3-7.7) k/uL Lymphocytes # (Manual) 0.55 L (1.0-4.8) k/uL Monocytes # (Manual) 1.10 H (0-1.0) k/uL ABG HCO3 (21-25) mmol/L ABG Total CO2 (19-24) mmol/L ABG O2 Saturation (94-97) % Hemoglobin (13.0-17.5) gm/dL Sodium 131 L (137-145) mmol/L BUN 32 H (9-20) mg/dL Glucose 135 H (74-99) mg/dL POC Glucose (mg/dL) 161 H (70-110) mg/dL Calcium 6.4 L* (8.4-10.2) mg/dL Ionized Calcium Carolyn 4.0 L (4.5-5.3) mg/dL AST 1345 H (17-59) U/L ALT 1386 H (4-49) U/L Total Protein 2.8 L (6.3-8.2) g/dL Albumin 1.3 L (3.5-5.0) g/dL Triglycerides (0.00-149.00) mg/dL 09/25/24 Range/Units 05:18 WBC (4.50-10.00) 10*3/uL RBC (4.40-5.60) 10*6/uL Hgb (13.0-17.0) g/dL Hct (39.6-50.0) % Plt Count (140-440) 10*3/uL Immature Gran # (0.00-0.04) 10*3/uL Neutrophils # (Manual) (1.3-7.7) k/uL Lymphocytes # (Manual) (1.0-4.8) k/uL Monocytes # (Manual) (0-1.0) k/uL ABG HCO3 26 H (21-25) mmol/L ABG Total CO2 27 H (19-24) mmol/L ABG O2 Saturation 97.3 H (94-97) % Hemoglobin 8.8 L (13.0-17.5) gm/dL Sodium (137-145) mmol/L BUN (9-20) mg/dL Glucose (74-99) mg/dL POC Glucose (mg/dL) (70-110) mg/dL Calcium (8.4-10.2) mg/dL Ionized Calcium Carolyn (4.5-5.3) mg/dL AST (17-59) U/L ALT (4-49) U/L Total Protein (6.3-8.2) g/dL Albumin (3.5-5.0) g/dL Triglycerides (0.00-149.00) mg/dL Microbiology - Last 24 Hours (Table) 09/23/24 10:23 Blood Culture - Preliminary Blood 09/23/24 15:13 Gram Stain - Preliminary Sputum Sputum Culture - Preliminary
[2024-09-25 12:24] LABS: Glucose,Whole Blood 195 mg/dL (70-110)
--- NOTE | 2024-09-25 13:00 | US ---
EXAMINATION TYPE: US liver DATE OF EXAM: 09/25/2024 COMPARISON: CT(09/22/2024) CLINICAL INDICATION: Male, 39 years old with history of transaminitis; TECHNIQUE: Grayscale and color Doppler imaging of the right upper quadrant. FINDINGS: EXAM MEASUREMENTS: Liver Length: 17.6 cm Gallbladder Wall: 0.4 cm CBD: 0.2 cm, color Doppler imaging was utilized to isolate the common bile duct for measurement. 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 Thickened edematous wall . There may be some fluid adjacent to the gal lbladder. Clinical correlation for acute cholecystitis is recommended. Evidence for sonographic Horton's sign: No CBD: wnl Right Kidney: No hydronephrosis or masses seen Abdominal fluid seen throughout abdomen IMPRESSION: 1. Clinical correlation for acute cholecystitis. 2. Hepatomegaly 3. Mild ascites [facility], , 09/25/2024 12:58 PM
[2024-09-25 13:36] VITALS: BMI 25.4
[2024-09-25 16:05] LABS: Glucose,Whole Blood 188 mg/dL (70-110)
[2024-09-25] MEDS: 1: MVI, ADULT NO.4 WITH VIT K 10 ML, TRACE (CONC-1ML/DOSE) 1 ML in AMINO ACID 5%-D15W+LY IV SCH (17:03)
[2024-09-25] MEDS ORDERED: HEPARIN SODIUM 1,000 UN/ML (10ML VL) IV PRN (17:31)
--- NOTE | 2024-09-25 17:39 | CT ---
EXAMINATION TYPE: CT abdomen pelvis w con DATE OF EXAM: 09/25/2024 4:56 PM COMPARISON: Prior CT abdomen/pelvis dated . CLINICAL INDICATION: Male, 39 years old with history of blackened appearing stoma; blackened stoma TECHNIQUE: Axial CT abdomen pelvis w con;Sagittal and coronal reformats were created on a separate w orkstation. Contrast used:100 mL of Isovue 300 with IV Contrast, (none if empty) Oral contrast used: without Oral Contrast (none if empty) CT DLP: 1358 mGycm, Automated exposure control for dose reduction was used. FINDINGS: LOWER CHEST: Small bilateral pleural effusions and adjacent lower lobe consolidative changes which co uld reflect atelectasis and/or pneumonia. ABDOMEN LIVER: Severely limited evaluation due to overlying extremities. Indeterminate apparent hypoattenuati ng/hypoenhancing regions in the right hepatic lobe most pronounced on arterial phase (8-112). GALLBLADDER AND BILE DUCTS: Unremarkable. PANCREAS: Indeterminate apparent hypoattenuation/upper enhancement involving the pancreatic body (35- 74). No pancreatic ductal dilatation. SPLEEN: Hypoenhancement involving the anterior spleen which is indeterminate. ADRENAL GLANDS: Unremarkable. KIDNEYS AND URETERS: No evidence of hydronephrosis or renal calculus. The ureters are unremarkable. Numerous hypoattenuating lesions in the bilateral kidneys. PELVIS BLADDER: Nondistended with Jarrett catheter in place. REPRODUCTIVE: Unremarkable. ABDOMEN & PELVIS STOMACH AND BOWEL: Severely dilated small bowel loops throughout the abdomen, similar to multiple alex or studies. There are multifocal regions of abnormal small bowel wall thickening and mucosal hyperenh ancement which could reflect stricturing. There is new free air in the intra-abdominal cavity, presum ably related to recent surgery given overlying skin rodrigo and subcutaneous gas. There is a right lo wer quadrant ileostomy now present. No definite evidence of small bowel pneumatosis. There is preser consuelo small bowel wall enhancement at this time. Enteric tube terminates within the gastric lumen. PERITONEUM/RETROPERITONEUM: Diffuse moderate to large volume abdominal ascites. Pneumoperitoneum invo lving the intra-abdominal cavity as above. VASCULATURE: No evidence of aortic aneurysm. 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 Possible short segment focal complete occlusion which could reflect se quelae of emboli and/or component of postoperative edema. MUSCULOSKELETAL: No acute osseous abnormalities LYMPH NODES: No gross evidence for lymphadenopathy. SOFT TISSUE/ABDOMINAL WALL: Skin rodrigo and soft tissue gas/edema related to recent surgery. IMPRESSION: 1. Severe stenosis and possible regions of short segment focal complete occlusion involving the prox imal celiac artery, which is new from prior studies. Findings are concerning for sequelae of emboli, especially given hypoenhancing regions in the right hepatic lobe, spleen and pancreas which are are s uggestive of developing parenchymal infarctions. Recommend correlation with liver function tests and lactate values. 2. Interval postoperative changes of partial small bowel resection with right lower quadrant ileosto my now present. There is persistent severe dilatation of multiple small bowel loops and intervening r egions of small bowel wall thickening with suspected stricturing. Overall, degree of small bowel dila tation is similar to multiple recent prior studies. There is preserved small bowel wall enhancement a nd no definite evidence of pneumatosis at this time. 3. Moderate to large volume diffuse abdominal ascites. 4. Additional findings as above. *Critical findings were discussed with both CLAUDIA Johnson and attending ICU physician at 5:30 PM on 025. [facility], Workstation: [email or web address], 09/25/2024 5:37 PM
[2024-09-25 17:49] LABS: Basophils # (A) 0.01 10*3/uL (0.00-0.10); Basophils % (A) 0.1 %; Eosinophils # (A) 0.01 10*3/uL (0.04-0.35); Eosinophils % (A) 0.1 %; HCT 22.8 % (39.6-50.0); HGB 7.8 g/dL (13.0-17.0); Immature Platelet Fraction 6.3 % (1.1-6.1); Lymphocytes # (A) 0.43 10*3/uL (0.90-5.00); Lymphocytes % (A) 5.3 %; MCH 31.5 pg (27.0-32.0); MCHC 34.2 g/dL (32.0-37.0); MCV 91.9 fL (80.0-97.0); Mean Platelet Volume 11.4 fL (9.5-12.2); Monocytes # (A) 1.13 10*3/uL (0.20-1.00); Monocytes % (A) 13.8 %; Neutrophils # (A) 6.16 10*3/uL (1.80-7.70); Neutrophils % (A) 75.3 %; RBC 2.48 10*6/uL (4.40-5.60); RDW 16.8 % (11.5-14.5); WBC 8.18 10*3/uL (4.50-10.00)
[2024-09-25 17:57] LABS: Partial Thromboplastin Time 33.3 sec (22.0-30.0); Prothrombin Time 11.1 sec (10.0-12.5)
[2024-09-25] MEDS: HEPARIN SODIUM 1,000 UN/ML (10ML VL) IV ONE (17:58)
[2024-09-25] MEDS: HEPARIN SOD,PORK IN 0.45% NACL 25,000 UNIT in 0.45% NACL 1 250ML.BAG IV SCH (17:58)
[2024-09-25] MEDS ORDERED: 1: MVI, ADULT NO.4 WITH VIT K 10 ML, TRACE (CONC-1ML/DOSE) 1 ML, SODIUM CHLORIDE 4MEQ/ML IV SCH ×2 (18:00)
[2024-09-25 18:40] LABS: Platelet Count 79 10*3/uL (140-440)
[2024-09-25 20:20] LABS: Glucose,Whole Blood 181 mg/dL (70-110)
--- NOTE | 2024-09-25 22:09 | P.PN ---
Subjective Progress Note Date: 09/25/24 39-year-old male with history of severe Crohn's came to the hospital with nausea vomiting patient was recently discharged from the hospital after he was treated for Crohn's with prednisone. Patient is found to have bowel obstruction. Patient was taken to IR even before I evaluated the patient. 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 Patient underwent expiratory laparotomy and decompression of the small bowel, ileocolonic anastomotic resection and ileostomy creation. Patient is presently intubated on pressor support patient probably will require 2 pressors at this time receiving IV fluids. 09/23/2024 Patient is evaluated today in the intensive care unit. He is postoperative day #1 exploratory laparotomy with decompression of small bowel and ileocolonic a nastomotic resection with ileostomy placement. Chest x-ray today reveals development of bibasilar infiltrates correlate for atelectasis. patient remains on the mechanical ventilator.. He remains on multiple pressor support so he is on vasopressin as well as epinephrine. Patient is receiving IV fentanyl as Nimbex. He is receiving antibiotics in the form of Zosyn. He is on normal saline at 130 mL/h patient is also started on a bicarb drip. His blood pressure is 98/59. His heart rate is in the 130s. He has been febrile 100.4. His labs today reveal a white blood cell count 6.11, hemoglobin 10.2, sodium of 138 potassium 4.1, BUN of 22 creatinine 0.83, lactic acid of 2.9, calcium 6.1, mag nesium 1.1. 09/24/2024 Patient reamins in the ICU currently intubated and sedated on the mechanical ventilator. He remains on IV Levophed and IV vasopressin. Is currently sedated with propofol and Nimbex. He is receiving IV fentanyl. He is also not IV Solu- Cortef . Receiving TPN. He is currently on IV zosyn. He has active bowel sounds. He has output from the ostomy. Labs today reveal white blood cell count of 17.64, hgb 9.2, sodium 133, potassium 4.0, BUN 28, creatinine 0.93, calcium 5.4. Triglycerides of 201. Magnesium 1.7. 09/25/2024 Patient is in the MICU. postoperative day 3. Currently intubated, sedated and on mechanical ventilator.On pressor support with norepinephrine and vasopressin. On TPN. Otherwise patient was noted to have dark-colored liquid coming from the ostomy. Hemoglobin is 9.2. Patient is afebrile. On antibiotics in the form of Zosyn. Chest x-ray showed bibasilar atelectasis and pleural effusions. Ultrasound liver showed clinical correlation for acute cholecystitis. Other laboratory data showed WBC 13.6 hemoglobin 8.5 platelets 109 Sodium 131 potassium 3.9 chloride 102 bicarb is 25 BUN 3020 creatinine 1.14 and blood sugar 135 and calcium 6.4. AST 1345 and ALT 1386 and alk phos 89. Total bili 1.0 Vitamin D level is 11.1, sputum culture showed Lizbet tropicalis. CT abdomen pelvis is pending. Unable to complete a review of systems as patient is currently intubated sedated and on the mechanical ventilator in the intensive care unit. PHYSICAL EXAMINATION: GENERAL intubated sedated on ventilatory support. HEENT: Pupils are round and equally reacting to light. EOMI. No scleral icterus. No conjunctival pallor. Normocephalic, atraumatic. No pharyngeal erythema. No thyromegaly. CARDIOVASCULAR: S1 and S2 present. No murmurs, rubs, or gallops. PULMONARY: Chest is clear to auscultation, no wheezing or crackles. ABDOMEN: Postsurgical defect abdomen, ileostomy MUSCULOSKELETAL: No joint swelling or deformity. EXTREMITIES: No cyanosis, clubbing, bilateral lower extremity 4+ edema with scrotal swelling NEUROLOGICAL sedated SKIN: No rashes. Assessment and plan - Small bowel obstruction status post exp laparotomy, small bowel resection, decompression of small bowel, ileocolonic anastomotic resection, and ileostomy. Patient has Crohn's disease and stricture secondary to that patient is presently hemodynamically unstable is on ventilatory support - Acute respiratory failure ventilator dependent post to surgery - Hypovolemic shock for which patient is on 2 pressors - Septic shock on IV zosyn. Pending blood cultures. Negative so far. Patient is febrile - Hypocalcemia - Vitamin D deficiency - Relative adrenal insufficiency - Lactic acidosis - Hypmagnesemia, hypocalcemia - History of Crohn's disease complicated - Chronic nicotine use - Hypokalemia replace potassium - Hypocalcmia replace calcium DVT prophylaxis: Subcutaneous heparin Patient currently intubated and sedated on the mechanical ventilator. He is on IV solucortef. He is receiving electrolyte supplementation with magnesium, calcium. Patient is also on TPN. Critical care team, general surgery is on board. Objective - Vital Signs Vital signs: Vital Signs Temp 99.6 F 09/25/24 08:00 Pulse 118 H 09/25/24 13:00 Resp 21 09/25/24 13:00 BP 108/73 09/24/24 07:15 Pulse Ox 95 09/25/24 13:00 FiO2 40 09/25/24 12:00 Intake & Output 09/24/24 09/25/24 09/25/24 18:59 06:59 18:59 Intake Total 4007.281 4416.049 1624.224 Output Total 605 1170 975 Balance 3402.281 3246.049 649.224 Weight 83 kg Intake: IV 2452 1632 1142 Dextrose 5% in Water 1, 450 000 ml @ 150 mls/hr IV . Q7H40M [facility] with Sodium Bicarb (1 Meq/ml) 150 ml Rx#:[id number] KVO 90 Mvi, Adult No.4 with Vit 270 K 10 ml Trace (Conc-1Ml/ Dose) 1 ml In Amino Acid 5%-D20w+Lytes*E* 1,000 ml @ 30 mls/hr IV .Q24H [facility] Rx#:[id number] Piperacillin-Tazobactam 3 100 100 .375 gm In Sodium Chloride 0.9% 100 ml @ 25 mls/hr IVPB Q8HR [facility] Rx# :[id number] Pressure bag 72 72 42 Sodium Chloride 0.9% 1, 1560 1560 910 000 ml @ 130 mls/hr IV . Q7H42M [facility] Rx#:[id number] Intake, IV Titration 9618.356 8882.049 482.224 Amount Amino Acid 5%-D20w+Lytes* 225 450 E* 1,000 ml @ 75 mls/hr IV .BY DURATION [facility] Rx#: [id number] Calcium Gluconate in NaCl 100 2 gm In Saline 1 100ml. bag @ 100 mls/hr IVPB ONCE ONE Rx#:[id number] Cisatracurium 200 mg In 281.919 Sodium Chloride 0.9% 180 ml @ 1 MCG/KG/MIN 3.81 mls/hr IV .Q24H [facility] Rx#: [id number] EPINEPHrine 4 mg In 93.264 Dextrose 5% in Water 250 ml @ 0.03 MCG/KG/MIN 7. 144 mls/hr IV .Q24H [facility] Rx#:[id number] Magnesium Sulfate-D5w Pmx 100 1 gm In Dextrose/Water 1 100ml.bag @ 100 mls/hr IVPB ONCE ONE Rx#: [id number] Mvi, Adult No.4 with Vit 1300 K 10 ml Trace (Conc-1Ml/ Dose) 1 ml In Amino Acid 5%-D20w+Lytes*E* 1,000 ml @ 75 mls/hr IV .BY DURATION [facility] Rx#: [id number] Norepinephrine 8 mg In 609.146 552.130 182.224 Sodium Chloride 0.9% 250 ml @ 0.03 MCG/KG/MIN 3. 686 mls/hr IV .Q24H [facility] Rx#:[id number] Piperacillin-Tazobactam 3 100 .375 gm In Sodium Chloride 0.9% 100 ml @ 25 mls/hr IVPB Q8HR [facility] Rx# :[id number] Potassium Chloride 10 meq 100 100 In Water For Injection 1 100ml.bag @ 100 mls/hr IVPB Q1H [facility] Rx#: [id number] Vasopressin 60 unit In 44.371 Sodium Chloride 0.9% 150 ml @ 0.03 UNITS/MIN 4.59 mls/hr IV .Q24H [facility] Rx#: [id number] fentaNYL (PF). 1,000 mcg 97.896 100 In Sodium Chloride 0.9% 80 ml @ 0.5 MCG/KG/HR 3. 175 mls/hr IV .Q24H [facility] Rx#:[id number] propofoL 1,000 mg In 185.604 100.000 100 Empty Bag 1 bag @ 15 MCG/ KG/MIN 5.715 mls/hr IV . [id number] [facility] Rx#:[id number] Output: Gastric Drainage 350 Urine 255 870 750 Stool 300 Urine/Stool Mix 225 Other: Voiding Method Indwelling Catheter Indwelling Catheter Indwelling Catheter ABP, PAP, CO, CI - Last Documented Arterial Blood Pressure 120/70 - Labs CBC & Chem 7: 09/25/24 17:36 09/25/24 04:15 Labs: Abnormal Lab Results - Last 24 Hours (Table) 09/24/24 09/24/24 09/24/24 Range/Units 15:38 20:06 23:39 WBC (4.50-10.00) 10*3/uL RBC (4.40-5.60) 10*6/uL Hgb (13.0-17.0) g/dL Hct (39.6-50.0) % Plt Count (140-440) 10*3/uL Immature Gran # (0.00-0.04) 10*3/uL Neutrophils # (Manual) (1.3-7.7) k/uL Lymphocytes # (Manual) (1.0-4.8) k/uL Monocytes # (Manual) (0-1.0) k/uL ABG HCO3 (21-25) mmol/L ABG Total CO2 (19-24) mmol/L ABG O2 Saturation (94-97) % Hemoglobin (13.0-17.5) gm/dL Sodium (137-145) mmol/L BUN (9-20) mg/dL Glucose (74-99) mg/dL POC Glucose (mg/dL) 148 H 172 H 185 H (70-110) mg/dL Calcium (8.4-10.2) mg/dL Ionized Calcium Carolyn (4.5-5.3) mg/dL AST (17-59) U/L ALT (4-49) U/L Total Protein (6.3-8.2) g/dL Albumin (3.5-5.0) g/dL Vitamin D 25-Hydroxy (30.0-100.0) ng/mL 09/25/24 09/25/24 09/25/24 Range/Units 04:13 04:15 04:15 WBC 13.69 H (4.50-10.00) 10*3/uL RBC 2.70 L (4.40-5.60) 10*6/uL Hgb 8.5 L (13.0-17.0) g/dL Hct 24.6 L (39.6-50.0) % Plt Count 109 L (140-440) 10*3/uL Immature Gran # 0.20 H (0.00-0.04) 10*3/uL Neutrophils # (Manual) 12.05 H (1.3-7.7) k/uL Lymphocytes # (Manual) 0.55 L (1.0-4.8) k/uL Monocytes # (Manual) 1.10 H (0-1.0) k/uL ABG HCO3 (21-25) mmol/L ABG Total CO2 (19-24) mmol/L ABG O2 Saturation (94-97) % Hemoglobin (13.0-17.5) gm/dL Sodium 131 L (137-145) mmol/L BUN 32 H (9-20) mg/dL Glucose 135 H (74-99) mg/dL POC Glucose (mg/dL) 161 H (70-110) mg/dL Calcium 6.4 L* (8.4-10.2) mg/dL Ionized Calcium Carolyn 4.0 L (4.5-5.3) mg/dL AST 1345 H (17-59) U/L ALT 1386 H (4-49) U/L Total Protein 2.8 L (6.3-8.2) g/dL Albumin 1.3 L (3.5-5.0) g/dL Vitamin D 25-Hydroxy 11.1 L (30.0-100.0) ng/mL 09/25/24 09/25/24 09/25/24 Range/Units 05:18 09:49 12:22 WBC (4.50-10.00) 10*3/uL RBC (4.40-5.60) 10*6/uL Hgb (13.0-17.0) g/dL Hct (39.6-50.0) % Plt Count (140-440) 10*3/uL Immature Gran # (0.00-0.04) 10*3/uL Neutrophils # (Manual) (1.3-7.7) k/uL Lymphocytes # (Manual) (1.0-4.8) k/uL Monocytes # (Manual) (0-1.0) k/uL ABG HCO3 26 H (21-25) mmol/L ABG Total CO2 27 H (19-24) mmol/L ABG O2 Saturation 97.3 H (94-97) % Hemoglobin 8.8 L (13.0-17.5) gm/dL Sodium (137-145) mmol/L BUN (9-20) mg/dL Glucose (74-99) mg/dL POC Glucose (mg/dL) 171 H 195 H (70-110) mg/dL Calcium (8.4-10.2) mg/dL Ionized Calcium Carolyn (4.5-5.3) mg/dL AST (17-59) U/L ALT (4-49) U/L Total Protein (6.3-8.2) g/dL Albumin (3.5-5.0) g/dL Vitamin D 25-Hydroxy (30.0-100.0) ng/mL Microbiology - Last 24 Hours (Table) 09/23/24 10:23 Blood Culture - Preliminary Blood 09/23/24 15:13 Gram Stain - Preliminary Sputum Sputum Culture - Preliminary
[2024-09-26 00:23] LABS: Glucose,Whole Blood 155 mg/dL (70-110)
[2024-09-26] MEDS: ARTIFICIAL TEARS-HYPROMELLOSE DROPS 15 ML BTL BOTH EYES SCH (00:24)
[2024-09-26 00:32] LABS: HCT 22.4 % (39.6-50.0); HGB 7.4 g/dL (13.0-17.0); MCH 30.5 pg (27.0-32.0); MCV 92.2 fL (80.0-97.0); Mean Platelet Volume 11.1 fL (9.5-12.2); RBC 2.43 10*6/uL (4.40-5.60); RDW 17.1 % (11.5-14.5); WBC 8.97 10*3/uL (4.50-10.00)
[2024-09-26 00:35] VITALS: TEMP 100
[2024-09-26 00:36] LABS: Platelet Count 72 10*3/uL (140-440)
[2024-09-26 03:45] VITALS: RESP 20
[2024-09-26 04:08] LABS: Glucose,Whole Blood 112 mg/dL (70-110)
[2024-09-26 04:16] LABS: HGB 7.9 g/dL (13.0-17.0); MCH 31.5 pg (27.0-32.0); MCHC 34.3 g/dL (32.0-37.0); MCV 91.6 fL (80.0-97.0); Mean Platelet Volume 11.4 fL (9.5-12.2); RBC 2.51 10*6/uL (4.40-5.60); RDW 16.9 % (11.5-14.5)
[2024-09-26 04:32] LABS: Platelet Count 67 10*3/uL (140-440)
--- NOTE | 2024-09-26 05:09 | PN ---
PROGRESS NOTE This is a 39-year-old, who is postop day #3. He remains on mechanical ventilation. He is on volume assist-control, rate 20, tidal volume 500, FiO2 of 40%, PEEP of 5. Blood gases show pO2 101, pCO2 38, and pH of 7.44. The patient is on norepinephrine at roughly 22 mcg/minute, propofol 45 mcg/kg/minute, saline at 130 mL an hour, TPN at 75 mL an hour, IV Zosyn, Nimbex at 3 mcg/kg/minute, with [id number] monitoring. The patient will have fludrocortisone added to his regimen, for better blood pressure support. The patient is resting comfortably in room 256. Yesterday, the patient was on both vasopressin and epinephrine. Those two have been weaned off. Labs, x-rays, and all medications are reviewed. Overall prognosis remains very serious. The patient may or may not survive this illness. We will continue to follow. Make all recommendations where appropriate. All labs, x-rays, and medications are reviewed. ANA / TONIAN: [id number] /
[2024-09-26 05:20] LABS: Band Neutrophils % 24 %; Metamyelocytes % 4 %; Myelocytes % 2 %; Neutrophils % (M) 22 %; Nucleated Red Blood Cells 12 /100 WBC (0-0); Total Cells Counted 200
[2024-09-26 05:21] LABS: Metamyelocytes # (M) 0.37 k/uL (0); Myelocytes # (M) 0.18 k/uL (0); WBC 9.15 10*3/uL (4.50-10.00)
--- NOTE | 2024-09-26 05:21 | PN ---
PROGRESS NOTE DATE OF SERVICE: 09/25/2024 SUBJECTIVE: Abdominal pain. The patient remains in the ICU, intubated, and on mechanical ventilation. He is currently off the epinephrine and vasopressin. He remains on Levophed. He is postop day #3 status post exploratory laparotomy, decompression of small bowel, anastomotic resection with ileostomy. The patient does remain mildly tachycardic. White count has come down from 17 to 13. LFTs are elevated. Total bilirubin 1.0. He is on TPN for nutrition. PHYSICAL EXAM: ABDOMEN: Distended. Incision site clean, dry, and intact. Stoma is black and dark. ASSESSMENT: Ischemic bowel, internal hernia, and small-bowel obstruction. PLAN: Continue to monitor patient closely. Continue to monitor stoma. MMODL / IJN: [id number] /
[2024-09-26 05:34] LABS: Ionized Calcium 4.2 mg/dL (4.5-5.3)
[2024-09-26 05:46] LABS: ABG Base Excess 2.9 mmol/L; ABG HCO3 28 mmol/L (21-25); ABG Oxygen Saturation 97.1 % (94-97); ABG PCO2 42 mmHg (35-45); ABG PH 7.43 (7.35-7.45); ABG PO2 91 mmHg (83-108); ABG TCO2 29 mmol/L (19-24)
[2024-09-26 05:56] LABS: African American GFR (CKD) >90 (>60 ml/min/1.73 sqM); Anion Gap 1 mmol/L; Blood Urea Nitrogen 29 mg/dL (9-20); Carbon Dioxide 28 mmol/L (22-30); Chloride 105 mmol/L (98-107); Glucose 100 mg/dL (74-99); Magnesium 2.3 mg/dL (1.6-2.3); Non-African American GFR(CKD) >90 (>60 ml/min/1.73 sqM); Phosphorus 2.2 mg/dL (2.5-4.5); Potassium 3.9 mmol/L (3.5-5.1); Sodium 134 mmol/L (137-145)
[2024-09-26 07:22] VITALS: PULSE 106
--- NOTE | 2024-09-26 07:51 | XR ---
EXAMINATION TYPE: XR chest 1V portable DATE OF EXAM: 09/26/2024 5:19 AM COMPARISON: 09/25/2024 CLINICAL INDICATION: Male, 39 years old with history of mechanical ventilation, difficulty breathing TECHNIQUE: XR chest 1V portable view(s) obtained. FINDINGS: The heart size is normal. The pulmonary vasculature is normal. Small right minimal left pleural effusions are present. Endotracheal tube tip is 4 cm above the jeaneth. Right central venous catheter tip is in the right atr ium. Nasogastric tube transverses the thorax. IMPRESSION: 1. Small bilateral pleural effusions. 2. Lines and catheters discussed above [facility], , 09/26/2024 7:49 AM
--- NOTE | 2024-09-26 09:20 | P.PN ---
Subjective Progress Note Date: 09/26/24 History of present illness; This is a 39-year-old white male with history of Crohn's disease, presented to the ER with chronic massive small bowel obstruction with small bowel dilated up to 15 cm. Patient is known to have history of Crohn's strictures of ileocolonic anastomosis. Patient had to be taken to the operating room by surgery, underwent exploratory laparotomy decompression of small bowel, ileocolonic anastomotic resection, and ileostomy. Patient was found to have small bowel appeared dusky with massive dilatation, it was dilated up to 15 cm in diameter. It was difficult to assess the source of the obstruction hence the patient underwent enterotomy made in the small bowel and then the decompression of the small bowel was performed with suction. Apparently the patient had 7 L of fluid removed from the small bowel, enterotomy was then stapled with a BI stapler. Then the surgeon was able to visualize the small bowel obstruction, surgeon was able to visualize the site of his previous small bowel surgery and the site was noted to have ileotransverse colonic anastomosis. It was unsure if the area prior to the anastomosis was strictured down due to scar tissue or Crohn's disease. Small bowel was transected proximal to the stricture and then the colon was transected distal to the stricture then using the Enseal device the mesentery of the bowel was divided and steps of the pathology. Patient was also noted to have rotation of the small bowel and small bowel was rotated to relieve the torsion. Small bowel appeared viable then the patient underwent ileostomy which was brought up to the right lower quadrant. Patient was transferred to the ICU after surgery and he was quite hypotensive presently intubated mechanically ventilated hypotensive requiring maximal pressors patient is now on maximal norepinephrine at 0.6 mcg/kg/min receiving vasopressin at 0.04 units/min he is also receiving epinephrine being titrated. Patient is intubated and mechanically ventilated. On assist-control rate of 12 which was changed to 16 tidal volume was 500 FiO2 100% which was brought down to 60% and PEEP at 5. ABG showed a pO2 of 279 pCO2 48 pH of 7.24 patient is also receiving bicarb is also on a bicarb drip because prior ABG showed a pH of 7.15 with a PCO2 of 40. WBC count is 13.48 hemoglobin 9.5 platelets are 233. When I saw the patient in the ICU, apparently he needed more venous access according to the nurse taking care of the patient, although he does have a double-lumen catheter in the right IJ area. Went ahead and placed a triple-lumen catheter in the right femoral vein. Recommended more fluids, more blood to be given, and pressors to be titrated accordingly. The overall picture looks very grim, clinically the patient is quite ill, and remains hypotensive in spite of all these pressors. Progress note dated September 23, 2024. 39-year-old male with history of Crohn's disease, who presented to the emergency department, with massive small bowel obstruction, and small bowel dilated up to 15 cm. The patient is currently maintained in the intensive care unit, on the mechanical ventilator. He is on volume assist-control, rate 20, tidal volume 500, FiO2 40%, PEEP of 5. Blood gases from yesterday show pO2 of 256, pCO2 35, pH of 7.39. Today's blood gases on 45% show pO2 of 120, pCO2 of 50, pH of 7.29. He is postoperative day #1. He continues on multiple drips including Nimbex at 3 mcg/kg/min, saline at 130 cc an hour, D5W with 3 ampoules of sodium bicarbonate at 150 cc an hour, fentanyl at 1 mcg/kg/h, norepinephrine at 42 mcg/min, vasopressin at 0.04 units/min, epinephrine at 0.2 mcg/kg/min, propofol at 40 mcg/kg/min, and Zosyn. We will add Florinef, for better blood pressure support. Current laboratory data includes a white count 11.4, hemoglobin 10.3, hematocrit 30.3, platelet count 160,000. Sodium 138, potassium 4.1, chlorides 109, CO2 25, anion gap 4, BUN 22, creatinine 0.83. Glucose is 196. Lactic acid 2.9, calcium 6.1. TSH was normal. Cortisol levels pending. Culture studies are pending. Cultures are thus far negative. Chest x-ray shows bibasilar infiltrates, possible related to atelectasis. 09/24/24 - He is seen and evaluated in the ICU, room 256. He is on the mechanical ventilator, volume assist control , rate of 20, tidal volume of 500, FiO2 40% and PEEP of 5. Blood gases this morning show pO2 of 64, pCO2 of 44, pH of 7.39. He is pos-op day #2. He continues to be on Norepinephrine at .34 mcg/kg/min, Vasopressin at 0.01 units/min, Epinephrine at 0.15 mcg/kg/min, propofol at 45 mcg/kg/min, Nimbex at 3 mcg/kg/min and Zosyn. Current labs include WBCs 17.64, Hgb 9.2, Hct 27.0, PLT 131, Na 133, K 4.0, BUN 28, Cr 0.93, Ca 5.4. Urine culture is negative, sputum cultures continue to be pending at this time. Chest X-ray from this morning shows possible small right pleural effusion. 09/25/24 - He is seen and evaluated in the ICU, room 256. He is on the mechanical ventilator, volume assist control , rate of 20, tidal volume of 500, FiO2 40% and PEEP of 5. Blood gases this morning show pO2 101, pCO2 38, pH 7.44. He is post-op day #3. He continues to be on Norepinephrine at 0.26 mcg/kg/min, sedated on propofol at 45 mcg/kg/min, NS at 130 cc/h, TPN (Vital HP) at 75 cc/h and on Zosyn. Labs show WBCs 13.89, Hgb 8.5, Hct 24.6, PLT 109, Na 131, K 3.9, bicarb 25, BUN 32, Cr 1.14, Ca 6.4, Ionized Ca 4.0, AST 1345, ALT 1386, Albumin 1.3. Sputum and blood cultures continue to be pending at this time. Chest X-ray from this morning shows bibasilar atelectasis. 09/26/24 - He is seen and evaluated in the ICU, room 256. He is on the mechanical ventilator, volume assist control , rate of 20, tidal volume of 500, FiO2 40% and PEEP of 5. Blood gases this morning show pO2 91, pCO2 42, pH 7.43. He is post-op day #4. He has been weaned off all pressors. Continues on TPN (Vital HP) at 95 cc/h, Zosyn and remains sedated on propofol at 45 mcg/kg/min, Fentanyl at 1.5 mcg/kg/h and Nimbex at 4 mcg/kg/min. CT abd/pelvis w/contrast was completed yesterday which showed severe stenosis and possible regions of short segment focal complete occlusion involving the proximal celiac artery, which is new from prior studies. Concerning for sequelae of emboli, with hypoenhancing regions in the right hepatic lobe, spleen and pancreas; interval post op changes and a moderate to large volume of ascites. He was initiated on high intesity heparin infusion. Liver US was also completed which showed hepatomegaly, moderate ascites and clinical correlation for possible cholecystitis. Labs show WBCs 9.15, Hgb 7.9, Hct 23.0, PLT 67, Na 134, K 3.9, bicarb 28, BUN 29, Cr 0.72, Ca 7.0, Ionized Ca 4.2. REVIEW OF SYSTEMS: Pertinent positives and negatives noted in HPI. Physical Exam: General: nontoxic, no distress, appears at stated age; has an oral endotracheal tube in place. Derm: warm, dry, intact Head: atraumatic, normocephalic, symmetric Eyes: EOMI, anicteric sclera Mouth: no lip lesion, mucus membranes moist Cardiovascular: S1 S2 reg, no murmur, rubs, or gallops; distant heart sounds. Lungs: CTA bilateral, no rales, no accessory muscle use Abdominal: soft, non-tender to palpataion, no appreciable organomegaly; blackened, necrotic appearing stoma. Extremities: No cyanosis or edema present. Neuro: Cannot be assessed at this time. Psych: well appearing, appropriate affect Assessment/Plan: #Postop day #3, S/P exploratory laparotomy, decompression of small bowel, ileocolonic anastomotic resection, and ileostomy. #Intubation, and mechanical ventilation, secondary to above surgery. #Severe hypotension, likely related to sepsis/septic shock as well as hypovolemia. #Acute small bowel obstruction, status post resection and ileostomy. #History of Crohn's disease. 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 The patient is seen today in room 256. He remains on mechanical ventilator. He is on volume assist-control, rate 20, tidal volume 500, FiO2 40%, PEEP of 5. Blood gases show pO2 91, pCO2 42, pH is 7.43. The patient is postoperative day #4. He has been weaned off pressors, remains sedated with propofol at 45 mcg/kg/min, fentanyl at 1.5 mcg/kg/h and Nimbex at 4 mcg/kg/min. Heparin infusion initiated and when he had 60 units/kg/h. Continues with TPN (Vital HP) at 95 cc/h and Zosyn. Calcium was noted to be 7.0 and ionized calcium 4.2, replaced with 2 grams calcium gluconate. All pressors were weaned off however patient remains on propofol, fentanyl and Nimbex. Plan will be to wean antibiotics as possible. CT abdomen/pelvis showed severe stenosis and possible regions of short segment focal complete occlusion involving the proximal celiac artery, which is new from prior studies and concerning for sequela of emboli, with hypoenhancing regions of the right hepatic lobe, spleen and pancreas. He was initiated on high intensity heparin infusion once CT scan was read. Apparently, patient is going to be transferred to [facility] sometime today. Labs, x-rays, and all medications are reviewed. We will continue to follow the patient, make recommendations. The patient continues on GI and DVT prophylaxis. Dictation was produced using [employer] dictation software. Please excuse any g rammatical, word or spelling errors. Dictation was produced using [employer] dictation software. please excuse any grammatical, word or spelling errors. Sushil Jimenez MD PGY-1 IM Objective - Vital Signs Vital signs: Vital Signs Temp 100.0 F H 09/26/24 00:00 Pulse 106 H 09/26/24 07:00 Resp 20 09/26/24 07:00 BP 108/73 09/24/24 07:15 Pulse Ox 98 09/26/24 07:00 FiO2 40 09/26/24 07:00 Intake & Output 09/25/24 09/26/24 09/26/24 18:59 06:59 18:59 Intake Total 2716.484 2427.895 209.341 Output Total 1445 3325 60 Balance 1271.484 -897.105 149.341 Weight 83 kg 95.1 kg Intake: IV 1882 1852 146 KVO 150 120 10 Piperacillin-Tazobactam 3 100 100 .375 gm In Sodium Chloride 0.9% 100 ml @ 25 mls/hr IVPB Q8HR [facility] Rx# :[id number] Pressure bag 72 72 6 Sodium Chloride 0.9% 1, 1560 1560 130 000 ml @ 130 mls/hr IV . [id number] [facility] Rx#:[id number] Intake, IV Titration 774.484 575.895 63.341 Amount Cisatracurium 200 mg In 118.081 138.442 Sodium Chloride 0.9% 180 ml @ 1 MCG/KG/MIN 3.81 mls/hr IV .Q24H [facility] Rx#: [id number] Heparin Sod,Pork in 0.45% 105.078 NaCl 25,000 unit In 0.45 % NaCl 1 250ml.bag @ 18 UNITS/KG/HR 14.94 mls/hr IV .[id number] [facility] Rx#: [id number] Norepinephrine 8 mg In 256.403 53.596 Sodium Chloride 0.9% 250 ml @ 0.03 MCG/KG/MIN 3. 686 mls/hr IV .Q24H [facility] Rx#:[id number] Potassium Chloride 10 meq 100 In Water For Injection 1 100ml.bag @ 100 mls/hr IVPB Q1H [facility] Rx#: [id number] fentaNYL (PF). 1,000 mcg 100 99.907 63.341 In Sodium Chloride 0.9% 80 ml @ 0.5 MCG/KG/HR 3. 175 mls/hr IV .Q24H [facility] Rx#:[id number] propofoL 1,000 mg In 200 178.872 Empty Bag 1 bag @ 15 MCG/ KG/MIN 5.715 mls/hr IV . [id number] [facility] Rx#:[id number] Other 60 Output: Gastric Drainage 300 Urine 1220 1275 60 Stool 1650 Urine/Stool Mix 225 Emesis 100 Other: Voiding Method Indwelling Catheter Indwelling Catheter ABP, PAP, CO, CI - Last Documented Arterial Blood Pressure 114/64 - Labs CBC & Chem 7: 09/26/24 04:09 09/26/24 04:09 Labs: Abnormal Lab Results - Last 24 Hours (Table) 09/25/24 09/25/24 09/25/24 Range/Units 04:15 04:15 09:49 RBC (4.40-5.60) 10*6/uL Hgb (13.0-17.0) g/dL Hct (39.6-50.0) % Plt Count (140-440) 10*3/uL Immature Gran # (0.00-0.04) 10*3/uL Lymphocytes # (0.90-5.00) 10*3/uL Monocytes # (0.20-1.00) 10*3/uL Monocytes # (Manual) (0-1.0) k/uL Eosinophils # (0.04-0.35) 10*3/uL Metamyelocytes # (Man) (0) k/uL Myelocytes # (Manual) (0) k/uL Nucleated RBCs (0-0) /100 WBC Immature Plt Fraction (1.1-6.1) % APTT (22.0-30.0) sec ABG HCO3 (21-25) mmol/L ABG Total CO2 (19-24) mmol/L ABG O2 Saturation (94-97) % Hemoglobin (13.0-17.5) gm/dL Sodium (137-145) mmol/L BUN (9-20) mg/dL Glucose (74-99) mg/dL POC Glucose (mg/dL) 171 H (70-110) mg/dL Calcium (8.4-10.2) mg/dL Ionized Calcium Carolyn (4.5-5.3) mg/dL Phosphorus (2.5-4.5) mg/dL Vitamin D 25-Hydroxy 11.1 L (30.0-100.0) ng/mL Vit D 1,25-Dihydroxy 8.8 L (19.9-79.3) pg/mL Cortisol (3.1-22.4) UG/DL 09/25/24 09/25/24 09/25/24 Range/Units 11:07 12:22 16:04 RBC (4.40-5.60) 10*6/uL Hgb (13.0-17.0) g/dL Hct (39.6-50.0) % Plt Count (140-440) 10*3/uL Immature Gran # (0.00-0.04) 10*3/uL Lymphocytes # (0.90-5.00) 10*3/uL Monocytes # (0.20-1.00) 10*3/uL Monocytes # (Manual) (0-1.0) k/uL Eosinophils # (0.04-0.35) 10*3/uL Metamyelocytes # (Man) (0) k/uL Myelocytes # (Manual) (0) k/uL Nucleated RBCs (0-0) /100 WBC Immature Plt Fraction (1.1-6.1) % APTT (22.0-30.0) sec ABG HCO3 (21-25) mmol/L ABG Total CO2 (19-24) mmol/L ABG O2 Saturation (94-97) % Hemoglobin (13.0-17.5) gm/dL Sodium (137-145) mmol/L BUN (9-20) mg/dL Glucose (74-99) mg/dL POC Glucose (mg/dL) 195 H 188 H (70-110) mg/dL Calcium (8.4-10.2) mg/dL Ionized Calcium Carolyn (4.5-5.3) mg/dL Phosphorus (2.5-4.5) mg/dL Vitamin D 25-Hydroxy (30.0-100.0) ng/mL Vit D 1,25-Dihydroxy (19.9-79.3) pg/mL Cortisol 126.0 H (3.1-22.4) UG/DL 09/25/24 09/25/24 09/25/24 Range/Units 17:36 17:36 20:19 RBC 2.48 L (4.40-5.60) 10*6/uL Hgb 7.8 L (13.0-17.0) g/dL Hct 22.8 L (39.6-50.0) % Plt Count 79 L (140-440) 10*3/uL Immature Gran # 0.44 H (0.00-0.04) 10*3/uL Lymphocytes # 0.43 L (0.90-5.00) 10*3/uL Monocytes # 1.13 H (0.20-1.00) 10*3/uL Monocytes # (Manual) (0-1.0) k/uL Eosinophils # 0.01 L (0.04-0.35) 10*3/uL Metamyelocytes # (Man) (0) k/uL Myelocytes # (Manual) (0) k/uL Nucleated RBCs (0-0) /100 WBC Immature Plt Fraction 6.3 H (1.1-6.1) % APTT 33.3 H (22.0-30.0) sec ABG HCO3 (21-25) mmol/L ABG Total CO2 (19-24) mmol/L ABG O2 Saturation (94-97) % Hemoglobin (13.0-17.5) gm/dL Sodium (137-145) mmol/L BUN (9-20) mg/dL Glucose (74-99) mg/dL POC Glucose (mg/dL) 181 H (70-110) mg/dL Calcium (8.4-10.2) mg/dL Ionized Calcium Carolyn (4.5-5.3) mg/dL Phosphorus (2.5-4.5) mg/dL Vitamin D 25-Hydroxy (30.0-100.0) ng/mL Vit D 1,25-Dihydroxy (19.9-79.3) pg/mL Cortisol (3.1-22.4) UG/DL 09/26/24 09/26/24 09/26/24 Range/Units 00:17 00:17 00:21 RBC 2.43 L (4.40-5.60) 10*6/uL Hgb 7.4 L (13.0-17.0) g/dL Hct 22.4 L (39.6-50.0) % Plt Count 72 L (140-440) 10*3/uL Immature Gran # (0.00-0.04) 10*3/uL Lymphocytes # (0.90-5.00) 10*3/uL Monocytes # (0.20-1.00) 10*3/uL Monocytes # (Manual) (0-1.0) k/uL Eosinophils # (0.04-0.35) 10*3/uL Metamyelocytes # (Man) (0) k/uL Myelocytes # (Manual) (0) k/uL Nucleated RBCs (0-0) /100 WBC Immature Plt Fraction (1.1-6.1) % APTT 85.7 H (22.0-30.0) sec ABG HCO3 (21-25) mmol/L ABG Total CO2 (19-24) mmol/L ABG O2 Saturation (94-97) % Hemoglobin (13.0-17.5) gm/dL Sodium (137-145) mmol/L BUN (9-20) mg/dL Glucose (74-99) mg/dL POC Glucose (mg/dL) 155 H (70-110) mg/dL Calcium (8.4-10.2) mg/dL Ionized Calcium Carolyn (4.5-5.3) mg/dL Phosphorus (2.5-4.5) mg/dL Vitamin D 25-Hydroxy (30.0-100.0) ng/mL Vit D 1,25-Dihydroxy (19.9-79.3) pg/mL Cortisol (3.1-22.4) UG/DL 09/26/24 09/26/24 09/26/24 Range/Units 04:07 04:09 04:09 RBC 2.51 L (4.40-5.60) 10*6/uL Hgb 7.9 L (13.0-17.0) g/dL Hct 23.0 L (39.6-50.0) % Plt Count 67 L (140-440) 10*3/uL Immature Gran # 1.97 H (0.00-0.04) 10*3/uL Lymphocytes # (0.90-5.00) 10*3/uL Monocytes # (0.20-1.00) 10*3/uL Monocytes # (Manual) 2.20 H (0-1.0) k/uL Eosinophils # (0.04-0.35) 10*3/uL Metamyelocytes # (Man) 0.37 H (0) k/uL Myelocytes # (Manual) 0.18 H (0) k/uL Nucleated RBCs 12 H (0-0) /100 WBC Immature Plt Fraction (1.1-6.1) % APTT (22.0-30.0) sec ABG HCO3 (21-25) mmol/L ABG Total CO2 (19-24) mmol/L ABG O2 Saturation (94-97) % Hemoglobin (13.0-17.5) gm/dL Sodium 134 L (137-145) mmol/L BUN 29 H (9-20) mg/dL Glucose 100 H (74-99) mg/dL POC Glucose (mg/dL) 112 H (70-110) mg/dL Calcium 7.0 L (8.4-10.2) mg/dL Ionized Calcium Carolyn 4.2 L (4.5-5.3) mg/dL Phosphorus 2.2 L (2.5-4.5) mg/dL Vitamin D 25-Hydroxy (30.0-100.0) ng/mL Vit D 1,25-Dihydroxy (19.9-79.3) pg/mL Cortisol (3.1-22.4) UG/DL 09/26/24 Range/Units 05:42 RBC (4.40-5.60) 10*6/uL Hgb (13.0-17.0) g/dL Hct (39.6-50.0) % Plt Count (140-440) 10*3/uL Immature Gran # (0.00-0.04) 10*3/uL Lymphocytes # (0.90-5.00) 10*3/uL Monocytes # (0.20-1.00) 10*3/uL Monocytes # (Manual) (0-1.0) k/uL Eosinophils # (0.04-0.35) 10*3/uL Metamyelocytes # (Man) (0) k/uL Myelocytes # (Manual) (0) k/uL Nucleated RBCs (0-0) /100 WBC Immature Plt Fraction (1.1-6.1) % APTT (22.0-30.0) sec ABG HCO3 28 H (21-25) mmol/L ABG Total CO2 29 H (19-24) mmol/L ABG O2 Saturation 97.1 H (94-97) % Hemoglobin 7.7 L (13.0-17.5) gm/dL Sodium (137-145) mmol/L BUN (9-20) mg/dL Glucose (74-99) mg/dL POC Glucose (mg/dL) (70-110) mg/dL Calcium (8.4-10.2) mg/dL Ionized Calcium Carolyn (4.5-5.3) mg/dL Phosphorus (2.5-4.5) mg/dL Vitamin D 25-Hydroxy (30.0-100.0) ng/mL Vit D 1,25-Dihydroxy (19.9-79.3) pg/mL Cortisol (3.1-22.4) UG/DL Microbiology - Last 24 Hours (Table) 09/23/24 10:23 Blood Culture - Preliminary Blood 09/23/24 15:13 Gram Stain - Final Sputum Sputum Culture - Final Lizbet tropicalis
== END 2024-09-26 08:00 | DRG 853 ==
LOC: EC 23:34 → 4SSUR 09-22 05:11 → 5NMEDONC 09-22 09:32 → 2SICU 09-22 10:37
PROVIDERS: ADMIT Hospitalist; ATTEND Hospitalist
PROC: 3E033XZ Introduction of Vasopressor into Peripheral Vein, Percutaneous Approach (ICD-10-PCS; 2024-09-22)
PROC: 02HV33Z Insertion of Infusion Device into Superior Vena Cava, Percutaneous Approach (ICD-10-PCS; 2024-09-22)
PROC: 30233N1 Transfusion of Nonautologous Red Blood Cells into Peripheral Vein, Percutaneous Approach (ICD-10-PCS; 2024-09-22)
PROC: 5A1945Z Respiratory Ventilation, 24-96 Consecutive Hours (ICD-10-PCS; 2024-09-22)
PROC: 0BH17EZ Insertion of Endotracheal Airway into Trachea, Via Natural or Artificial Opening (ICD-10-PCS; 2024-09-22)
PROC: 3E0336Z Introduction of Nutritional Substance into Peripheral Vein, Percutaneous Approach (ICD-10-PCS; 2024-09-22)
PROC: 06HM33Z Insertion of Infusion Device into Right Femoral Vein, Percutaneous Approach (ICD-10-PCS; 2024-09-22)
PROC: 0D1B0Z4 Bypass Ileum to Cutaneous, Open Approach (ICD-10-PCS; principal; 2024-09-22 08:46)
PROC: 0D980ZZ Drainage of Small Intestine, Open Approach (ICD-10-PCS; principal; 2024-09-22 08:46)
DX: A41.9 Sepsis, unspecified organism (principal); E43 Unspecified severe protein-calorie malnutrition; J96.00 Acute respiratory failure, unspecified whether with hypoxia or hypercapnia; R57.1 Hypovolemic shock; R65.21 Severe sepsis with septic shock; Z99.11 Dependence on respirator [ventilator] status; K55.9 Vascular disorder of intestine, unspecified; I74.8 Embolism and thrombosis of other arteries; K50.012 Crohn's disease of small intestine with intestinal obstruction; E87.20 Acidosis, unspecified; R18.8 Other ascites; E27.40 Unspecified adrenocortical insufficiency; K46.9 Unspecified abdominal hernia without obstruction or gangrene; E55.9 Vitamin D deficiency, unspecified; I95.89 Other hypotension; E83.51 Hypocalcemia; E86.1 Hypovolemia; E87.6 Hypokalemia; Z90.49 Acquired absence of other specified parts of digestive tract
CPT/HCPCS: 36415; 36430; 71045; 74177; 76705; 80048; 80053; 81001; 82150; 82272; 82306; 82330; 82533; 82652; 82805; 83605; 83690; 83735; 84100; 84443; 84478; 85025; 85027; 85610; 85730; 86140; 86850; 86900; 86901; 86920; 87040; 87070; 87086; 87205; 88307; 94002; 94003; 94640